=== PATIENT | female | born 1965 | race Caucasian/White ===

== ENCOUNTER 2018-06-22 06:37 | Emergency (ER) | payer BC, SELFPAY ==
[2018-06-22 06:39] VITALS: BP 158/102; PULSE 84; RESP 18; TEMP 36.4; O2SAT 100; BMI 28.0
--- NOTE | 2018-06-22 06:44 | RAD_ITS ---
STUDY: X-RAY CHEST REASON FOR EXAM: Female, 52 years old. Chest pain TECHNIQUE: Frontal and lateral views of the chest. COMPARISON: None. FINDINGS: The lungs are clear and expanded. There is no demonstrated pleural abnormality. Normal size heart. Normal mediastinum and luiza. Normal visualized pulmonary arteries. Normal visualized aortic arch and descending thoracic aorta. There are diffuse degenerative changes of the visualized thoracic spine. Normal visualized ribs, clavicles, and shoulders. There is no demonstrated abnormality of the visualized soft tissue structures of the upper abdomen. RAD/Chest PA and Lateral IMPRESSION: Degenerative changes, as described above. No demonstrated acute cardiopulmonary process. Electronically Signed: Miles Raines, at 7:30 EST Tel , Service support ,
--- NOTE | 2018-06-22 06:44 | EKG12_ITS ---
Test Reason : DIZZINESS Blood Pressure : / mmHG Vent. Rate : 082 BPM Atrial Rate : 082 BPM P-R Int : 146 ms QRS Dur : 076 ms QT Int : 386 ms P-R-T Axes : 075 027 036 degrees QTc Int : 450 ms Normal sinus rhythm Normal ECG Confirmed by PAL MCDONOUGH, DAVID ([id number]), news editor JUANITA SAGASTUME ([id number]) on 06/23/2018 3:33:01 PM Referred By: DAVON Confirmed By:DAVID AGUILLON MD
[2018-06-22 06:47] VITALS: O2SAT 98
[2018-06-22] MEDS: Aspirin 81 MG TAB.CHEW 324 MG PO (06:50)
[2018-06-22] MEDS: 0.9% Normal Saline 1,000 ML 1000 ML IV (06:50)
[2018-06-22 06:57] LABS: Basophil% 1.2 % (0-1); Eosinophil# 0.12 X10^3/uL; Eosinophils% 1.5 % (0-5); Hematocrit 43.6 % (37-47); Hemoglobin 14.9 g/dl (12.0-15.0); Lymphocyte % 14.8 % (19-41); Mean Corp Hgb Conc 34.2 g/gl (32-36); Mean Corpuscular Hgb 33.9 pg (27.0-32.0); Mean Corpuscular Volume 99.1 fL (81-99); Mean Platelet Vol. 9.8 fl (6.2-12.0); Monocyte# 0.66 X10^3/uL; Monocyte% 8.2 % (0-10); Neutrophil # 5.98 X10^3/uL (2.7-7.7); Neutrophil % 73.9 % (47-70); Platelet Count 222 K/mm3 (150-450); RBC Distribution Width CV 12.8 % (11.6-14.6); RBC Distribution Width SD 46.5 fl (35.1-43.9); White Blood Count 8.1 K/mm3 (4.4-11.0)
[2018-06-22 06:59] LABS: POSITIVE COUNT NO; POSITIVE DIFFERENTIAL NO; POSITIVE MORPHOLOGY NO
--- NOTE | 2018-06-22 07:10 | CT_ITS ---
STUDY: CTA CHEST REASON FOR EXAM: Female, 52 years old. Chest and upper back pain RADIATION DOSAGE (If Supplied By Facility): CTDIvol = ( 11.07 ) mGy, DLP = ( 438.33 ) mGycm TECHNIQUE: The examination was performed with the intravenous administration of 100 ml of Isovue 300 contrast material. Post-processing of the angiographic images was performed, with multiplanar reformation and 3D reconstruction. Individualized dose optimization techniques were used for this CT. COMPARISON: None. FINDINGS: Normal enhancement of the main pulmonary artery and right and left pulmonary arteries. Normal enhancement of the bilateral peripheral pulmonary arteries. There is no demonstrated pulmonary embolism. Normal thoracic aorta and visualized great vessels. There is no demonstrated aortic dissection. Normal heart and pericardium. Normal mediastinum. Normal hilar regions. Normal visualized trachea and bronchi. The lungs are well expanded. Normal pulmonary parenchyma. Normal pleura. Normal chest wall structures. Normal osseous structures. Normal visualized upper abdomen. CT/CTA Chest W/WO Contrast IMPRESSION: Normal CTA chest examination, without a demonstrated pulmonary embolism or arterial dissection. Electronically Signed: Rico Ward DO at 8:36 EST Tel , Service support ,
[2018-06-22 07:15] LABS: ALB/GLOB Ratio 1.1 RATIO (0.9-2.4); AST(SGOT) 19 U/L (15-37); Alanine Aminotransfer ALT/SGPT 26 U/L (13-56); Albumin, Serum 3.8 g/dL (3.2-5.0); Alkaline Phosphatase 73 U/L (45-117); Anion Gap 8 (5-15); BUN 10 mg/dL (7-18); BUN/Creat Ratio 13.5 RATIO (10-20); Calcium,Total 8.9 mg/dL (8.5-10.1); Chloride 106 mmol/L (98-107); Creatinine, Serum 0.74 mg/dL (0.55-1.02); EST Glomerular Filtration Rate 87 mL/min (>60); Est Glom Filt Rate - Afr Amer 105 mL/min (>60); Estimated Creatinine Clearance 73.56 ml/min; Globulin 3.5 g/dL (2.2-4.2); Glucose 88 mg/dL (74-106); Lipase 77 U/L (73-393); Magnesium 2.1 mg/dL (1.6-2.6); Potassium 3.5 mmol/L (3.5-5.1); Protein, Total 7.3 g/dL (6.4-8.2); Sodium Level 140 mmol/L (136-145)
--- NOTE | 2018-06-22 07:17 | ED.DCSUM_ITS ---
- ER Visit Summary Date of Service: 06/22/18 Chief Complaint: Chest and upper back pain History of Present Illness: The patient is a 52 F past medical history of anxiety. She has not seen a primary care physician for some time her physician retired and she has not followed up with anybody. She denies any history of cardiac disease or hypertension. She states the last several months she has had intermittent chest pain not specifically associated with exertion. Said this morning while getting around at home she developed upper back between her shoulder blades and chest discomfort. She denied any nausea she did have mild dyspnea. No specific radiation to her arms. She states she has had chest pain before typically not in her back. She denies ever having a cardiac workup. She is a smoker. Has family history of hypertension but not necessarily coronary disease. She denies ever having a stress test or heart cath. Currently she is still having symptoms. Physical Examination: White female initial blood pressure 158/102 temperature 97 pulse ox 98% on room air no hypoxia. HEENT exam unremarkable smell tobacco on her breath. Neck nontender no JVD no lymphadenopathy. Lungs clear to auscultation bilaterally. Heart regular rhythm rate about 80 no murmur. Chest wall nontender. No ecchymosis or bruising no subcu air. Abdomen is soft and nontender normal bowel sounds no peritoneal signs. Patient is moving all 4 extremities. Calves are nontender without edema. Both upper and lower extremities are neurovascularly intact. 5 out of 5 doll wig maker strength. Dorsi plantar flexion intact. Equal symmetrical radial pulses. She has no reproducible back pain. She describes it in her upper back between her shoulder blades but there is no signs of trauma. Neurologically she is awake alert with no focal motor deficits. Test Results: Patient undergo a cardiac workup. Her initial EKG shows a sinus rhythm rate of 82 with no signs of [place] CBC is normal with a white count 8. Hemoglobin 14. Initial chest x-ray 2 views shows a normal cardiac silhouette and mediastinum. Normal aorta. There are chronic changes. No obvious masses. CBC normal white count 8. Hemoglobin 14. Electrolytes unremarkable normal creatinine and gap. Liver enzymes normal. Lipase normal. Troponin normal. Due to the patient's chest and back pain and her elevated blood pressure no other acute causes for her pain I did obtain a CTA of the chest which shows no acute signs of dissection or pulmonary emboli. Read by the radiologist and reviewed by myself. Second troponin performed and was normal also. Emergency Department Course and Treatment: Patient treated with p.o. aspirin. Patient is doing well on repeat exam. I have gone over all of her tests with her. She denies discussed strongly that she needs to stop smoking. Discussed with patient option of being admitted did not want to be admitted. She will be referred to a local primary care physician to follow-up with outpatient stress testing. I attempted to order the stress test myself but was unable due to restrictions on who can order the test. Treatment Plan: Stop smoking. Follow-up with local PCP. Outpatient stress testing. Disposition: Discharge Impression: Acute chest pain of uncertain etiology. History of tobacco abuse This note was generated with [facility] dictation software. It may contain incorrect words, spelling, and punctuation that were not noted in review of the chart prior to signing ED Disposition - Plan for ED Patient: Chief Complaint: Chest Pain Referrals: NOT,DEFINED [NON-STAFF] -
[2018-06-22 07:49] VITALS: BP 140/92; PULSE 83; RESP 16; O2SAT 98
[2018-06-22 08:13] VITALS: PULSE 81; RESP 16; O2SAT 97
[2018-06-22 09:34] VITALS: BP 130/84; PULSE 81; RESP 16; O2SAT 97
--- NOTE | 2018-06-22 10:22 | ED.DEP ---
ED Disposition - Plan for ED Patient: Disposition: Home or Assisted Living Chief Complaint: Chest Pain Instructions: ED Chest Pain Atypical Unkn Cause Referrals: Abdoulaye Ross MD [STAFF PHYSICIAN] - As soon as possible Additional Instructions: Stop smoking !! Call follow-up Dr. Abdoulaye Ross or another local primary care physician. Discussed with him possible outpatient stress testing.
== END 2018-06-22 10:28 | disposition home or self-care (01) ==
PROVIDERS: Emergency Medicine; Emergency Provider Emergency Medicine
DX: R07.9 Chest pain, unspecified (principal); F17.200 Nicotine dependence, unspecified, uncomplicated
CPT/HCPCS: 71046; 71275; 80053; 83690; 83735; 84484; 85025; 93005; 96360; 99284; J7030; Q9967; A4216

== ENCOUNTER → 2018-08-30 15:45 | Outpatient (CLI) | payer BC, SELFPAY ==
--- NOTE | 2018-08-30 15:47 | BI_ITS ---
MAMMOGRAPHY - BILATERAL SCREENING 3-D JD SYNTHESIS REASON FOR EXAM: Female, 53 years old. Bilateral Screening 3-D tomosynthesis PERTINENT HISTORY: No significant family history. TECHNIQUE: 2-D mammograms and 3-D Jd synthesis of the breast (s) were performed. CAD was performed. COMPARISON: October 03, 2013 FINDINGS: The breast composition is heterogeneously dense that can obscure small breast masses. There are stable lymph nodes. No dense spiculated masses or suspicious microcalcifications are identified. No architectural distortion is identified. There is no skin thickening or retraction. There has been no significant change since the prior study. BI/SCREENING MAMM (CAD), BILAT IMPRESSION: No mammographic signs of malignancy. Routine yearly mammograms recommended. ASSESSMENT CATEGORY: BIRADS Category 2: Benign. A letter regarding these results will be sent to the patient by the facility within 30 days. FOLLOW UP RECOMMENDATION: Yearly follow up mammogram recommended. (A) Approximately 10% of breast cancers are not detected by mammography. A normal mammogram should not delay biopsy of a clinically suspicious abnormality. Electronically Signed: Dennis Montana MD at 17:16 EDT , Service support ,
== END ==
PROVIDERS: Family Provider Family Medicine; PCP Family Medicine; Referring Provider Family Medicine; Visit Provider Family Medicine
DX: Z12.31 Encounter for screening mammogram for malignant neoplasm of breast (principal)
CPT/HCPCS: 77063; 77067

== ENCOUNTER 2019-01-25 21:59 | Emergency (ER) | payer BC, SELFPAY ==
[2019-01-25 22:00] VITALS: BP 164/105; PULSE 87; RESP 16; TEMP 36.8; O2SAT 98; BMI 25.7
[2019-01-25 22:04] VITALS: TEMP 36.8
--- NOTE | 2019-01-25 22:13 | ED.VIS.GEN ---
History of Present Illness Chief Complaint: Abd Pain Informant: Patient Onset: Days - Onset of discomfort January 23. She said initially was upper abdomen now it is bilateral. Context: Sudden Onset Timing: Continuous Quality: Discomfort and distention Location: Generalized presently Current Severity: Mild Maximum Severity: Moderate Worsened by: Supine position Relieved by: Nothing Associated Symptoms: Nausea, bloating and 3 bowel movements today Narrative: Patient is a 53-year-old woman who has no history of GERD, food intolerance, biliary disease, gynecologic disease or urologic. There is no history of renal or ureteral calculus. She has a chronic cough secondary to smoking. She denies abdominal surgery. She denies fever, chills night sweats. She denies chest pain, pressure or tightness. She denies dyspnea or dyspnea with exertion. She denies orthopnea or PND. She denies leg pain, swelling or discoloration. There is no history of PE or DVT. She denies dysuria, frequency, urgency or hematuria. Prior similar symptoms: No Recent Illness/Hospitalization: No - Past Medical History (1) No significant past medical history Status: Acute Past Medical History - Allergies and Home Meds Allergies/Adverse Reactions: Allergies Penicillins [PCN] Allergy (Verified 01/25/19 22:04) Rash omeprazole [From Prilosec] Adverse Reaction (Verified 01/25/19 22:04) Nausea/Vom/Diarrhea omeprazole magnesium [From Prilosec] Adverse Reaction (Verified 01/25/19 22:04) Nausea/Vom/Diarrhea Primary Care Physician: Sara Swanson MD [Primary Care Provider] - Prior records reviewed: Yes Surgical History: - - EGD, laryngoscopy Lives: With Family Smoking Status: Current every day smoker Alcohol: Rare Drugs: None Review of Systems General: Denies: Chills, Fever, Sweats Eyes: Denies: Visual changes - bilaterally, Diplopia ENT: Denies: Rhinorrhea, Sore throat Cardiovascular: Denies: Chest pain, Palpitations, Heart racing Respiratory: Denies: Dyspnea, Cough, Dyspnea on exertion, Orthopnea, Paroxysmal nocturnal dyspnea Gastrointestinal: Reports: Abdominal pain, Nausea, Diarrhea. Denies: Vomiting, Constipation, Melena, Hematochezia Genitourinary: Denies: Dysuria, Hematuria, Frequency Musculoskeletal: Denies: Myalgias, Arthralgias, Neck pain, Back pain, Swelling, Extremity Pain Skin: Denies: Rash, Wounds Neurological: Denies: Headache, Weakness, Numbness Hematologic: Denies: Easy bruising, Easy bleeding Allergy: Denies: Uticaria, Swelling of the mouth Physical Exam Vital Signs/Narrative: Vital Signs Temp Pulse Resp BP Pulse Ox 01/25/19 22:00 98.2 F 87 16 164/105 H 98 Inital Vital Signs reviewed: Yes General: Well nourished, Well developed, No Acute Distress Head: Normocephalic, Atraumatic Eyes: Perrl, EOMI. Negative for: Pale conjunctiva, Scleral icterus ENT: Moist mucous membranes, No rhinorrhea Neck: Supple, Nontender, No lymphadenopathy, No JVD Cardiovascular: Regular rate, Regular rhythm, No murmurs, Normal S1, Normal S2 Respiratory: No distress, CTA bilaterally, Chest nontender Abdomen: Soft, Nontender, Hypoactive bowel sounds - Tenderness distended and tympanitic to percussion. Negative for: Nondistended, Hepatomegaly, Splenomegaly, Pulsatile mass, Ventral hernia, Inguinal hernia, Umbilical hernia Rectal: Deferred Back: Nontender, Normal Inspection Extremities: Nontender, No edema Skin: Normal color, No rash Neurological: Alert, Oriented x3, Cranial nerves II-XII grossly intact, Normal Strength, Normal Sensation, Normal Gait Psychological: Normal affect, Normal Mood Diagnostic/Tx/Re-eval Chest X-Ray - ED: Read by ED Physician, - - Review x-ray of the abdomen was interpreted by me at 2234. Chest portion reveals no acute process. Cardiac silhouette is normal. Mediastinum is normal. Lung parenchyma is normal. Osseous structures appear normal. The abdominal portion reveals no ossific increased gas pattern with increased fecal matter left side of the colon. Also increase feces noted sigmoid region. No evidence of renal calculus. Impressions Acute Abdomen Series 01/25/19 22:30 IMPRESSION: Normal x-ray examination of the chest, abdomen, and pelvis. Electronically Signed: Johnnie Duque MD at 22:44 EDT , Service support , 01/25/19 22:30 Acute Abdomen Inc Chest [RAD] Stat Laboratory Results 01/25/19 01/25/19 22:21 22:21 WBC 8.2 RBC 4.60 Hgb 16.2 H Hct 46.2 MCV 100.4 H MCH 35.2 H MCHC 35.1 RDW Std Deviation 47.3 H RDW Coeff of Nikko 12.6 Plt Count 236 MPV 9.6 Immature Gran % (Auto) 0.700 Neut % (Auto) 71.3 H Lymph % (Auto) 15.7 L [place] % (Auto) 9.0 Eos % (Auto) 2.3 Baso % (Auto) 1.0 Absolute Neuts (auto) 5.8 Absolute Lymphs (auto) 1.29 Nucleated RBC % 0 Sodium 138 Potassium 3.8 Chloride 104 Carbon Dioxide 30.0 Anion Gap 4 L BUN 12 Creatinine 0.74 Estim Creat Clear Calc 75.92 Est GFR (MDRD) Af Amer 105 Est GFR (MDRD) Non-Af 87 BUN/Creatinine Ratio 16.2 Glucose 100 Calcium 9.8 - Medical Decision Making With complaint of bloating and distended tympanitic abdomen with no sniffing a tenderness and decreased bowel sounds concern patient may have ileus versus obstipation since she describes small stool today. She states this is diarrhea because she went 3 times. He was treated with 20 mg of Bentyl p.o. If laboratory results are normal suspect patient's abdominal discomfort is secondary to obstipation. ED Disposition - Plan for ED Patient: Disposition: Home or Assisted Living Diagnosis: Abdominal pain, bilateral upper quadrant, Obstipation Prescriptions: Dicyclomine HCl [Bentyl] 20 mg PO TIDAC #10 cap Prescription Printed Referrals: Sara Swanson MD [Primary Care Provider] - 3-5 Days if not improving Additional Instructions: Recommend Metamucil 3 times a day for the next week then twice a day.
[2019-01-25] MEDS: Dicyclomine 10 MG Capsule 20 MG PO (22:17)
--- NOTE | 2019-01-25 22:30 | RAD_ITS ---
STUDY: X-RAY - ACUTE ABDOMINAL SERIES REASON FOR EXAM: Female, 53 years old. Abdominal distention and pain TECHNIQUE: Single view of the chest. Supine, and erect view(s) of the abdomen were obtained. COMPARISON: 06/22/2018. FINDINGS: The lungs are clear and expanded. Normal size heart. Normal mediastinum and luiza. Normal visualized pulmonary arteries. Normal visualized aortic arch and descending thoracic aorta. There is a non-specific bowel gas pattern. No dilated loops of bowel. No evidence for obstruction. The soft tissue structures of the abdomen and pelvis are unremarkable. Normal visualized osseous structures. RAD/Acute Abdomen Inc Chest IMPRESSION: Normal x-ray examination of the chest, abdomen, and pelvis. Electronically Signed: Johnnie Duque MD at 22:44 EDT , Service support ,
[2019-01-25 22:32] LABS: Absolute Lymphocyte Count 1.29 X10^3/uL (0.83-4.51); Absolute Neutrophil Count 5.8 X10^3/uL (2.0-7.7); Basophil# 0.08 X10^3/uL; Eosinophil# 0.19 X10^3/uL; Eosinophils% 2.3 % (0-5); Hematocrit 46.2 % (37-47); Hemoglobin 16.2 g/dL (12.0-15.0); Lymphocyte # 1.29 X10^3/ul (4.0); Lymphocyte % 15.7 % (19-41); Mean Corp Hgb Conc 35.1 g/dL (32-36); Mean Corpuscular Hgb 35.2 pg (27.0-32.0); Mean Corpuscular Volume 100.4 fL (81-99); Mean Platelet Vol. 9.6 fl (6.2-12.0); Monocyte# 0.74 X10^3/uL; NRBC Flagged by Analyzer 0 % (0-5); Neutrophil # 5.84 X10^3/uL (2.7-7.7); Neutrophil % 71.3 % (47-70); Platelet Count 236 K/mm3 (150-450); RBC Distribution Width CV 12.6 % (11.6-14.6); RBC Distribution Width SD 47.3 fl (35.1-43.9); White Blood Count 8.2 K/mm3 (4.4-11.0)
[2019-01-25 22:43] LABS: Anion Gap 4 (5-15); BUN 12 mg/dL (7-18); BUN/Creat Ratio 16.2 RATIO (10-20); Calcium,Total 9.8 mg/dL (8.5-10.1); Chloride 104 mmol/L (98-107); Creatinine, Serum 0.74 mg/dL (0.55-1.02); EST Glomerular Filtration Rate 87 mL/min (>60); Est Glom Filt Rate - Afr Amer 105 mL/min (>60); Estimated Creatinine Clearance 75.92 ml/min; Glucose 100 mg/dL (74-106); Potassium 3.8 mmol/L (3.5-5.1); Sodium Level 138 mmol/L (136-145)
== END 2019-01-25 22:59 | disposition home or self-care (01) ==
PROVIDERS: Emergency Provider Emergency Medicine; Family Provider Family Medicine; PCP Family Medicine
DX: R10.11 Right upper quadrant pain (principal); R10.12 Left upper quadrant pain; K59.00 Constipation, unspecified; F17.200 Nicotine dependence, unspecified, uncomplicated
CPT/HCPCS: 74022; 80048; 85025; 99283; A4216

== ENCOUNTER 2020-08-01 04:54 | Emergency (ER) | payer OTHER, SELFPAY ==
[2020-08-01 04:55] VITALS: BP 170/100; PULSE 85; RESP 17; TEMP 36.9; O2SAT 100; BMI 29.2
[2020-08-01 04:57] VITALS: BP 170/100; PULSE 85; RESP 17; TEMP 36.9; O2SAT 100
[2020-08-01 05:01] VITALS: BP 162/97
--- NOTE | 2020-08-01 05:03 | ED.RN ---
called for ekg per rn request, pulled old ekgs for
--- NOTE | 2020-08-01 05:08 | RAD_ITS ---
STUDY: X-RAY CHEST REASON FOR EXAM: Female, 54 years old. covid+16 days ago. Continues coughing, coughed all night. Chest pain/pressure. Can''t get a deep breath. Pain on left side of chest with deep inspiration. TECHNIQUE: Single AP portable view of the chest. COMPARISON: 01/25/2019 FINDINGS: Lungs are mildly hyperinflated. The lungs are clear. There is no demonstrated pleural abnormality. Normal size heart. Normal mediastinum and luiza. Normal visualized pulmonary arteries. Normal visualized aortic arch and descending thoracic aorta. Normal visualized thoracic spine. Normal visualized ribs, clavicles, and shoulders. There is no demonstrated abnormality of the visualized soft tissue structures of the upper abdomen. RAD/Chest 1 View (Portable) IMPRESSION: Hyperinflated lungs. Lungs are clear. Electronically Signed: Rico Ward DO at 5:27 EST Tel , Service support ,
--- NOTE | 2020-08-01 05:08 | EKG12_ITS ---
Test Reason : CP Blood Pressure : / mmHG Vent. Rate : 080 BPM Atrial Rate : 080 BPM P-R Int : 138 ms QRS Dur : 082 ms QT Int : 372 ms P-R-T Axes : 050 052 032 degrees QTc Int : 429 ms Normal sinus rhythm Normal ECG Confirmed by RALPH PARISH MD ([id number]), newspaper editor managing CHERRIE ENRIQUEZ ([id number]) on 08/06/2020 10:34:15 AM Referred By: LYDIA Confirmed By:RALPH PARISH MD
[2020-08-01 05:11] VITALS: O2SAT 99
[2020-08-01 05:20] LABS: Absolute Lymphocyte Count 1.23 X10^3/uL (0.83-4.51); Absolute Neutrophil Count 4.5 X10^3/uL (2.0-7.7); Basophil# 0.09 X10^3/uL; Basophil% 1.3 % (0-1); Eosinophil# 0.07 X10^3/uL; Hematocrit 42.3 % (37-47); Hemoglobin 14.6 g/dL (12.0-15.0); Lymphocyte # 1.23 X10^3/ul (4.0); Lymphocyte % 18.4 % (19-41); Mean Corp Hgb Conc 34.5 g/dL (32-36); Mean Corpuscular Hgb 33.3 pg (27.0-32.0); Mean Corpuscular Volume 96.6 fL (81-99); Mean Platelet Vol. 10.3 fl (6.2-12.0); Monocyte# 0.75 X10^3/uL; Monocyte% 11.2 % (0-10); NRBC Flagged by Analyzer 0 % (0-5); Neutrophil # 4.51 X10^3/uL (2.7-7.7); Neutrophil % 67.7 % (47-70); Platelet Count 259 K/mm3 (150-450); RBC Distribution Width CV 12.7 % (11.6-14.6); RBC Distribution Width SD 45.8 fl (35.1-43.9); Red Blood Count 4.38 M/mm3 (4.2-5.4); White Blood Count 6.7 K/mm3 (4.4-11.0)
[2020-08-01 05:25] LABS: Prothrombin Time (Protime)PT. 12.2 SECONDS (11.7-14.9)
[2020-08-01 05:27] LABS: D-Dimer Quantitative (DVT/PE) 0.33 FEU/ug/m (0.27-0.49)
--- NOTE | 2020-08-01 05:31 | ED.RN ---
DISCONTINUED ISOLATION PRECAUTIONS.
--- NOTE | 2020-08-01 05:33 | ED.VIS.DYS ---
History of Present Illness Chief Complaint: Chest Pain Informant: Patient Onset: Days Quality: Wheezing Associated Symptoms: Clear sputum, Cough. Negative for: Fever, Rhinorrhea, Sweats Chest Pain: Pressure Narrative: Patient is a 54-year-old female with history of tobacco use presenting with cough. Patient states she had Covid 21 days ago and has a positive after 5 days of symptoms. She states her course was relatively mild. Her symptoms had resolved however over the past week she has had a worsening cough. She states her cough is productive of clear sputum. She states last night she could not sleep because she was coughing all night which is why she came to the ER today. She notes that she is also had chest pressure and tightness. Patient denies any fever or chills. She denies any swelling of her legs. She has a history of DVT or PE. Patient states she had a telehealth appointment yesterday afternoon but canceled because she did not think that actually able to do anything for her. She is concerned she might have an associated pneumonia. No GI or symptoms. No other complaints at this time. Prior similar symptoms: No Recent Illness/Hospitalization: Yes - Covid 21 days ago Past Medical History - Allergies and Home Meds Allergies/Adverse Reactions: Allergies Penicillins [PCN] Allergy (Verified 01/25/19 22:04) Rash omeprazole [From Prilosec] Adverse Reaction (Verified 01/25/19 22:04) Nausea/Vom/Diarrhea omeprazole magnesium [From Prilosec] Adverse Reaction (Verified 01/25/19 22:04) Nausea/Vom/Diarrhea Primary Care Physician: Sara Swanson MD [Primary Care Provider] - Past Medical History: None Surgical History: - - EGD, laryngoscopy Smoking Status: Current every day smoker Review of Systems General: Denies: Chills, Fever, Sweats Eyes: Denies: Visual changes - bilaterally, Diplopia ENT: Denies: Rhinorrhea, Sore throat Cardiovascular: Reports: - - Chest tightness. Denies: Chest pain, Palpitations Respiratory: Reports: Cough, Sputum. Denies: Dyspnea, Dyspnea on exertion Gastrointestinal: Denies: Abdominal pain, Nausea, Vomiting, Diarrhea, Melena, Hematochezia Genitourinary: Denies: Dysuria, Hematuria, Frequency Musculoskeletal: Denies: Back pain, Extremity Pain Skin: Denies: Rash, Wounds Neurological: Denies: Headache, Weakness, Numbness Physical Exam Vital Signs/Narrative: Vital Signs Temp Pulse Resp BP Pulse Ox 08/01/20 05:11 99 08/01/20 05:01 162/97 H 08/01/20 04:57 98.4 F 85 17 170/100 H 100 08/01/20 04:55 98.4 F 85 17 170/100 H 100 Inital Vital Signs reviewed: Yes General: Well nourished, Well developed, No Acute Distress Head: Normocephalic, Atraumatic Eyes: Perrl, EOMI ENT: Moist mucous membranes, No rhinorrhea Neck: Supple, Nontender, No JVD Cardiovascular: Regular rate, Regular rhythm, No murmurs Respiratory: No distress, CTA bilaterally, Chest nontender. Negative for: Wheezing, Diminished Abdomen: Soft, Nontender, Nondistended, Normal bowel sounds Back: Nontender, Normal Inspection Extremities: Nontender, No edema Skin: Normal color, No rash Neurological: Alert, Oriented x3, Cranial nerves II-XII grossly intact, Normal Strength, Normal Sensation Psychological: Normal affect, Normal Mood Diagnostic/Tx/Re-eval Chest X-Ray - ED: 1 View, Read by ED Physician, Read by Radiologist, No Acute Disease, - - Hyperinflated Clinical Impression(s) from Imaging Studies Chest X-Ray 08/01/20 05:08 IMPRESSION: Hyperinflated lungs. Lungs are clear. Electronically Signed: Rico Ward DO at 5:27 EST Tel , Service support , Laboratory Data 08/01/20 08/01/20 08/01/20 05:10 05:10 05:10 WBC 6.7 RBC 4.38 Hgb 14.6 Hct 42.3 MCV 96.6 MCH 33.3 H MCHC 34.5 RDW Std Deviation 45.8 H RDW Coeff of Nikko 12.7 Plt Count 259 MPV 10.3 Immature Gran % (Auto) 0.400 Neut % (Auto) 67.7 Lymph % (Auto) 18.4 L [place] % (Auto) 11.2 H Eos % (Auto) 1.0 Baso % (Auto) 1.3 H Absolute Neuts (auto) 4.5 Absolute Lymphs (auto) 1.23 Nucleated RBC % 0 PT 12.2 INR 1.0 D-Dimer Quant (PE/DVT) 0.33 Sodium 137 Potassium 3.4 L Chloride 104 Carbon Dioxide 28.0 Anion Gap 5 BUN 13 Creatinine 0.80 Estim Creat Clear Calc 66.50 Est GFR (MDRD) Af Amer 96 Est GFR (MDRD) Non-Af 80 BUN/Creatinine Ratio 16.3 Glucose 122 H Calcium 9.2 Troponin I < 0.015 - Rhythm Strip Rhythm Strip: Sinus Rhythm Rate: 80 Ectopy: None - EKG Initial EKG Interpretation: Sinus Rhythm, - - Normal sinus rhythm at a rate of 80Normal intervalsNormal axisNormal ST segmentsNo change prior to prior EKG on 06/22/2018Interpreted by emergency medicine physician - Medical Decision Making Patient is evaluated for cough. She also has associated chest tightness. Her symptoms going on for a week. They were worse tonight. Patient's vital signs are significant only for hypertension. She does not have a presentation consistent with a hypertensive emergency. Her symptoms are atypical for ACS. EKG does not show any acute ischemic changes and her troponin is negative. Patient's only PE risk factor is age. Her D-dimer is normal and I do not suspect a PE or think a CTA is indicated at this time. Chest x-ray does not show any acute infiltrates or or other acute process. Patient lung sounds are clear. While she did have Covid 3+ weeks ago her symptoms have resolved and I do not think this is necessarily related to her Covid infection. Especially as she describes it as being a mild 1. Patient has a benign physical exam. Patient reports of postnasal drip sensation. Likely she has a viral illness/bronchitis. I do not appreciate any wheezing on exam however patient will be given an albuterol inhaler she does have hyperinflation and a history of tobacco use. I do not think steroids are indicated at this time. Patient is not hypoxic. Patient is counseled to avoid medications with decongestants in them as this might be causing her blood pressure be elevated. She states she has been taking Advil D all week. She is encouraged to follow-up with her primary care doctor. Patient is counseled on signs and symptoms requiring return to the emergency room. Patient verbalizes agreement and understand this plan. Patient discharged home in stable and improved condition. ED Disposition - Plan for ED Patient: Disposition: Home or Assisted Living Diagnosis: Cough, Tobacco abuse, Tightness in chest Instructions: ED Bronchitis, No Antibiotic (Adult) Prescriptions: Benzonatate [Tessalon Perle] 200 mg PO TID PRN PRN #20 cap PRN Reason: Cough Transmission Status: Pending to [id number] Albuterol Inhaler [Ventolin Hfa] 1 - 2 puff INHALATION Q4H PRN PRN #1 inhaler PRN Reason: Wheezing Transmission Status: Pending to [id number] Referrals: Sara Swanson MD [Primary Care Provider] - Additional Instructions: You do not have any findings consistent with pneumonia, blood clots or heart attack. You are safe to go home today. I suspect you have a viral syndrome that is causing you to have your symptoms. Please follow-up with your primary care doctor. Try to avoid medications with decongestants in them as they can cause your blood pressure to become elevated.
[2020-08-01 05:34] LABS: Anion Gap 5 (5-15); BUN 13 mg/dL (7-18); BUN/Creat Ratio 16.3 RATIO (10-20); Calcium,Total 9.2 mg/dL (8.5-10.1); Chloride 104 mmol/L (98-107); EST Glomerular Filtration Rate 80 mL/min (>60); Est Glom Filt Rate - Afr Amer 96 mL/min (>60); Glucose 122 mg/dL (74-106); Potassium 3.4 mmol/L (3.5-5.1); Sodium Level 137 mmol/L (136-145)
[2020-08-01 06:07] VITALS: BP 160/99; PULSE 86; RESP 18; O2SAT 100
== END 2020-08-01 06:07 | disposition home or self-care (01) ==
PROVIDERS: Emergency Provider Emergency Medicine; PCP Family Medicine
DX: R05 Cough (principal); F17.200 Nicotine dependence, unspecified, uncomplicated; R07.89 Other chest pain; Z86.718 Personal history of other venous thrombosis and embolism
CPT/HCPCS: 71045; 80048; 84484; 85025; 85379; 85610; 93005; 99283; A4216

== ENCOUNTER → 2020-10-12 13:22 | Outpatient (CLI) | payer OTHER, SELFPAY ==
--- NOTE | 2020-10-12 13:24 | VDLE_ITS ---
Reason For Study: Pain, Swelling Procedure LEFT Exam performed in department. GSV is normal. This is a venous duplex using B-mode, color CFV is compressible, spontaneous, phasic, flow and spectral Doppler. competent, and demonstrates normal A preliminary report was called and/or faxed augmentation. to Dr. Swanson. FV is compressible, spontaneous, phasic, competent and demonstrates normal augmentation. POP V is compressible, spontaneous, phasic, competent and demonstrates normal augmentation. T/P Trunk is compressible. PTV is compressible. LT PerV is compressible. Hypoechoic, non vascular structure noted Lt Pop Fossa measuring 4.94cm x 1.04cm. VL/Venous Duplex US, Unilateral Interpretation Summary There is no evidence of left lower extremity deep vein thrombosis. Left great s aphenous vein appears patent and compressible segmentally. Left popliteal space 4.94 x 1.04 cm cystic structure location tejeda consistent with a Gale's cyst Ordering Physician: Sara Swanson Referring Physician: Sara Swanson Performed By: Alee Curry, IKZZY, RVT
== END ==
PROVIDERS: PCP Family Medicine; Referring Provider Family Medicine; Visit Provider Family Medicine
DX: M71.22 Synovial cyst of popliteal space [Baker], left knee (principal); M79.662 Pain in left lower leg
CPT/HCPCS: 93971

== ENCOUNTER 2021-02-03 11:58 | Emergency (ER) | payer OTHER, SELFPAY ==
[2021-02-03 11:59] VITALS: BP 152/92; PULSE 79; RESP 16; TEMP 36.5; O2SAT 97; BMI 24.6
--- NOTE | 2021-02-03 12:56 | ED.RN ---
1256: Pt states i feel fine and i dont want to wait here all day. This RN explained the importance of being evaluated by an ED physician, but pt insists on leaving. Informed pt that if she feels worse she may always return.
--- NOTE | 2021-02-03 13:30 | EKG12_ITS ---
Test Reason : CP Blood Pressure : / mmHG Vent. Rate : 071 BPM Atrial Rate : 071 BPM P-R Int : 148 ms QRS Dur : 082 ms QT Int : 398 ms P-R-T Axes : 045 015 017 degrees QTc Int : 432 ms Normal sinus rhythm with sinus arrhythmia Normal ECG Confirmed by JEM MCDONOUGH, RALPH ([id number]), photo editor CHERRIE ENRIQUEZ ([id number]) on 02/07/2021 10:56:14 AM Referred By: JENNIFER/AYO Confirmed By:RALPH PARISH MD
== END 2021-02-03 12:56 | disposition left against medical advice (07) ==
LOC: ED 13:08
PROVIDERS: PCP Family Medicine
DX: R07.9 Chest pain, unspecified (principal); Z53.21 Procedure and treatment not carried out due to patient leaving prior to being seen by health care provider
CPT/HCPCS: 93005

== ENCOUNTER → 2021-02-05 06:23 | Outpatient (CLI) | payer OTHER, SELFPAY ==
--- NOTE | 2021-02-05 06:33 | MRI_ITS ---
STUDY: MRI CERVICAL SPINE WITHOUT CONTRAST REASON FOR EXAM: Female, 55 years old. WEAKNESS RIGHT ARM, HX DISC HERNIATIONS TECHNIQUE: Standardized fat and water weighted pulse sequences were obtained in the sagittal and axial planes. COMPARISON: 01/17/2013 FINDINGS: Normal foramen magnum and brainstem-cervical cord junction. Normal craniovertebral junction. Normal anterior atlantoaxial articulation. Normal odontoid process. Normal cervical lordosis. Normal vertebral bodies and posterior osseous elements. C2-3: Normal endplates. Normal disc height, signal and morphology. Normal central canal and intervertebral neural foramina. C3-4: Narrowed disc space and mild endplate spurring. Normal central canal. Moderate right neuroforaminal stenosis and mild to moderate narrowing on the left secondary to bony hypertrophy. C4-5: Mild endplate spurring.. Normal disc height, signal and morphology. Mild narrowing of the central canal.. Moderate bilateral neuroforaminal stenosis secondary to bony hypertrophy. C5-6: Mild endplate spurring.. Normal disc height, signal and large right posterolateral/foraminal disc protrusion.. Mild narrowing of central canal. Severe right neuroforaminal stenosis secondary to disc disease and bony hypertrophy C6-7: Normal endplates. Normal disc height, signal and morphology. Normal central canal and moderate to severe bilateral neuroforaminal stenosis secondary to bony hypertrophy. C7-T1: Normal endplates. Normal disc height, signal and morphology. Normal central canal and intervertebral neural foramina. Normal cervical cord. Normal visualized soft tissue structures. There has been mild interval progression of the degenerative disease when compared with previous exam MRI/Spine Cervical (Routine) IMPRESSION: No evidence for acute fracture or other significant bony pathology.. Spondylosis and multilevel spinal stenosis secondary to disc disease and bony hypertrophy most severe at C5-6 and C6-7 Findings as above Electronically Signed: Dawson Ramos MD at 15:49 EDT , Service support ,
== END ==
PROVIDERS: PCP Family Medicine; Referring Provider Family Medicine; Visit Provider Family Medicine
DX: M47.22 Other spondylosis with radiculopathy, cervical region (principal)
CPT/HCPCS: 72141

== ENCOUNTER 2021-02-06 08:00 | Outpatient (RCR) | payer OTHER, SELFPAY ==
--- NOTE | 2021-01-15 12:48 | HP.PTEVAL_ITS ---
Patient's Visit Information DEWEY KIM is a 55 year old F referred to Physical Therapy by Dr. Sara Swanson MD with a diagnosis of R CERVICAL RADICULOPATHY. Date of Evaluation: 01/15/21 Physical Therapist: Angie Shay PT, Cert MDT - Visit Plan Frequency: 2-3x /Week Duration: 4-6 Weeks Plan: START SLOW AND PROGRESS TOLERATED. US TO RIGHT SHLD AND ELBOW NEEDED. FOCUS ON RIGHT UE PAIN RELIEF, ROM AND STRENGTH. POSTURE CORRECTION/STRENGTHENING, INSTRUCTION IN APPROPRIATE BODY MECHANICS AND ACTIVITY MODIFICATIONS. SHANNAN UE ROM, STRETCHING AND STRENGTHENING. HEP INSTRUCTION. CONSIDER: REP RET IN SITTING. REP RET IN LYING. SCAP SQUEEZES. DEEP NECK F LEXOR LIFT. PRONE W'S. UE WALL SLIDES. PRONE ROWS. UE TBAND WALL WALKS. ANTERIOR/MIDDLE SCALENE STRETCH. UPPER TRAP STRETCH. LEVATOR SCAPULAE STRETCH. CHEST/PEC MAJOR AND MINOR STRETCH - Subjective Work/Leisure: [employer]. ON MEDICAL LEAVE FOR THIS SINCE 01/03/21 FOR THIS. HAS BEEN WORKING AT [employer] ABOUT 5 YEARS. WORK INVOLVES STANDING MOST OF THE TIME AND CONSTANT MOVEMENT OF ARMS AND LIFTING. SOMETIMES LIFTS 75 LBS. Present symptoms: PAIN DOWN ENTIRE RIGHT ARM FROM SHLD TO WRIST. NUMBNESS AND TINGLING SOMETIMES AT NIGHT. RIGHT UE IS VERY WEAK. FATIGUE. Present since: FLARE UP STARTED ABOUT 2-3 WEEKS AGO. Pain Scale: Worst - 8/10 Least - 4/10. Currently: 5/10. Commenced as a result of: NO APPARENT REASON. Symptoms at onset: RIGHT UPPER ARM PAIN AND ELBOW SWELLING AND R UE WEAKNESS. Worse: LIFTING, REACHING, BENDING ELBOW. Better: SUPPORTING ARM AND NOT USING IT. Disturbed sleep: YES - WAKES HER UP AT NIGHT. Previous history/Previous treatment: PATIENT HAS HISTORY OF RIGHT CERVICAL RADICULOPATHY WITH NERVE DAMAGE 2012 TO 2014 TREATED WITH PT AND INJECTIONS BUT NO SURGERY. PATIENT RPEORTS ABOUT 75% IMPROVEMENT IN HER RIGHT UE PRIOR TO THIS FLARE UP. NO TREATMENT SINCE ABOUT 2014 FOR THIS. This episode: AT ONSET: AIR CAST, ICE AND IBUPROFEN WITH DX OF TENNIS ELBOW AT WORK INITIALLY. Dizziness: NO. Tinnitis: NO. Nausea: NO. Shortness of Breath: NO. Difficulty Swollowing: NO. Gait: NORMAL. Accidents: NO. Unexplained weight loss: NO. Imagin EMG'S AND 3 MRI'S IN THE PAST FOR CERVICAL RADICULOPATHY. MRI ORDERED BUT NOT SCHEDULED YET. PMH/Recent major surgery: SMOKER. ANXIETY. - Objective Sitting Posture/Standing Posture: POOR. FH. RSH'S. Active Correction of posture: NE. Other Observations: INDEP GAIT AND TRANSFERS. Motor deficit: RIGHT APPLICATION SUPPORT LEAD STRENGTH 22 LBS, LEFT 35 LBS. PATIENT IS RIGHT HAND DOMINANT BUT HAS H/O RIGHT UE N. DAMAGE. RIGHT WRIST STRENGTH INTO FLEX AND EXT 4/5. RIGHT ELBOW FLEX 3-/5, ELBOW EXT 4-/5, SHLD FLEX 3-/5, ABD 3-/5, IR 4-/5, ER 3-/5. ROM deficit: 145 DEG RIGHT SHLD FLEX (ABOUT 20% LIMITED COMPARED TO THE LEFT) AND FULL RIGHT ELBOW EXTENSION. 125 DEG ACTIVE RIGHT SHLD FLEXION AND 106 DEG ABD. SUPINE PASSIVE R SHLD ER TO 55 DEG AND IR TO 43 DEG BUT ACTIVE ER TO 30 DEG. AROM TESTING OF RIGHT UE IN SITTING INCREASES C/O RIGHT SHLD PAIN AND ELBOW PAIN. Dural Signs: POSITIVE RIGHT UE. Cervical Mvmt Loss: Flex: NIL. Pro: NIL. Ext: MOD TO URMILA. Ret: MOD. RSB: MOD. LSB: MOD. R Rot: MIN. L Rot: MIN. PATIENT C/O INCREASED PAIN IN NECK WITH CERVCIAL ROM TESTING ALL PLANES ESPECIALL CERVICAL EXTENSION. CERVICAL ROM TESTING HAS NE ON RIGHT UE SX'S. Postural strength: POOR. Palpation: TENDERNESS WITH PALPATION OF SHANNAN UT REGIONS AND INCREASED MUSCLE TONE AND TRIGGER POINTS OF UT'S BUT NO ACUTE UPPER THORACIC, CERVICAL OR RIGHT SHLD TENDERNESS. SHE IS TENDER HOWEVER IN THE RIGHT LATERAL ELBOW REGION. OTHER: POSITIVE RIGHT LATERAL EPICONDYLITIS TEST. TREATMENT: INSTRUCTED PATIENT TO CONTINUE WITH ICE AND REST. ALSO INSTRUCTED PATIENT IN STANDING TABLE WALK AWAYS FOR GENTLE PASSIVE SHLD FLEXION. - Balance/Special Test Scores Oswestry Neck Score: 22 - Goals Goal 1:: DECREASE C/O NECK AND RIGHT UE SX'S. Goal Time Frame: 4-6 Weeks Goal 2:: IMPROVE PERSONAL CARE, LIFTING, READING, SLEEP, WORK, DRIVING AND RECREATIONAL FUNCTION. Goal Time Frame: 4-6 Weeks Goal 3:: INSTRUCT IN PROPHYLAXIS Goal Time Frame: 4-6 Weeks Goal 4:: INCREASE RIGHT UE FUNCTIONAL ROM TO WFL TO ALLOW FOR RETURN TO PLOF. Goal Time Frame: 4-6 Weeks Goal 5:: INCREASE R UE FUNCTIONAL STRENGTH TO WFL TO ALLOW FOR RETURN TO PLOF. Goal Time Frame: 4-6 Weeks - Anticipated Interventions Patient/Client Instruction: Educate patient on: Condition, Plan of Care, Risk Factors For the Purpose of:: To improve self management Therapeutic Exercise to Include: Strength training, Body mechanics, Postural training, Flexibilty training, Neuromotor development, Passive ROM, Active ROM, Scapular Strength/Stabilization For the Purpose of:: To decrease pain, To increase ROM, To improve muscle performance and motor function, To improve ability to perform ADL's, To increase tolerance to activity/condition/position, To improve ability of physical actions for home/community/work/leisure Thank you for the opportunity to evaluate your patient. For Medicare and Medicare HMO plans, please review the plan of care and approve it. It will need to be FAXED BACK to us at [phone] for Medicare purposes. For Medicare only, by signing this I certify the plan of care. Please let me know if there are questions or concerns regarding this plan of care. Physician Signature: Date:
--- NOTE | 2021-04-23 13:15 | HP.PT.NRP ---
DEWEY KIM was seen in my office for initial evaluation on 01/15/21. The following Plan of Care was established for this patient: Initial Frequency: 2-3x /Week Initial Duration: 4-6 Weeks Patient/Client Instruction: Educate patient on: Condition, Plan of Care, Risk Factors For the Purpose of:: To improve self management Therapeutic Exercise to Include: Strength training, Body mechanics, Postural training, Flexibilty training, Neuromotor development, Passive ROM, Active ROM, Scapular Strength/Stabilization For the Purpose of:: To decrease pain, To increase ROM, To improve muscle performance and motor function, To improve ability to perform ADL's, To increase tolerance to activity/condition/position, To improve ability of physical actions for home/community/work/leisure This patient was last seen in our office 02/06/21. Pertinent comments regarding their Physical therapy will appear below: This patient has not returned to Physical Therapy and is appropriate to return to MD for further follow-up as needed. At this point I will be discontinuing this patient from physical therapy. I would be happy to see this patient again in the future if found appropriate by the physician. Thank you! Angie Shay, PT, Cert MDT Balance/Gait/Functional tests - Balance/Special Test Scores Oswestry Neck Score: 22
== END 2021-02-06 19:00 | disposition home or self-care (01) ==
LOC: PT 08:00
PROVIDERS: PCP Family Medicine; Referring Provider Family Medicine; Visit Provider Family Medicine
DX: M47.22 Other spondylosis with radiculopathy, cervical region (principal)
CPT/HCPCS: 97035; 97140; 97162; 97530

== ENCOUNTER → 2021-06-13 07:31 | Outpatient (CLI) | payer MEDICAID, SELFPAY ==
--- NOTE | 2021-06-13 07:33 | BI_ITS ---
MAMMOGRAPHY - BILATERAL SCREENING 3-D TOMOSYNTHESIS REASON FOR EXAM: Female, 55 years old. SCREENING PERTINENT HISTORY: No significant family history. TECHNIQUE: 2-D mammograms and 3-D Tomosynthesis of the breast (s) were performed. CAD was performed. COMPARISON: 08/30/2018 FINDINGS: The breast composition is heterogeneously dense that can obscure small breast masses. Scattered benign calcifications are seen. No dense spiculated masses or suspicious microcalcifications are identified. No architectural distortion is identified. There is no skin thickening or retraction. There has been no significant change since the prior study. BI/SCRN MAMM (CAD)W/JD BILAT IMPRESSION: No mammographic signs of malignancy. Routine yearly mammograms recommended. ASSESSMENT CATEGORY: BIRADS Category 1: Negative. A letter regarding these results will be sent to the patient by the facility within 30 days. FOLLOW UP RECOMMENDATION: Yearly follow up mammogram recommended. (A) Approximately 10% of breast cancers are not detected by mammography. A normal mammogram should not delay biopsy of a clinically suspicious abnormality. Electronically Signed: Fritz Torres MD at 9:36 EST Tel , Service support ,
== END ==
PROVIDERS: PCP Family Medicine; Visit Provider Family Medicine
DX: Z12.31 Encounter for screening mammogram for malignant neoplasm of breast (principal)
CPT/HCPCS: 77063; 77067

== ENCOUNTER 2024-09-02 08:24 | Emergency (ER) | payer OTHER, SELFPAY ==
[2024-09-02 08:25] VITALS: BP 206/107; PULSE 91; RESP 16; TEMP 36.4; O2SAT 100; BMI 27.6
--- NOTE | 2024-09-02 08:56 | EKG12_ITS ---
Test Reason : CP Blood Pressure : */* mmHG Vent. Rate : 73 BPM Atrial Rate : 73 BPM P-R Int : 150 ms QRS Dur : 76 ms QT Int : 394 ms P-R-T Axes : -5 37 29 degrees QTcB Int : 434 ms Normal sinus rhythm with sinus arrhythmia Normal ECG Confirmed by JEM MCDONOUGH, RALPH ([id number]), supervising editor trailer CHERRIE ENRIQUEZ ([id number]) on 09/05/2024 7:29:31 AM Referred By: BB Confirmed By: RALPH PARISH MD
--- NOTE | 2024-09-02 09:01 | ED.VIS.CHEST ---
HPI History of Present Illness Chief Complaint: Chest Pain Informant: patient Narrative Narrative: 59-year-old female presenting with chest pain. She states she has had what felt like indigestion off and on for the past week, but daily. She states she has been under quite a bit of stress lately, and her elderly mother is having health problems adding to that. She states last night when she laid down, she was having chest heaviness that was giving her discomfort in her left arm. That was off-and-on, and was there again this morning, but sitting up seem to make it dissipate with some short time, and right now she does not have the chest discomfort, just some mild left arm discomfort. No pleuritic nature to her discomfort. No dyspnea, palpitations, syncope, diaphoresis. She has not tried taking any medication to see if it helped, but exertion did not bring any of it on or make anything worse. She did take 2 baby aspirin today before coming here out of concern maybe this was her heart. She does have a PCP and she sees her fairly regularly although it has been 2 to 3 years since her last visit but when she has had her blood pressure and cholesterol checked, she has required no medications or prescriptions. [facility] Medical History no medical history no medical history Home Medications ?Medication ?Instructions ?Recorded ?Last Taken ?Type pantoprazole 20 mg tablet,delayed 20 mg PO DAILY #14 tabs 09/02/24 Unknown Rx release Allergy/AdvReac Type Severity Reaction Status Date / Time Penicillins (PCN) Allergy Rash Verified 09/02/24 08:24 omeprazole (From Prilosec) AdvReac Nausea/Vom/ Verified 09/02/24 08:24 Diarrhea omeprazole magnesium (From AdvReac Nausea/Vom/ Verified 09/02/24 08:24 Prilosec) Diarrhea Family History Mother Hypertension Thyroid disorder Arthritis Father , cancer Cancer liver, esophageal Surgical History no surgical history Social History Smoking Status: Current every day smoker tobacco type: cigarettes ROS ROS ED Constitutional Constitutional ED: Denies chills or fever(s) Eyes Eyes: Denies change in vision or diplopia ENT ENT ED: Denies rhinorrhea or sore throat Cardiovascular Cardiovascular: Reports as per HPI, chest pain and radiating jaw, neck or arm pain; Denies palpitations Respiratory/Chest Respiratory/Chest: Denies cough or dyspnea Gastrointestinal Gastrointestinal: Reports abdominal pain; Denies diarrhea, nausea or vomiting Genitourinary Genitourinary ED: Denies dysuria or hematuria Musculoskeletal Musculoskeletal: Denies back pain or neck pain Integumentary Denies abscess or rash Neurologic Neurologic: Denies headache(s), paresthesias or weakness Psychiatric Psychiatric: Denies anxiety or suicidal thoughts EXAM Physical Exam Const Vital Signs: 09/02/24 08:25 09/02/24 09:14 09/02/24 09:14 Temperature 97.6 F L Temperature Source Temporal Pulse Rate 91 Respiratory Rate 16 Respiratory Effort Normal Non-Labored Respiratory Pattern Normal Blood Pressure 206/107 H Blood Pressure Mean 140 Pulse Ox 100 98 Oxygen Delivery Method Room Air Room Air 09/02/24 13:00 Temperature Temperature Source Pulse Rate 83 Respiratory Rate 16 Respiratory Effort Respiratory Pattern Blood Pressure 206/103 H Blood Pressure Mean 137 Pulse Ox 97 Oxygen Delivery Method Room Air Positive well nourished and well developed General Appearance ED: well developed and NAD HEENT Reports moist mucous membranes normocephalic and atraumatic Eyes PERRL and EOMs intact bilaterally Neck full ROM and supple Chest Wall inspection of chest normal and palpation of chest normal Resp normal respiratory effort and clear to auscultation bilaterally Cardio regular rate, regular rhythm and no murmurs Rate: Negative for tachycardic Peripheral Pulses: pulses 2+ throughout GI non-distended GI Narrative: Very mild subjective tenderness left upper quadrant no pulsatile mass palpable. Auscultation: normoactive bowel sounds Palpation: soft Back/Spine no CVA tenderness General Back: other FROM Extremity normal to inspection General Extremety ED: Negative for edema, pulses abnormal or tenderness General Extremity: Negative for edema or pulses abnormal Neuro oriented x3, CN's II-XII intact bilaterally and no sensory deficits noted Sensorium / Orientation: awake and alert Motor Exam: strength 5/5 throughout Skin no rashes or lesions noted and no wounds Heart Score History: Moderately Suspicious ECG: Normal Age: >45 - <65 years Risk Factors: 1 or 2 Risk Factors (Smoking) Troponin: </= Normal Limit Score: 3 MDM MDM MDM Narrative Medical decision making narrative: Patient's triage blood pressure very high 206/107, but she feels relatively well right now and states that she is nervous about being here and thinks that is why her blood pressure is up which certainly may be the case. We will trend that. Her EKG is reassuringly normal, but as the patient discussed she is not having the heaviness right now. She will need 2 troponin measurements at least, and we will start by giving her a GI cocktail since the history could also be consistent with GI etiologies. Patient states that the GI cocktail helped her symptoms immediately. She had 2 sequential troponin measurements 2 hours apart that are negative and actually decreasing in their actual measurements. Chest x-ray 2 views of my interpretation is normal. Her labs are otherwise unremarkable. However blood pressure remained high, and again she is relatively asymptomatic with this. I gave her a dose of clonidine orally here because it is 206/103, but we do not know the trend of her blood pressure, and for now instead of starting her on a chronic medication, I recommend checking it periodically at home when she is feeling well, and following up with her doctor soon as possible. She comfortable with that plan we discussed reasons to return and we are going to put her on pantoprazole daily for 2 weeks, she prefers the lowest dose because she is sensitive to medications. Lab Data Attestation: I reviewed the patient's lab results. Labs: Laboratory Results - last 24 hr 09/02/24 09/02/24 09:08 12:18 WBC 7.4 RBC 4.77 Hgb 15.8 H Hct 45.9 MCV 96.2 MCH 33.1 H MCHC 34.4 RDW Std Deviation 46.1 H RDW Coeff of Nikko 12.8 Plt Count 221 MPV 10.0 Immature Gran % (Auto) 0.500 Neut % (Auto) 79.2 H Lymph % (Auto) 12.2 L [place] % (Auto) 6.6 Eos % (Auto) 0.4 Baso % (Auto) 1.1 H Absolute Neuts (auto) 5.8 Absolute Lymphs (auto) 0.90 Nucleated RBC % 0 Sodium 137 Potassium 3.7 Chloride 100 Carbon Dioxide 22.4 Anion Gap 14 BUN 10 Creatinine 0.64 L Estim Creat Clear Calc 89.35 Est GFR (MDRD) Non-Af 102 BUN/Creatinine Ratio 16.1 Glucose 106 H Calcium 9.9 Troponin T High Sens 10 Troponin T Hi Sens 2 Hr 9 Radiography Diagnostic Testing: Clinical Impression(s) from Imaging Studies Chest X-Ray 09/02/24 09:25 IMPRESSION: No acute cardiopulmonary process. Reading Location: [facility] Rhythm Strip Rhythm Strip: Sinus Rhythm Rate: 70 Ectopy: None EKG Initial EKG: Attestation: I personally reviewed and interpreted this EKG as follows: Interpretation: Sinus Rhythm and No Acute Injury Pattern Comments: Nml axis & intervals; nml EKG Discharge Plan Triage Chief Complaint: Chest Pain ED Provider: Brigido Knapp Dx/Rx/DC Orders Clinical Impression: Chest pain, unspecified, Acute epigastric pain, Episode of hypertension Instructions: ED GERD (Adult), ED Hypertension, To Be Confirmed Prescriptions: New pantoprazole 20 mg tablet,delayed release (DR/EC) 20 mg PO DAILY Qty: 14 0RF Primary Care Provider: Sara Swanson Referrals: Sara Swanson MD [Primary Care Provider] - As soon as possible Print Language: Macedonian Disposition Disposition: Home, Self Care
[2024-09-02] MEDS: Lidocaine 2% Viscous15 ML UDC 15 ML PO (09:12)
[2024-09-02] MEDS: Mag Hydrox/Al Hydrox/Simeth 30 ML UDC PO (09:12)
[2024-09-02 09:14] VITALS: O2SAT 98
[2024-09-02 09:18] LABS: Absolute Neutrophil Count 5.8 X10^3/uL (2.0-7.7); Basophil# 0.08 X10^3/uL; Basophil% 1.1 % (0-1); Eosinophil# 0.03 X10^3/uL; Eosinophils% 0.4 % (0-5); Hematocrit 45.9 % (37-47); Hemoglobin 15.8 g/dL (12.0-15.0); Lymphocyte % 12.2 % (19-41); Mean Corp Hgb Conc 34.4 g/dL (32-36); Mean Corpuscular Hgb 33.1 pg (27.0-32.0); Mean Corpuscular Volume 96.2 fL (81-99); Monocyte# 0.49 X10^3/uL; Monocyte% 6.6 % (0-10); NRBC Flagged by Analyzer 0 % (0-5); Neutrophil # 5.83 X10^3/uL (2.7-7.7); Neutrophil % 79.2 % (47-70); Platelet Count 221 K/mm3 (150-450); RBC Distribution Width CV 12.8 % (11.6-14.6); RBC Distribution Width SD 46.1 fl (35.1-43.9); Red Blood Count 4.77 M/mm3 (4.2-5.4); White Blood Count 7.4 K/mm3 (4.4-11.0)
--- NOTE | 2024-09-02 09:25 | RAD_ITS ---
EXAM: XR Chest, 2 Views CLINICAL INDICATION: CHEST PAIN TECHNIQUE: Frontal and lateral views of the chest. COMPARISON: No relevant prior studies available. FINDINGS: LUNGS AND PLEURAL SPACES: Unremarkable. No consolidation. No pneumothorax. HEART: Unremarkable. No cardiomegaly. MEDIASTINUM: Unremarkable. Normal mediastinal contour. BONES/JOINTS: Unremarkable. No acute fracture. RAD/Chest PA and Lateral IMPRESSION: No acute cardiopulmonary process. Reading Location: [facility]
[2024-09-02 09:40] LABS: Anion Gap 14 (5-15); BUN 10 mg/dL (4-19); BUN/Creat Ratio 16.1 RATIO (10-20); Calcium,Total 9.9 mg/dL (7.6-11.0); Carbon Dioxide 22.4 mmol/L (21.0-32.0); Chloride 100 mmol/L (98-108); Creatinine, Serum 0.64 mg/dL (0.70-1.20); EST Glomerular Filtration Rate 102 (>60); Estimated Creatinine Clearance 89.35 ml/min (50-250); Glucose 106 mg/dL (70-99); Potassium 3.7 mmol/L (3.3-5.1); Sodium Level 137 mmol/L (133-145); Troponin T High Sensitivity 10 ng/L (<=14)
[2024-09-02 12:56] LABS: Troponin T High Sens 2 HR 9 ng/L (<=14)
[2024-09-02 13:00] VITALS: BP 206/103; PULSE 83; RESP 16; O2SAT 97
[2024-09-02 13:38] VITALS: BP 198/100; PULSE 89; RESP 16; TEMP 36.3; O2SAT 98
[2024-09-02] MEDS: cloNIDine HCl 0.2 MG Tablet PO (13:38)
--- NOTE | 2024-09-02 13:39 | ED.RN ---
PT EDUCATED ON RISK WITH BP BEING ELEVATED. PT ADVISED TO TAKE MULTIPLE READINGS AT HOME AND FOLLOW UP WITH PCP, TAKE LOG OF BP READINGS WITH HER FOR THE DR TO SEE THE TREND. PT GIVEB PO CATAPRES BEFORE D/C TODAY. PT DENIES H/A OR ANY SX
== END 2024-09-02 13:41 | disposition home or self-care (01) ==
PROVIDERS: Emergency Provider Emergency Medicine; PCP Family Medicine; Visit Provider Emergency Medicine
DX: R07.9 Chest pain, unspecified (principal); R10.13 Epigastric pain; I10 Essential (primary) hypertension; F17.210 Nicotine dependence, cigarettes, uncomplicated
CPT/HCPCS: 71046; 80048; 84484; 85025; 93005; 99284; A4216

== ENCOUNTER → 2024-11-10 | Outpatient (CLI) | payer OTHER, SELFPAY ==
[2024-11-10 10:41] LABS: Absolute Lymphocyte Count 1.36 X10^3/uL (0.83-4.51); Absolute Neutrophil Count 5.4 X10^3/uL (2.0-7.7); Basophil# 0.07 X10^3/uL; Basophil% 0.9 % (0-1); Eosinophils% 1.3 % (0-5); Hemoglobin 15.5 g/dL (12.0-15.0); Lymphocyte # 1.36 X10^3/ul (0.83-4.51); Lymphocyte % 17.6 % (19-41); Mean Corp Hgb Conc 35.2 g/dL (32-36); Mean Corpuscular Hgb 33.8 pg (27.0-32.0); Mean Corpuscular Volume 95.9 fL (81-99); Mean Platelet Vol. 10.9 fl (6.2-12.0); Monocyte# 0.74 X10^3/uL; Monocyte% 9.6 % (0-10); NRBC Flagged by Analyzer 0 % (0-5); Neutrophil % 70.1 % (47-70); Platelet Count 252 K/mm3 (150-450); RBC Distribution Width CV 13.2 % (11.6-14.6); RBC Distribution Width SD 47.3 fl (35.1-43.9); Red Blood Count 4.59 M/mm3 (4.2-5.4); White Blood Count 7.7 K/mm3 (4.4-11.0)
[2024-11-10 11:38] LABS: ALB/GLOB Ratio 1.7 RATIO (0.9-2.4); AST(SGOT) 42 U/L (<=31); Alanine Aminotransfer ALT/SGPT 31 U/L (<=34); Albumin, Serum 4.8 g/dL (3.5-5.0); Alkaline Phosphatase 89 U/L (35-104); Anion Gap 16 (5-15); BUN 9 mg/dL (4-19); BUN/Creat Ratio 15.9 RATIO (10-20); Carbon Dioxide 20.3 mmol/L (21.0-32.0); Chloride 99 mmol/L (98-108); Cholesterol 253 mg/dL (<=200); Creatinine, Serum 0.59 mg/dL (0.70-1.20); EST Glomerular Filtration Rate 104 (>60); Globulin 2.9 g/dL (2.2-4.2); Glucose 90 mg/dL (70-99); High Density Lipoprotein 98 mg/dL; Low Density Lipoprotein Calc. 140 mg/dL; Potassium 4.5 mmol/L (3.3-5.1); Protein, Total 7.7 g/dL (5.9-8.4); Sodium Level 136 mmol/L (133-145); Triglycerides 76 mg/dL; Very Low Density Lipoprotein 15 mg/dL (5-40); cholesterol:hdl ratio screen 2.59
[2024-11-15 22:06] LABS: Age Gdln ACOG Testing 30-65 (.); HPV APTIMA, High Risk Positive (Negative); HPV Genotype 16, Aptima Negative (Negative); HPV Genotype 18,45 Aptima Positive (Negative)
== END | disposition home or self-care (01) ==
PROVIDERS: PCP Family Medicine; Referring Provider Family Medicine; Visit Provider Family Medicine
DX: Z01.419 Encounter for gynecological examination (general) (routine) without abnormal findings (principal); Z12.4 Encounter for screening for malignant neoplasm of cervix; I10 Essential (primary) hypertension; R74.8 Abnormal levels of other serum enzymes
CPT/HCPCS: 36415; 80053; 80061; 85025; 88175; G0145

== ENCOUNTER → 2024-11-23 | Outpatient (CLI) | payer OTHER, SELFPAY ==
--- NOTE | 2024-11-23 07:42 | BI_ITS ---
EXAM: SCRN MAMM (CAD)W/JD BILAT 11/23/2024 CLINICAL HISTORY: F, Age 59 y/o , SCREENING TECHNIQUE: Bilateral screening digital breast tomosynthesis with 2D and 3D images. Computer aided detection. COMPARISON: Prior exam(s) dated 06/13/2021, 08/30/2018. FINDINGS: TISSUE DENSITY: The breast tissue is heterogenously dense, which may obscure small masses. The mammogram demonstrates that the patient has dense breasts. Supplemental screening with whole breast ultrasound or MRI may be considered for further evaluation. Bilateral Breast Mammographic Findings: No significant masses, calcifications or other abnormalities are identified. BI/SCRN MAMM (CAD)W/JD BILAT IMPRESSION: Right Breast: BIRADS 1 NEGATIVE. Left Breast: BIRADS 1 NEGATIVE. OVERALL FINAL ASSESSMENT: BIRADS 1 NEGATIVE. RECOMMENDATION: Routine annual follow-up in 1 Year A letter with findings and recommendations will be mailed to the patient. Reading Location: [id number]
--- OUTSIDE RECORDS SUMMARY | 2024-11-23 08:00 | XMS RPT_ITS | CCD ---
Author Organization [facility] Care Team Providers Care Lens Grinder Name Role Phone Sara Swanson Primary Care Provider SARA SWANSON Primary Care Unavailable SARA SWANSON Primary Care Unavailable SARA SWANSON Primary Care Unavailable Sky MCDONOUGH, Dr. Ruiz Primary Care Provider Ra MCDONOUGH, Dr. Fofana Emergency Provider Ra MCDONOUGH, Dr. Fofana Attending Provider Sky MCDONOUGH, Dr. Ruiz Attending Provider Dr. Sara Swanson MD Referring Provider [phone] Sara Swanson Primary Care Unavailable Sara Swanson Attending Unavailable Sara Swanson Referring Unavailable Sara Swanson Primary Care Unavailable Brigido Knapp Attending Unavailable Sara Swanson Primary Care Unavailable Sara Swanson Attending Unavailable Sara Swanson Referring Unavailable Allergies Allergy Classification Reported Allergen(s) Allergy Type Date of Onset Reaction(s) Facility (4 sources) Amoxicillin; Translations: [[facility]OXICILLIN] [facility] [address] [facility] Omeprazole Drug Allergy [address] [facility] (2 sources) Omeprazole Drug Allergy 5 Nausea/Vom/Diar anju [facility] (2 sources) Penicillins Allergy to substance 5 Rash [facility] (1 source) Omeprazole Drug Allergy 5 [facility] (1 source) Omeprazole Drug Allergy 5 [facility] (1 source) Penicillins Drug allergy (disorder) [facility] Medications Current Medications Medication Drug Class(es) Dates Sig (Normalized) Sig (Original) ofloxacin 3 mg/ml otic solution (1 source) Quinolone Antimicrobial Start: 04-28-2022 End: 05-03-2022 ofloxacin (FLOXIN) 0.3 % otic solution Indications: Perforated tympanic membrane, right Use 5 Drops in the right ear twice daily for 5 days. 5 mL 0 04/28/2022 05/03/2022 Active Comment on above: Use 5 Drops in the r ight ear twice daily for 5 days. pantoprazole 20 mg delayed release oral tablet (2 sources) Proton Pump Inhibitor Start: 09-02-2024 take 1 tablet by mouth once daily Pantoprazole 20 mg tablet,delayed release (DR/EC) Active 20 mg PO DAILY September 02, 2024 12:00am Completed/Discontinued Medications Medication Drug Class(es) Dates Sig (Normalized) Sig (Original) [id number] 200 actuat albuterol 0.09 mg/actuat metered dose inhaler (2 sources) beta2-Adrenergic Agonist Start: 08-01-2020 End: 05-06-2021 Albuterol Sulfate 1 INHALER inhaler Discontinued 1 - 2 NMA INHALATION EVERY 4 HOURS NEEDED as needed for Wheezing August 01, 2020 1:00am May 06, 2021 9:33am azithromycin 250 mg oral tablet (3 sources) Macrolide Antimicrobial Start: 12-03-2017 azithromycin (ZITHROMAX) 250 mg tablet Take 1 tablet by mouth once daily. Instructions: Take 2 tablets today then one tablet daily for 4 days. 1 Package 0 12/03/2017 Active Comment on above: Take 1 tablet by toni once daily. Instructions: Take 2 tablets today then one tablet daily for 4 days. benzonatate 100 mg oral capsule (2 sources) Non-narcotic Antitussive Start: 08-01-2020 End: 02-20-2021 take 2 capsules by mouth three times daily as needed for cough Benzonatate 100 MG capsule Discontinued 200 mg PO 3 TIMES DAILY NEEDED as needed for Cough August 01, 2020 1:00am February 20, 2021 11:08am fluticasone propionate 0.05 mg/actuat metered dose nasal spray (3 sources) Corticosteroid Start: 12-02-2017 take 2 spray(s) by mouth once daily fluticasone (FLONASE) 50 mcg/actuation nasal spray Use 2 Sprays in each nostril once daily. Rinse mouth after use. 1 Bottle 0 12/02/2017 Active Comment on above: Use 2 Sprays in each nostril once daily. Rinse mouth after use. LORazepam 1 mg oral tablet (5 sources) Benzodiazepine Start: 08-18-2014 End: 09-02-2024 take 1 tablet by mouth once daily as needed Lorazepam (Ativan) 1 mg tablet Discontinued 1 mg PO DAILY as needed February 20, 2021 12:00am September 02, 2024 9:17am Problems Active Problems Problem Classification Problem Date Documented Da te Episodic/Chronic Abdominal pain (4 sources) Epigastric pain; Translations: [Epigastric pain] 09-02-2024 Episodic Anxiety disorders (3 sources) Anxiety state; Translations: [Generalized anxiety disorder] Onset: 04-21-2011 04-21-2011 Chronic Essential hypertension (2 sources) Elevated blood pressure; Translations: [Essential (primary) hypertension] 09-02-2024 Chronic Menstrual disorders (3 sources) Irregular periods; Translations: [Irregular menstruation, unspecified] Onset: 04-21-2011 04-21-2011 Chronic Mood disorders (3 sources) Depressive disorder; Translations: [Other specified depressive episodes] Onset: 04-21-2011 04-21-2011 Chronic Nonspecific chest pain (5 sources) Tight chest; Translations: [Other chest pain] Onset: 09-08-2024 08-02-2020 Episodic Other gastrointestinal disorders (2 sources) Obstipation; Translations: [Constipation, unspecified] 01-26-2019 Episodic Other lower respiratory disease (2 sources) Cough; Translations: [Cough] 08-02-2020 Episodic Other nervous system disorders (2 sources) Tremor; Translations: [Tremor, unspecified] 05-06-2021 Episodic Other screening for suspected conditions (not mental disorders or infectious disease) (1 source) Encounter for screening mammogram for malignant neoplasm of breast; Translations: [Encounter for screening mammogram for malignant neoplasm of breast] Onset: 11-21-2024 Episodic Other upper respiratory infections (2 sources) Sore throat symptom; Translations: [Acute pharyngitis, unspecified] 12-23-2022 Episodic Otitis media and related conditions (1 source) Perforation of right tympanic membrane; Translations: [Unspecified perforation of tympanic membrane, right ear] Episodic Residual codes; unclassified (2 sources) Tobacco user; Translations: [Tobacco use] 08-02-2020 Episodic Skin and subcutaneous tissue infections (1 source) Infection of finger; Translations: [Local infection of the skin and subcutaneous tissue, unspecified] Episodic Spondylosis; intervertebral disc disorders; other back problems (2 sources) Degeneration of intervertebral disc; Translations: [Degeneration of intervertebral disc, site unspecified] 03-25-2021 Chronic Unclassified (2 sources) No history of clinical finding in subject 01-25-2019 Past or Other Problems Problem Classification Problem Date Documented Da te Episodic/Chronic Other upper respiratory disease (3 sources) Hoarse; Translations: [Dysphonia] Onset: 09-14-2014 09-14-2014 Episodic Results Test Name Value Interpretation Reference Range Facility PAP IG w/Reflex HPV GDLNon 0 11-15-2024 ADEQ Comment Normal . [facility] Comment on above: Order Comment: Speci robb Comment: [id number] Specimen Comment: No. of containers..01 ThinPrep Vial Result Comment: Sati sfactory for evaluation. Endocervical and/or squamous metaplastic cells (endocervical component) are present. Performed By: #### L 7400.0290 #### [facility] [address] [place], [place], [id number] Age Gdln ACOG T 30-65 Normal . [facility] Comment on above: Order Comment: Rolando zamudio Comment: [id number] Specimen Comment: No. of containers..01 ThinPrep Vial Performed By: #### L 7400.0290 #### [facility] [address] [place], [place], [id number] COMM . Normal . [facility] Comment on above: Order Comment: Rolando zamudio Comment: [id number] Specimen Comment: No. of containers..01 ThinPrep Vial Performed By: #### L 7400.0290 #### [facility] [address] [place], [place], [id number] COMMENT Comment Normal . [facility] Comment on above: Order Comment: Speci men Comment: [id number] Specimen Comment: No. of containers..01 ThinPrep Vial Result Comment: This liquid based ThinPrep(R) pap test was screened with the use of an image guided system. Performed By: #### L 7400.0290 #### [facility] [address] [place], [place], [address] DIAG Comment Normal . [facility] Comment on above: Order Comment: Speci men Comment: [id number] Specimen Comment: No. of containers..01 ThinPrep Vial Result Comment: NEGA TIVE FOR INTRAEPITHELIAL LESION OR MALIGNANCY. Performed By: #### L 7400.0290 #### [facility] [address] [place], [place], [id number] HPV APTIMA, HR Positive Abnormal Negative [facility] Comment on above: Order Comment: Speci men Comment: [id number] Specimen Comment: No. of containers..01 ThinPrep Vial Result Comment: This nucleic acid amplification test detects fourteen high- risk HPV types (16,18,31,33,35,39,45,51,52,56,58,59,66,68) without differentiation. Performed By: #### L 7400.0290 #### [facility] [address] [place], [place], [address] HPV Kellen 18,45 Positive Abnormal Negative [facility] Comment on above: Order Comment: Speci men Comment: [id number] Specimen Comment: No. of containers..01 ThinPrep Vial Result Comment: Perf ormed at: =[facility] [id number] Application Dba: Bobbi Cosme MD, Phone: [phone] Performed at: [facility] [id number] Application Dba: Bobbi Cosme MD, Phone: [phone] Performed By: #### L 7400.0290 #### [facility] [address] [place], [address] HPV Kellen Rfx Comment Normal . [facility] Comment on above: Order Comment: Speci men Comment: [id number] Specimen Comment: No. of containers..01 ThinPrep Vial Result Comment: Erika garcia, see HPV Genotype results. Performed By: #### L 7400.0290 #### [facility] [address] [place], [address] HPV Genotype 16 Negative Normal Negative [facility] Comment on above: Order Comment: Speci men Comment: [id number] Specimen Comment: No. of containers..01 ThinPrep Vial Performed By: #### L 7400.0290 #### [facility] [address] [place], [address] PAPSMR Comment Normal . [facility] Comment on above: Order Comment: Speci men Comment: [id number] Specimen Comment: No. of containers..01 ThinPrep Vial Result Comment: The Pap smear is a screening test designed to aid in the detection of premalignant and malignant conditions of the uterine cervix. It is not a diagnostic procedure and should not be used as the sole means of detecting cervical cancer. Both false-positive and false-negative reports do occur. Performed By: #### L 7400.0290 #### [facility] [address] [place], [address] PERFORM Comment Normal . [facility] Comment on above: Order Comment: Speci men Comment: [id number] Specimen Comment: No. of containers..01 ThinPrep Vial Result Comment: Faviola Elizondo, Sales Merchandiser (ASCP) Performed By: #### L 7400.0290 #### [facility] [address] [place], [address] Absolute lymphocyte countOrd ered By: Sara Swanson on 11-10-2024 Lymphocytes Auto (Unsp spec) [#/Vol] 1.36 10*3/uL 0.83-4.51 [facility] Absolute neutrophil countOrd ered By: Sara Swanson on 11-10-2024 Neutrophils (Bld) [#/Vol] 5.4 10*3/uL 2.0-7.7 [facility] Anion gap in Serum or Plasma Ordered By: Sara Swanson on 11-10-2024 Anion gap [Moles/Vol] 16 mmol/L High 5-15 [facility] Automated lymphocyte count a s percentage of total leukocytesOrdered By: Sara Swanson on 11-10-2024 Lymphocytes/100 WBC Auto (Unsp spec) 17.6 % Low 19-41 [facility] BUN/creatinine ratioOrdered By: Sara Codevon on 11-10-2024 Urea nitrogen/Creatinine [Mass ratio] 15.9 mg/mg 10-20 [facility] Basophil percentageOrdered B y: Sara Swanson on 11-10-2024 Basophils/100 WBC (Bld) 0.9 % 0-1 [facility] Bilirubin, totalOrdered By: Sara Swanson on 11-10-2024 Bilirubin [Mass/Vol] 0.70 mg/dL 0.00-1.30 [facility] CBC W/Diff, Automatedon 10-14 Absolute Lymph 1.36 X10 3/uL Normal 0.83-4.51 [facility] Comment on above: Performed By: #### L 100.0100, L500.4100, L500.4050 #### [facility] [address] [place], [address] Absolute Neut 5.4 X10 3/uL Normal 2.0-7.7 [facility] Comment on above: Performed By: #### L 100.0100, L500.4100, L500.4050 #### [facility] [address] [place], [address] Basophils/100 WBC (Bld) 0.9 % Normal 0-1 [facility] Comment on above: Performed By: #### L 100.0100, L500.4100, L500.4050 #### [facility] [address] [place], [address] Eosinophils/100 WBC (Bld) 1.3 % Normal 0-5 [facility] Comment on above: Performed By: #### L 100.0100, L500.4100, L500.4050 #### [facility] [address] [place], [address] Erythrocyte distribution width (RBC) [Ratio] 13.2 % Normal 11.6-14.6 [facility] Comment on above: Performed By: #### L 100.0100, L500.4100, L500.4050 #### [facility] [address] [place], [address] Hematocrit (Bld) [Volume fraction] 44.0 % Normal 37-47 [facility] Comment on above: Performed By: #### L 100.0100, L500.4100, L500.4050 #### [facility] [address] [place], [address] Hemoglobin (Bld) [Mass/Vol] 15.5 g/dL High 12.0-15.0 [facility] Comment on above: Performed By: #### L 100.0100, L500.4100, L500.4050 #### [facility] [address] [place], [address] IG% 0.500 Normal 0.0-0.9 [facility] Comment on above: Result Comment: IG% - Immature Granulocytes (promyelocytes, myelocytes and metamyelocytes) > 1% indicates that a LEFT SHIFT is Present. Performed By: #### L 100.0100, L500.4100, L500.4050 #### [facility] [address] [place], [address] Lymphocytes/100 WBC (Bld) 17.6 % Low 19-41 [facility] Comment on above: Performed By: #### L 100.0100, L500.4100, L500.4050 #### [facility] [address] [place], [address] MCH (RBC) [Entitic mass] 33.8 pg High 27.0-32.0 [facility] Comment on above: Performed By: #### L 100.0100, L500.4100, L500.4050 #### [facility] [address] [place], [address] MCHC (RBC) [Mass/Vol] 35.2 g/dL Normal 32-36 [facility] Comment on above: Performed By: #### L 100.0100, L500.4100, L500.4050 #### [facility] [address] [place], [address] MCV (RBC) [Entitic vol] 95.9 fL Normal 81-99 [facility] Comment on above: Performed By: #### L 100.0100, L500.4100, L500.4050 #### [facility] [address] [place], [address] Monocytes/100 WBC (Bld) 9.6 % Normal 0-10 [facility] Comment on above: Performed By: #### L 100.0100, L500.4100, L500.4050 #### [facility] [address] [place], [address] Neutrophils/100 WBC (Bld) 70.1 % High 47-70 [facility] Comment on above: Performed By: #### L 100.0100, L500.4100, L500.4050 #### [facility] [address] [place], [address] Nucleated RBC (Bld) [#/Vol] 0 10*3/uL Normal 0-5 [facility] Comment on above: Performed By: #### L 100.0100, L500.4100, L500.4050 #### [facility] [address] [place], [address] Platelet mean volume (Bld) [Entitic vol] 10.9 fL Normal 6.2-12.0 [facility] Comment on above: Performed By: #### L 100.0100, L500.4100, L500.4050 #### [facility] [address] [place], [address] Platelets (Bld) [#/Vol] 252 10*3/uL Normal 150-450 [facility] Comment on above: Performed By: #### L 100.0100, L500.4100, L500.4050 #### [facility] [address] [place], [address] RBC (Bld) [#/Vol] 4.59 10*6/uL Normal 4.2-5.4 [facility] Comment on above: Performed By: #### L 100.0100, L500.4100, L500.4050 #### [facility] [address] [place], [address] RDW SD 47.3 fl High 35.1-43.9 [facility] Comment on above: Performed By: #### L 100.0100, L500.4100, L500.4050 #### [facility] [address] [place], [address] WBC (Bld) [#/Vol] 7.7 10*3/uL Normal 4.4-11.0 [facility] Comment on above: Performed By: #### L 100.0100, L500.4100, L500.4050 #### [facility] [address] [place], [address] Calculated very low density lipoprotein (VLDL) cholesterol measurementOrdered By: Sara Swanson on 11-10-2024 Calculated very low density lipoprotein (VLDL) cholesterol measurement 15 mg/dL 5-40 [facility] Carbon dioxide, total [Moles /volume] in Central venous bloodOrdered By: Sara Swanson on 11-10-2024 CO2 [Moles/Vol] 20.3 mmol/L Low 21.0-32.0 [facility] Chloride assayOrdered By: Walter Swanson on 11-10-2024 Chloride [Moles/Vol] 99 mmol/L 98-108 [facility] Comprehensive Metabolic Prof ilon 11-10-2024 Albumin [Mass/Vol] 4.8 g/dL Normal 3.5-5.0 [facility] Comment on above: Performed By: #### L 100.0100, L500.4100, L500.4050 #### [facility] [address] [place], [address] Albumin/Globulin [Mass ratio] 1.7 {ratio} Normal 0.9-2.4 [facility] Comment on above: Performed By: #### L 100.0100, L500.4100, L500.4050 #### [facility] [address] [place], [address] ALK PHOS 89 U/L Normal 35-104 [facility] Comment on above: Performed By: #### L 100.0100, L500.4100, L500.4050 #### [facility] [address] [place], [address] ALT [Catalytic activity/Vol] 31 U/L Normal <=34 [facility] Comment on above: Performed By: #### L 100.0100, L500.4100, L500.4050 #### [facility] [address] [place], [address] AST [Catalytic activity/Vol] 42 U/L High <=31 [facility] Comment on above: Performed By: #### L 100.0100, L500.4100, L500.4050 #### [facility] [address] [place], [address] Bilirubin [Mass/Vol] 0.70 mg/dL Normal 0.00-1.30 [facility] Comment on above: Performed By: #### L 100.0100, L500.4100, L500.4050 #### [facility] [address] [place], [address] BUN/CRE 15.9 RATIO Normal 10-20 [facility] Comment on above: Performed By: #### L 100.0100, L500.4100, L500.4050 #### [facility] [address] [place], [address] Calcium [Mass/Vol] 10.0 mg/dL Normal 7.6-11.0 [facility] Comment on above: Performed By: #### L 100.0100, L500.4100, L500.4050 #### [facility] [address] [place], [address] Chloride [Moles/Vol] 99 mmol/L Normal 98-108 [facility] Comment on above: Performed By: #### L 100.0100, L500.4100, L500.4050 #### [facility] [address] [place], [address] CO2 [Moles/Vol] 20.3 mmol/L Low 21.0-32.0 [facility] Comment on above: Performed By: #### L 100.0100, L500.4100, L500.4050 #### [facility] [address] [place], [address] Creatinine [Mass/Vol] 0.59 mg/dL Low 0.70-1.20 [facility] Comment on above: Performed By: #### L 100.0100, L500.4100, L500.4050 #### [facility] [address] [place], [address] GAP 16 High 5-15 [facility] Comment on above: Performed By: #### L 100.0100, L500.4100, L500.4050 #### [facility] [address] [place], [address] GFR/1.73 sq M.predicted among non-blacks MDRD (S/P/Bld) [Vol rate/Area] 104 mL/min/{1.73_m2} Normal >60 [facility] Comment on above: Result Comment: mL/m in/1.73m2 CKD-EPI Creatinine Equation (2020) Performed By: #### L 100.0100, L500.4100, L500.4050 #### [facility] [address] [place], [address] Globulin (S) [Mass/Vol] 2.9 g/dL Normal 2.2-4.2 [facility] Comment on above: Performed By: #### L 100.0100, L500.4100, L500.4050 #### [facility] [address] [place], [address] Glucose [Mass/Vol] 90 mg/dL Normal 70-99 [facility] Comment on above: Performed By: #### L 100.0100, L500.4100, L500.4050 #### [facility] [address] [place], [address] Potassium [Moles/Vol] 4.5 mmol/L Normal 3.3-5.1 [facility] Comment on above: Performed By: #### L 100.0100, L500.4100, L500.4050 #### [facility] [address] [place], [address] Sodium [Moles/Vol] 136 mmol/L Normal 133-145 [facility] Comment on above: Performed By: #### L 100.0100, L500.4100, L500.4050 #### [facility] [address] [place], [address] T PROT 7.7 g/dL Normal 5.9-8.4 [facility] Comment on above: Performed By: #### L 100.0100, L500.4100, L500.4050 #### [facility] [address] [place], [address] Urea nitrogen [Mass/Vol] 9 mg/dL Normal 4-19 [facility] Comment on above: Performed By: #### L 100.0100, L500.4100, L500.4050 #### [facility] [address] [place], [address] Eosinophil percentageOrdered By: Sara Swanson on 11-10-2024 Eosinophils/100 WBC (Bld) 1.3 % 0-5 [facility] Erythrocyte distribution wid th ratioOrdered By: Sara Swanson on 11-10-2024 Erythrocyte distribution width (RBC) [Ratio] 13.2 % 11.6-14.6 [facility] Erythrocyte distribution wid th standard deviationOrdered By: Sara Swanson on 11-10-2024 Erythrocyte distribution width (RBC) [Ratio] 47.3 fl High 35.1-43.9 [facility] Glomerular filtration rate ( GFR) estimation/1.73 sq m using serum, plasma, or whole bOrdered By: Sara Swanson on 11-10-2024 GFR/1.73 sq M.predicted among non-blacks MDRD (S/P/Bld) [Vol rate/Area] 104 mL/min/{1.73_m2} >60 [facility] Comment on above: mL/min/1.73m2 CKD-EP I Creatinine Equation (2020) Hematocrit Auto (Bld) [Volum e fraction]Ordered By: Sara Swanson on 05-29-2025 Hematocrit (Bld) [Volume fraction] 44.0 % 37-47 [facility] Hemoglobin measurementOrdere d By: Sara Swanson on 11-10-2024 Hemoglobin (Bld) [Mass/Vol] 15.5 g/dL High 12.0-15.0 [facility] Immature granulocytes/100 WB C Auto (Bld)Ordered By: Sara Swanson on 11-10-2024 Immature granulocytes/100 WBC (Bld) 0.500 % 0.0-0.9 [facility] Comment on above: IG% - Immature Granu locytes (promyelocytes, myelocytes and metamyelocytes) > 1% indicates that a LEFT SHIFT is Present. LDL calc ser/plasOrdered By: Sara Swanson on 11-10-2024 Cholesterol in LDL [Mass/Vol] 140 mg/dL [facility] Comment on above: Bpppietetl=989-355 m g/dL & Higher Jgvf=037 mg/dL or greater Laboratory - Chemistry and C hemistry - challengeOrdered By: Sara Swanson on 11-10-2024 AST [Catalytic activity/Vol] 42 U/L High <32 [facility] Lipid Profileon 11-10-2024 CHOL:HDL 2.59 Normal [facility] Comment on above: Performed By: #### L 500.2500, L501.4021, L100.0100 #### [facility] [address] [place], [address] Cholesterol [Mass/Vol] 253 mg/dL High <=200 [facility] Comment on above: Result Comment: Chol esterol level, Desirable <200 mg/dL Borderline high cholesterol 200-239 mg/dL High cholesterol >=240 mg/dL Recommendations of the NCEP Adult Treatment Panel for the following risk-cutoff thresholds for the [place] population. Performed By: #### L 500.2500, L501.4021, L100.0100 #### [facility] [address] [place], [address] Cholesterol in HDL [Mass/Vol] 98 mg/dL Normal [facility] Comment on above: Result Comment: Angelina onal Cholesterol Education Program (NCEP) guidelines: <40 mg/dL: Low HDL-cholesterol (major risk factor for CHD) >= 60 mg/dL: High HDL-cholesterol (negative risk factor for CHD) HDL-cholesterol is affected by a number of factors, e.g. smoking, exercise, hormones, sex and age. Performed By: #### L 500.2500, L501.4021, L100.0100 #### [facility] [address] [place], [address] Cholesterol in LDL [Mass/Vol] 140 mg/dL Normal [facility] Comment on above: Result Comment: Bord lfivrm=702-406 mg/dL Higher Sdrz=432 mg/dL or greater Performed By: #### L 500.2500, L501.4021, L100.0100 #### [facility] [address] [place], [address] Cholesterol in VLDL [Mass/Vol] 15 mg/dL Normal 5-40 [facility] Comment on above: Performed By: #### L 500.2500, L501.4021, L100.0100 #### [facility] [address] [place], [address] Triglyceride [Mass/Vol] 76 mg/dL Normal [facility] Comment on above: Result Comment: The drugs N-Acetylcysteine and Metamizole may falsely depress this assay. Normal range: <150 mg/dL Borderline High: 150-199 mg/dL High: 200-499 mg/dL Very High: >500 mg/dL Performed By: #### L 500.2500, L501.4021, L100.0100 #### [facility] [address] [place], [address] MCV (mean corpuscular volume ) determinationOrdered By: Sara Swanson on 11-10-2024 MCV (RBC) [Entitic vol] 95.9 fL 81-99 [facility] Mean corpuscular hemoglobin (MCH) determinationOrdered By: Sara Swanson on 11-10-2024 MCH (RBC) [Entitic mass] 33.8 pg High 27.0-32.0 [facility] Mean corpuscular hemoglobin concentration (MCHC) determinationOrdered By: Sara Swanson on 11-10-2024 MCHC (RBC) [Mass/Vol] 35.2 g/dL 32-36 [facility] Mean platelet volume determi nationOrdered By: Sara Swanson on 11-10-2024 Platelet mean volume (Bld) [Entitic vol] 10.9 fL 6.2-12.0 [facility] Monocyte percentageOrdered B y: Sara Swanson on 11-10-2024 Monocytes/100 WBC (Bld) 9.6 % 0-10 [facility] Neutrophil percentageOrdered By: Sara Swanson on 11-10-2024 Neutrophils/100 WBC (Bld) 70.1 % High 47-70 [facility] Nucleated red blood cell per centageOrdered By: Sara Swanson on 11-10-2024 Nucleated RBC/100 WBC (Bld) [Ratio] 0 % 0-5 [facility] Platelet countOrdered By: Walter Swanson on 11-10-2024 Platelets (Bld) [#/Vol] 252 10*3/uL 150-450 [facility] Potassium measurement (mass/ volume)Ordered By: Sara Swanson on 11-10-2024 Potassium (Unsp spec) [Mass/Vol] 4.5 mmol/L 3.3-5.1 [facility] RBC Auto (Bld) [#/Vol]Ordere d By: Sara Swanosn on 11-10-2024 RBC (Bld) [#/Vol] 4.59 10*6/uL 4.2-5.4 [facility] Screening total cholesterol/ high density lipoprotein (HDL) cholesterol ratioOrdered By: Sara Swanson on 11-10-2024 Cholesterol.total/Cholest ralf in HDL [Mass ratio] 2.59 {ratio} [facility] Serum creatinine measurement (mass/volume)Ordered By: Sara Swanson on 11-10-2024 Creatinine [Mass/Vol] 0.59 mg/dL Low 0.70-1.20 [facility] Serum globulin measurementOr dered By: Sara Swanson on 11-10-2024 Globulin (S) [Mass/Vol] 2.9 g/dL 2.2-4.2 [facility] Serum glucose measurement (m ass/volume)Ordered By: Sara Swanson on 11-10-2024 Glucose [Mass/Vol] 90 mg/dL 70-99 [facility] Serum or plasma alanine house otransferase (ALT) measurementOrdered By: Sara Swanson on 11-10-2024 ALT [Catalytic activity/Vol] 31 U/L <35 [facility] Serum or plasma albumin rowena urement (mass/volume)Ordered By: Sara Swanson on 11-10-2024 Albumin [Mass/Vol] 4.8 g/dL 3.5-5.0 [facility] Serum or plasma albumin/glob ulin mass ratioOrdered By: Sara Swanson on 11-10-2024 Albumin/Globulin [Mass ratio] 1.7 {ratio} 0.9-2.4 [facility] Serum or plasma alkaline su sphatase measurementOrdered By: Sara Swanson on 11-10-2024 ALP [Catalytic activity/Vol] 89 U/L 35-104 [facility] Serum or plasma calcium rowena urement (mass/volume)Ordered By: Sara Swanson on 11-10-2024 Calcium [Mass/Vol] 10.0 mg/dL 7.6-11.0 [facility] Serum or plasma cholesterol in HDL measurement (mass/volume)Ordered By: Sara Swanson on 11-10-2024 Cholesterol in HDL [Mass/Vol] 98 mg/dL >40 [facility] Comment on above: National Cholesterol Education Program (NCEP) guidelines:<40 mg/dL: Low HDL-cholesterol (major risk factor for CHD)>= 60 mg/dL: High HDL-cholesterol (negative risk factor for CHD)HDL-cholesterol is affected by a number of factors, e.g. smoking, exercise, hormones, sex and age. Serum or plasma cholesterol measurement (mass/volume)Ordered By: Sara Swanson on 11-10-2024 Cholesterol [Mass/Vol] 253 mg/dL High <201 [facility] Comment on above: Cholesterol level, D esirable <200 mg/dLBorderline high cholesterol 200-239 mg/dLHigh cholesterol >=240 mg/dLRecommendations of the NCEP Adult Treatment Panel for the following risk-cutoff thresholds for the [place] population. Serum or plasma urea nitroge n measurement (mass/volume)Ordered By: Sara Swanson on 11-10-2024 Urea nitrogen [Mass/Vol] 9 mg/dL 4-19 [facility] Sodium levelOrdered By: Rui Swanson on 11-10-2024 Sodium [Moles/Vol] 136 mmol/L 133-145 [facility] Total proteinOrdered By: Evin Swanson on 11-10-2024 Protein [Mass/Vol] 7.7 g/dL 5.9-8.4 [facility] Triglycerides measurementOrd ered By: Sara Swanson on 11-10-2024 Triglyceride [Mass/Vol] 76 mg/dL <199 [facility] Comment on above: The drugs N-Acetylcy steine and Metamizole may falsely depress this assay. Normal range: <150 mg/dLBorderline High: 150-199 mg/dLHigh: 200-499 mg/dLVery High: >500 mg/dL White blood cell (WBC) count Ordered By: Sara Swanson on 11-10-2024 WBC (Bld) [#/Vol] 7.7 10*3/uL 4.4-11.0 [facility] 12 Lead EKGon 09-02-2024 12 Lead EKG [facility] Cardiovascular Services [address] [place] [address] 12 Lead EKG 09/02/24 0829 MR#: [id number] Acct: [id number] Name: DEWEY KIM Rep #: [id number] : 1965 59 From: Diego Sheth MD Attending Dr: Status: DEP ER Ordering Dr: Brigido Knapp MD Date: 09/02/24 Location: ED Sex: F C Admitted: Test Reason : CP Blood Pressure : */* mmHG Vent. Rate : 73 BPM Atrial Rate : 73 BPM P-R Int : 150 ms QRS Dur : 76 ms QT Int : 394 ms P-R-T Axes : -5 37 29 degrees QTcB Int : 434 ms Normal sinus rhythm with sinus arrhythmia Normal ECG Confirmed by JEM MCDONOUGH, DIEGO ([id number]), video effects editor CHERRIE ENRIQUEZ ([id number]) on 09/05/2024 7:29:31 AM Referred By: BB Confirmed By: DIEGO SHETH MD 09/05/24728 Diego Sheth MD CC: Dr. Brigido Knapp MD; Dr. Sara Swanson MD Signed Normal [facility] Absolute lymphocyte countOrd ered By: Brigido Knapp on 09-02-2024 Lymphocytes Auto (Unsp spec) [#/Vol] 0.90 10*3/uL 0.83-4.51 [facility] Absolute neutrophil countOrd ered By: Brigido Knapp on 09-02-2024 Neutrophils (Bld) [#/Vol] 5.8 10*3/uL 2.0-7.7 [facility] Anion gap in Serum or Plasma Ordered By: Brigido Knapp on 09-02-2024 Anion gap [Moles/Vol] 14 mmol/L 5- [facility] Automated lymphocyte count a s percentage of total leukocytesOrdered By: Brigido Knapp on 09-02-2024 Lymphocytes/100 WBC Auto (Unsp spec) 12.2 % Low 19-41 [facility] BUN/creatinine ratioOrdered By: Brigido Knapp on 09-02-2024 Urea nitrogen/Creatinine [Mass ratio] 16.1 mg/mg - [facility] Basic Metabolic Profile (BMP )on 09-02-2024 BUN/CRE 16.1 RATIO Normal 04-03 [facility] Comment on above: Performed By: #### L 500.2500, L501.4021, L100.0100 #### [facility] [address] [place], [address] Calcium [Mass/Vol] 9.9 mg/dL Normal 7.6-11.0 [facility] Comment on above: Performed By: #### L 500.2500, L501.4021, L100.0100 #### [facility] [address] [place], [address] Chloride [Moles/Vol] 100 mmol/L Normal 98-108 [facility] Comment on above: Performed By: #### L 500.2500, L501.4021, L100.0100 #### [facility] [address] [place], [address] CO2 [Moles/Vol] 22.4 mmol/L Normal 21.0-32.0 [facility] Comment on above: Performed By: #### L 500.2500, L501.4021, L100.0100 #### [facility] [address] [place], [address] Creatinine [Mass/Vol] 0.64 mg/dL Low 0.70-1.20 [facility] Comment on above: Performed By: #### L 500.2500, L501.4021, L100.0100 #### [facility] [address] [place], [address] ECRCL 89.35 ml/min Normal 50-250 [facility] Comment on above: Performed By: #### L 500.2500, L501.4021, L100.0100 #### [facility] [address] [place], [address] GAP 14 Normal 5-15 [facility] Comment on above: Performed By: #### L 500.2500, L501.4021, L100.0100 #### [facility] [address] [place], [address] GFR/1.73 sq M.predicted among non-blacks MDRD (S/P/Bld) [Vol rate/Area] 102 mL/min/{1.73_m2} Normal >60 [facility] Comment on above: Result Comment: mL/m in/1.73m2 CKD-EPI Creatinine Equation (2020) Performed By: #### L 500.2500, L501.4021, L100.0100 #### [facility] [address] [place], [address] Glucose [Mass/Vol] 106 mg/dL High 70-99 [facility] Comment on above: Performed By: #### L 500.2500, L501.4021, L100.0100 #### [facility] [address] [place], [address] Potassium [Moles/Vol] 3.7 mmol/L Normal 3.3-5.1 [facility] Comment on above: Performed By: #### L 500.2500, L501.4021, L100.0100 #### [facility] [address] [place], [address] Sodium [Moles/Vol] 137 mmol/L Normal 133-145 [facility] Comment on above: Performed By: #### L 500.2500, L501.4021, L100.0100 #### [facility] [address] [place], [address] Urea nitrogen [Mass/Vol] 10 mg/dL Normal 4-19 [facility] Comment on above: Performed By: #### L 500.2500, L501.4021, L100.0100 #### [facility] [address] [place], [address] Basophil percentageOrdered B y: Brigido Knapp on 09-02-2024 Basophils/100 WBC (Bld) 1.1 % High 0-1 [facility] CBC W/Diff, Automatedon 08-14 Absolute Lymph 0.90 X10 3/uL Normal 0.83-4.51 [facility] Comment on above: Performed By: #### L 500.2500, L501.4021, L100.0100 #### [facility] [address] [place], [address] Absolute Neut 5.8 X10 3/uL Normal 2.0-7.7 [facility] Comment on above: Performed By: #### L 500.2500, L501.4021, L100.0100 #### [facility] [address] [place], [address] Basophils/100 WBC (Bld) 1.1 % High 0-1 [facility] Comment on above: Performed By: #### L 500.2500, L501.4021, L100.0100 #### [facility] [address] [place], [address] Eosinophils/100 WBC (Bld) 0.4 % Normal 0-5 [facility] Comment on above: Performed By: #### L 500.2500, L501.4021, L100.0100 #### [facility] [address] [place], [address] Erythrocyte distribution width (RBC) [Ratio] 12.8 % Normal 11.6-14.6 [facility] Comment on above: Performed By: #### L 500.2500, L501.4021, L100.0100 #### [facility] [address] [place], [address] Hematocrit (Bld) [Volume fraction] 45.9 % Normal 37-47 [facility] Comment on above: Performed By: #### L 500.2500, L501.4021, L100.0100 #### [facility] [address] [place], [address] Hemoglobin (Bld) [Mass/Vol] 15.8 g/dL High 12.0-15.0 [facility] Comment on above: Performed By: #### L 500.2500, L501.4021, L100.0100 #### [facility] [address] [place], [address] IG% 0.500 Normal 0.0-0.9 [facility] Comment on above: Result Comment: IG% - Immature Granulocytes (promyelocytes, myelocytes and metamyelocytes) > 1% indicates that a LEFT SHIFT is Present. Performed By: #### L 500.2500, L501.4021, L100.0100 #### [facility] [address] [place], [address] Lymphocytes/100 WBC (Bld) 12.2 % Low 19-41 [facility] Comment on above: Performed By: #### L 500.2500, L501.4021, L100.0100 #### [facility] [address] [place], [address] MCH (RBC) [Entitic mass] 33.1 pg High 27.0-32.0 [facility] Comment on above: Performed By: #### L 500.2500, L501.4021, L100.0100 #### [facility] [address] [place], [address] MCHC (RBC) [Mass/Vol] 34.4 g/dL Normal 32-36 [facility] Comment on above: Performed By: #### L 500.2500, L501.4021, L100.0100 #### [facility] [address] [place], [address] MCV (RBC) [Entitic vol] 96.2 fL Normal 81-99 [facility] Comment on above: Performed By: #### L 500.2500, L501.4021, L100.0100 #### [facility] [address] [place], [address] Monocytes/100 WBC (Bld) 6.6 % Normal 0-10 [facility] Comment on above: Performed By: #### L 500.2500, L501.4021, L100.0100 #### [facility] [address] [place], [address] Neutrophils/100 WBC (Bld) 79.2 % High 47-70 [facility] Comment on above: Performed By: #### L 500.2500, L501.4021, L100.0100 #### [facility] [address] [place], [address] Nucleated RBC (Bld) [#/Vol] 0 10*3/uL Normal 0-5 [facility] Comment on above: Performed By: #### L 500.2500, L501.4021, L100.0100 #### [facility] [address] [place], [address] Platelet mean volume (Bld) [Entitic vol] 10.0 fL Normal 6.2-12.0 [facility] Comment on above: Performed By: #### L 500.2500, L501.4021, L100.0100 #### [facility] [address] [place], [address] Platelets (Bld) [#/Vol] 221 10*3/uL Normal 150-450 [facility] Comment on above: Performed By: #### L 500.2500, L501.4021, L100.0100 #### [facility] [address] [place], [address] RBC (Bld) [#/Vol] 4.77 10*6/uL Normal 4.2-5.4 [facility] Comment on above: Performed By: #### L 500.2500, L501.4021, L100.0100 #### [facility] [address] [place], [address] RDW SD 46.1 fl High 35.1-43.9 [facility] Comment on above: Performed By: #### L 500.2500, L501.4021, L100.0100 #### [facility] [address] [place], [address] WBC (Bld) [#/Vol] 7.4 10*3/uL Normal 4.4-11.0 [facility] Comment on above: Performed By: #### L 500.2500, L501.4021, L100.0100 #### [facility] [address] [place], [address] Carbon dioxide, total [Moles /volume] in Central venous bloodOrdered By: Brigido Knapp on 09-02-2024 CO2 [Moles/Vol] 22.4 mmol/L 21.0-32.0 [facility] Chest PA and Lateralon 09-02 Chest PA and Lateral [facility] Imaging Services [address], [place] [address] Chest PA and Lateral MR#: [id number] Acct: [id number] Name: DEWEY KIM Rep #: [id number] : 1965 F 59 From: Arnulfo Hoang MD PCP: Dr. Sara Swanson MD Status: REG ER Study: Chest PA and Lateral Date of Exam: 09/02/24 Exam# [id number] Ordering Dr: Brigido Knapp MD EXAM: XR Chest, 2 Views CLINICAL INDICATION: CHEST PAIN TECHNIQUE: Frontal and lateral views of the chest. COMPARISON: No relevant prior studies available. FINDINGS: LUNGS AND PLEURAL SPACES: Unremarkable. No consolidation. No pneumothorax. HEART: Unremarkable. No cardiomegaly. MEDIASTINUM: Unremarkable. Normal mediastinal contour. BONES/JOINTS: Unremarkable. No acute fracture. RAD/Chest PA and Lateral IMPRESSION: No acute cardiopulmonary process. Reading Location: [facility]- CC: Dr. Brigido Knapp MD; Dr. Sara Swanson MD Beet Topper: Signed Normal [facility] Chloride assayOrdered By: Robby Knapp on 09-02-2024 Chloride [Moles/Vol] 100 mmol/L 98-108 [facility] Emergency Department Summary on 09-02-2024 Emergency Department Summary [facility] Medical Records Department [address] [place] [address] Emergency Department Summary 09/02/24 MR#: [id number] Acct: [id number] Name: DEWEY KIM Rep #: [id number] : 1965 59 From: Brigido Knapp MD PCP: Dr. Sara Swanson MD Status:REG ER Location: ED HPI History of Present Illness Chief Complaint: Chest Pain Informant: patient Narrative Narrative: 59-year-old female presenting with chest pain. She states she has had what felt like indigestion off and on for the past week, but daily. She states she has been under quite a bit of stress lately, and her elderly mother is having health problems adding to that. She states last night when she laid down, she was having chest heaviness that was giving her discomfort in her left arm. That was off-and-on, and was there again this morning, but sitting up seem to make it dissipate with some short time, and right now she does not have the chest discomfort, just some mild left arm discomfort. No pleuritic nature to her discomfort. No dyspnea, palpitations, syncope, diaphoresis. She has not tried taking any medication to see if it helped, but exertion did not bring any of it on or make anything worse. She did take 2 baby aspirin today before coming here out of concern maybe this was her heart. She does have a PCP and she sees her fairly regularly although it has been 2 to 3 years since her last visit but when she has had her blood pressure and cholesterol checked, she has required no medications or prescriptions. [facility] Medical History no medical history no medical history Home Medications ???Medication ???Instructions ???Recorded ???Last Taken ???Type pantoprazole 20 mg tablet,delayed 20 mg PO DAILY #14 tabs 09/02/24 Unknown Rx release Allergy/AdvReac Type Severity Reaction Status Date / Time Penicillins (PCN) Allergy Rash Verified 09/02/24 08:24 omeprazole (From Prilosec) AdvReac Nausea/Vom/ Verified 09/02/24 08:24 Diarrhea omeprazole magnesium (From AdvReac Nausea/Vom/ Verified 09/02/24 08:24 Prilosec) Diarrhea Family History Mother Hypertension Thyroid disorder Arthritis Father , cancer Cancer liver, esophageal Surgical History no surgical history Social History Smoking Status: Current every day smoker tobacco type: cigarettes ROS ROS ED Constitutional Constitutional ED: Denies chills or fever(s) Eyes Eyes: Denies change in vision or diplopia ENT ENT ED: Denies rhinorrhea or sore throat Cardiovascular Cardiovascular: Reports as per HPI, chest pain and radiating jaw, neck or arm pain; Denies palpitations Respiratory/Chest Respiratory/Chest: Denies cough or dyspnea Gastrointestinal Gastrointestinal: Reports abdominal pain; Denies diarrhea, nausea or vomiting Genitourinary Genitourinary ED: Denies dysuria or hematuria Musculoskeletal Musculoskeletal: Denies back pain or neck pain Integumentary Denies abscess or rash Neurologic Neurologic: Denies headache(s), paresthesias or weakness Psychiatric Psychiatric: Denies anxiety or suicidal thoughts EXAM Physical Exam Const Vital Signs: 09/02/24 08:25 09/02/24 09:14 09/02/24 09:14 Temperature 97.6 F L Temperature Source Temporal Pulse Rate 91 Respiratory Rate 16 Respiratory Effort Normal Non-Labored Respiratory Pattern Normal Blood Pressure 206/107 H Blood Pressure Mean 140 Pulse Ox 100 98 Oxygen Delivery Method Room Air Room Air 09/02/24 13:00 Temperature Temperature Source Pulse Rate 83 Respiratory Rate 16 Respiratory Effort Respiratory Pattern Blood Pressure 206/103 H Blood Pressure Mean 137 Pulse Ox 97 Oxygen Delivery Method Room Air Positive well nourished and well developed General Appearance ED: well developed and NAD HEENT Reports moist mucous membranes normocephalic and atraumatic Eyes PERRL and EOMs intact bilaterally Neck full ROM and supple Chest Wall inspection of chest normal and palpation of chest normal Resp normal respiratory effort and clear to auscultation bilaterally Cardio regular rate, regular rhythm and no murmurs Rate: Negative for tachycardic Peripheral Pulses: pulses 2+ throughout GI non-distended GI Narrative: Very mild subjective tenderness left upper quadrant no pulsatile mass palpable. Auscultation: normoactive bowel sounds Palpation: soft Back/Spine no CVA tenderness General Back: other FROM Extremity normal to inspection General Extremety ED: Negative for edema, pulses abnormal or tenderness General Extremity: Negative for edema or pulses abnormal Neuro oriented x3, CN's II-XII intact bilaterally and no sensory (more content not included)... Normal [facility] Eosinophil percentageOrdered By: Brigido Knapp on 09-02-2024 Eosinophils/100 WBC (Bld) 0.4 % 0-5 [facility] Erythrocyte distribution wid th ratioOrdered By: Brigido Knapp on 09-02-2024 Erythrocyte distribution width (RBC) [Ratio] 12.8 % 11.6-14.6 [facility] Erythrocyte distribution wid th standard deviationOrdered By: Brigido Knapp on 09-02-2024 Erythrocyte distribution width (RBC) [Entitic vol] 46.1 fL High 35.1-43.9 [facility] Erythrocyte distribution width (RBC) [Ratio] 46.1 fl High 35.1-43.9 [facility] Estimation of creatinine jordan aranceOrdered By: Brigido Knapp on 09-02-2024 Estimated Creatinine Clearance Calc 89.35 ml/min 50-250 [facility] GFR/1.73 sq M.predicted wilman g non-blacks MDRD (S/P/Bld) [Vol rate/Area]Ordered By: Brigido Knapp on 09-02-2024 Estimated GFR (MDRD) Non-Af Amer 102 >60 [facility] Comment on above: mL/min/1.73m2 CKD-EP I Creatinine Equation (2020) Glomerular filtration rate ( GFR) estimation/1.73 sq m using serum, plasma, or whole bOrdered By: Brigido Knapp on 09-02-2024 GFR/1.73 sq M.predicted among non-blacks MDRD (S/P/Bld) [Vol rate/Area] 102 mL/min/{1.73_m2} >60 [facility] Comment on above: mL/min/1.73m2 CKD-EP I Creatinine Equation (2020) Hematocrit Auto (Bld) [Volum e fraction]Ordered By: Brigido Knapp on 09-02-2024 Hematocrit (Bld) [Volume fraction] 45.9 % 37-47 [facility] Hemoglobin measurementOrdere d By: Brigido Knapp on 09-02-2024 Hemoglobin (Bld) [Mass/Vol] 15.8 g/dL High 12.0-15.0 [facility] Immature granulocytes/100 WB C Auto (Bld)Ordered By: Brigido Knapp on 09-02-2024 Immature granulocytes/100 WBC (Bld) 0.500 % 0.0-0.9 [facility] Comment on above: IG% - Immature Granu locytes (promyelocytes, myelocytes and metamyelocytes) > 1% indicates that a LEFT SHIFT is Present. L499.0042on 09-02-2024 Trop T High Sen 9 ng/L Normal <=14 [facility] Comment on above: Performed By: #### L 500.2500, L501.4021, L100.0100 #### [facility] [address] [place], [address] L499.0043on 09-02-2024 Trop T High Sen Normal <=14 [facility] Comment on above: Result Comment: KATTY ENT DISCHARGED- NO SPECIMEN REC'D Performed By: #### L 499.0043 #### [facility] [address] [place], [address] L501.4021on 09-02-2024 Trop T High Sen 10 ng/L Normal <=14 [facility] Comment on above: Performed By: #### L 500.2500, L501.4021, L100.0100 #### [facility] [address] [place], [address] Lymphocytes Auto (Unsp spec) [#/Vol]Ordered By: Brigido Knapp on 09-02-2024 Lymphocytes (Bld) [#/Vol] 0.90 10*3/uL 0.83-4.5 1 [facility] Lymphocytes/100 WBC Auto (Un sp spec)Ordered By: Brigido Knapp on 09-02-2024 Lymphocytes/100 WBC (Bld) 12.2 % Low 19-41 [facility] MCV (mean corpuscular volume ) determinationOrdered By: Brigido Knapp on 09-02-2024 MCV (RBC) [Entitic vol] 96.2 fL 81-99 [facility] Mean corpuscular hemoglobin (MCH) determinationOrdered By: Brigido Knapp on 09-02-2024 MCH (RBC) [Entitic mass] 33.1 pg High 27.0-32.0 [facility] Mean corpuscular hemoglobin concentration (MCHC) determinationOrdered By: Brigido Knapp on 09-02-2024 MCHC (RBC) [Mass/Vol] 34.4 g/dL 32-36 [facility] Mean platelet volume determi nationOrdered By: Brigido Knapp on 09-02-2024 Platelet mean volume (Bld) [Entitic vol] 10.0 fL 6.2-12.0 [facility] Monocyte percentageOrdered B y: Brigido Knapp on 09-02-2024 Monocytes/100 WBC (Bld) 6.6 % 0-10 [facility] Neutrophil percentageOrdered By: Brigido Knapp on 09-02-2024 Neutrophils/100 WBC (Bld) 79.2 % High 47-70 [facility] No Panel InformationOrdered By: Brigido Knapp on 09-02-2024 Troponin T High Sensitivity 10 ng/L <14 [facility] Nucleated red blood cell per centageOrdered By: Brigido Knapp on 09-02-2024 Nucleated RBC/100 WBC (Bld) [Ratio] 0 % 0-5 [facility] Platelet countOrdered By: Robby Knapp on 09-02-2024 Platelets (Bld) [#/Vol] 221 10*3/uL 150-450 [facility] Potassium (Unsp spec) [Mass/ Vol]Ordered By: Brigido Knapp on 09-02-2024 Potassium [Moles/Vol] 3.7 mmol/L 3.3-5.1 [facility] Potassium measurement (mass/ volume)Ordered By: Brigido Knapp on 09-02-2024 Potassium (Unsp spec) [Mass/Vol] 3.7 mmol/L 3.3-5.1 [facility] RBC Auto (Bld) [#/Vol]Ordere d By: Brigido Knapp on 09-02-2024 RBC (Bld) [#/Vol] 4.77 10*6/uL 4.2-5.4 [facility] Serum creatinine measurement (mass/volume)Ordered By: Brigido Knapp on 09-02-2024 Creatinine [Mass/Vol] 0.64 mg/dL Low 0.70-1.20 [facility] [facility] Serum glucose measurement (m ass/volume)Ordered By: Brigido Knapp on 09-02-2024 Glucose [Mass/Vol] 106 mg/dL High 70-99 [facility] Serum or plasma calcium rowena urement (mass/volume)Ordered By: Brigido Knapp on 09-02-2024 Calcium [Mass/Vol] 9.9 mg/dL 7.6-11.0 [facility] Serum or plasma urea nitroge n measurement (mass/volume)Ordered By: Brigido Knapp on 09-02-2024 Urea nitrogen [Mass/Vol] 10 mg/dL 4-19 [facility] Sodium levelOrdered By: Eugenio Knapp on 09-02-2024 Sodium [Moles/Vol] 137 mmol/L 133-145 [facility] Troponin T.cardiac High sens itivity method [Mass/Vol]Ordered By: Brigido Knapp on 09-02-2024 Troponin T High Sensitivity 2 Hour 9 ng/L <14 [facility] Troponin T.cardiac [Mass/vol ume] in Serum or Plasma by High sensitivity methodOrdered By: Brigido Knapp on 09-02-2024 Troponin T.cardiac High sensitivity method [Mass/Vol] 9 ng/L <14 [facility] White blood cell (WBC) count Ordered By: Brigido Knapp on 09-02-2024 WBC (Bld) [#/Vol] 7.4 10*3/uL 4.4-11.0 [facility] CNOVon 12-23-2022 CNOV Office Visit (UCWSTR) ---- DEWEY KIM ([id number]) 1965 F Date Time Provider Department 12/23/22 7:15 AM TESS BENITEZ [facility] During your visit today, we recorded the following information about you: Temperature Pulse Respiration Blood pressure 98.8 degrees 104/minute 20/minute 148/86 Weight 71.4 kg Tess Benitez APRN.CNP 12/23/2022 7:37 AM Signed Subjective HPI Dewey Kim is a 57 year old female who presents with a sore throat x 2 days. She rates her pain 8/10. States her throat feels raw. She has a productive cough. She denies any known sick contacts. She has had some body aches. She used chloraseptic spray yesterday for her sore throat. Review of Systems Constitutional: Negative for chills, fever and malaise/fatigue. HENT: Positive for sore throat. Negative for congestion and ear pain. Respiratory: Positive for cough and sputum production. Cardiovascular: Negative for chest pain. Gastrointestinal: Negative for diarrhea, nausea and vomiting. Neurological: Negative for headaches. BP 148/86 Pulse 104 Temp 37.1 ?C (98.8 ?F) (Temporal) Resp 20 Wt 71.4 kg (157 lb 6.4 oz) LMP (LMP Unknown) SpO2 97% BMI 27.02 kg/m? PAST MEDICAL HISTORY Diagnosis Date Anxiety state, unspecified Depression Irregular menstrual cycle Irregular periods PMH - PAST MEDICAL HISTORY OF digestive /chest painsr/t anxiety,stress Snoring Urinary calculus, unspecified Renal stones PAST SURGICAL HISTORY Procedure Laterality Date CERVICAL OR THORACIC EPID STEROID INJECTION 2013 [facility] EGD 09/22/14 ALLERGIES Amoxicillin and Omeprazole Magnesium MEDICATIONS azithromycin (ZITHROMAX) 250 mg tablet Take 1 tablet by mouth once daily. Instructions: Take 2 tablets today then one tablet daily for 4 days. (Patient not taking: No sig reported) fluticasone (FLONASE) 50 mcg/actuation nasal spray Use 2 Sprays in each nostril once daily. Rinse mouth after use. (Patient not taking: Reported on 04/28/2022) LORazepam (ATIVAN) 1 mg tablet (Patient not taking: Reported on 04/28/2022) FAMILY HISTORY Problem Relation Age of Onset Cancer Father lung/and esophogeal cancer Hypertension Mother Diabetes Maternal Grandmother other (cva/parkinsons/art erioscerosis [Other]) Paternal Grandfather and heart aneurysm Stroke Paternal Grandmother Breast Cancer Maternal Grandmother Allergies Mother Social History Tobacco Use Smoking status: Every Day Packs/day: 1.00 Years: 1.00 Total pack years: 1.00 Types: Cigarettes Start date: 09/14/2004 Smokeless tobacco: Never Vaping Use Vaping Use: Never used Substance Use Topics Alcohol use: Yes Alcohol/week: 25.0 standard drinks of alcohol Types: 10 Glasses of Wine (5oz) per week Drug use: No Objective Physical Exam Vitals and nursing note reviewed. Constitutional: General: She is not in acute distress. Appearance: Normal appearance. She is not ill-appearing. HENT: Mouth/Throat: Mouth: Mucous membranes are moist. Pharynx: Posterior oropharyngeal erythema present. No oropharyngeal exudate. Cardiovascular: Rate and Rhythm: Normal rate and regular rhythm. Heart sounds: Normal heart sounds. Pulmonary: Effort: Pulmonary effort is normal. No respiratory distress. Breath sounds: Normal breath sounds. No wheezing or rales. Skin: General: Skin is warm and dry. Findings: No erythema or rash. Neurological: Mental Status: She is alert. ASSESSMENT/PLAN: 1. Sore throat - ICD9: 462, ICD10: J02.9 (primary diagnosis) - suspect viral - Alere Strep Test negative, no culture pending - Discussed supportive care treatment with fluids, rest and analgesia. - STREP A MOLECULAR (POC) 2. Laryngitis - ICD9: 464.00, ICD10: J04.0 -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
== END | disposition home or self-care (01) ==
LOC: OPBI 07:39
PROVIDERS: PCP Family Medicine; Referring Provider Family Medicine; Visit Provider Family Medicine
DX: Z12.31 Encounter for screening mammogram for malignant neoplasm of breast (principal)
CPT/HCPCS: 77063; 77067

== ENCOUNTER 2025-01-18 10:00 | Emergency (ER) | payer OTHER, SELFPAY ==
[2025-01-18] VITALS (8 sets, daily range): BP systolic 83–198; BP diastolic 58–100; PULSE 66–90; RESP 14–20; TEMP 36.1–37.2; O2SAT 99–100; BMI 29.0
--- NOTE | 2025-01-18 10:15 | EDS_ITS ---
HPI History of Present Illness HPI Narrative: Patient presents with a right ankle injury that occurred last night. Patient states that she saw her neighbors dog. Patient states that the neighbors dog jumped up and her chain got caught around the patient's ankle. Patient states that she fell and twisted her ankle. Patient states she was unable to bear weight after the fall. Patient describes her pain as aching. Patient denies any paresthesias or weakness. Patient denies any head injury or loss of consc iousness. Patient denies any other injuries. Chief Complaint: Lower Extremity Injury Informant: patient Onset/Context/Timing Onset: Yesterday Context: Sudden Onset Timing: Continuous Quality of Pain: Aching Location: Right ankle Worsened by: Weightbearing, ambulation Relieved by: Nothing Associated Symptoms Associated Symptoms: Negative for Parasthesia, Weakness or Loss of Funtion [facility] Medical History (Updated 01/18/25 @ 13:[address] Abdoulaye Byrd DO) Hypertension Home Medications ?Medication ?Instructions ?Recorded ?Last Taken ?Type pantoprazole 20 mg tablet,delayed 20 mg PO DAILY #14 t abs 09/02/24 Unknown Rx release hydrocodone-acetaminophen 5-325mg 1 tab PO Q6H PRN PRN Pain 3 days 01/18/25 Unknown Rx 5mg-325mg #10 TABLETS Allergy/AdvReac Type Severity Reaction Status Date / Time Penicillins (PCN) Allergy Rash Verified 01/18/25 10:04 omeprazole (From Prilosec) AdvReac Nausea/Vom/ Verified 01/18/25 10:04 Diarrhea omeprazole magnesium (From AdvReac Nausea/Vom/ Verified 01/18/25 10:04 Prilosec) Diarrhea Family History Mother Hypertension Thyroid disorder Arthritis Father , cancer Cancer liver, esophageal Surgical History no surgical history no surgical history Social History Smoking Status: Current every day smoker tobacco type: cigarettes ROS ROS ED Constitutional Constitutional ED: Denies chills or fever(s) Eyes Eyes: Denies blurry vision or change in vision ENT ENT ED: Denies rhinorrhea or sore throat Cardiovascular Cardiovascular: Denies chest pain or palpitations Respiratory/Chest Respiratory/Chest: Denies cough or dyspnea Gastrointestinal Gastrointestinal: Denies nausea or vomiting Genitourinary Genitourinary ED: Denies dysuria or hematuria Musculoskeletal Musculoskeletal: Denies back pain or neck pain Integumentary Denies abscess or rash Neurologic Neurologic: Denies headache(s) or weakness Allergic/Immunologic Allergic/Immunologic ED: Denies mouth swelling or urticaria EXAM Physical Exam Const Vital Signs: 01/18/25 10:02 01/18/25 11:28 01/18/25 12:25 Temperature 97 F L Temperature Source Temporal Pulse Rate 90 79 Pulse Rate [1 (Initial Baseline)] Pulse Rate [2] Pulse Rate [3] Pulse Rate [4] Respiratory Rate 16 19 H Respiratory Rate [1 (Initial Baseline)] Respiratory Rate [2] Respiratory Rate [3] Respiratory Rate [4] Blood Pressure 173/95 H 198/100 H Blood Pressure [1 (Initial Baseline)] Blood Pressure [2] Blood Pressure [3] Blood Pressure [4] Blood Pressure Mean 121 Baseline BP 198/100 Pulse Ox 99 100 Oxygen Delivery Method Room Air Room Air Oxygen Delivery Method [1 (Initial Baseline)] Oxygen Delivery Method [2] Oxygen Delivery Method [3] Oxygen Delivery Method [4] Oxygen Flow Rate (L/min) [1 (Initial Baseline)] Oxygen Flow Rate (L/min) [4] EtCo2 - Document during CPR and with ROSC 33 33 EtCo2 - Document during CPR and with ROSC [1 (Initial Baseline)] EtCo2 - Document during CPR and with ROSC [2] EtCo2 - Document during CPR and with ROSC [3] 01/18/25 12:26 01/18/25 12:39 01/18/25 12:44 Temperature Temperature Source Pulse Rate 77 71 Pulse Rate [1 (Initial Baseline)] 72 Pulse Rate [2] 70 Pulse Rate [3] 74 Pulse Rate [4] 76 Respiratory Rate 16 17 Respiratory Rate [1 (Initial Baseline)] 14 Respiratory Rate [2] 14 Respiratory Rate [3] 14 Respiratory Rate [4] 17 Blood Pressure 137/90 H 185/94 H Blood Pressure [1 (Initial Baseline)] 198/100 H Blood Pressure [2] 83/58 L Blood Pressure [3] 112/67 Blood Pressure [4] 130/90 H Blood Pressure Mean Baseline BP Pulse Ox 100 99 Oxygen Delivery Method Room Air Room Air Oxygen Delivery Method [1 (Initial Baseline)] Nasal Cannula Oxygen Delivery Method [2] Nasal Cannula Oxygen Delivery Method [3] Nasal Cannula Oxygen Delivery Method [4] Nasal Cannula Oxygen Flow Rate (L/min) [1 (Initial Baseline)] 2 Oxygen Flow Rate (L/min) [4] 2 EtCo2 - Document during CPR and with ROSC 35 33 EtCo2 - Document during CPR and with ROSC [1 (Initial Baseline)] 32 EtCo2 - Document during CPR and with ROSC [2] 36 EtCo2 - Document during CPR and with ROSC [3] 37 01/18/25 12:49 Temperature Temperature Source Pulse Rate 77 Pulse Rate [1 (Initial Baseline)] Pulse Rate [2] Pulse Rate [3] Pulse Rate [4] Respiratory Rate 20 H Respiratory Rate [1 (Initial Baseline)] Respiratory Rate [2] Respiratory Rate [3] Respiratory Rate [4] Blood Pressure 180/99 H Blood Pressure [1 (Initial Baseline)] Blood Pressure [2] Blood Pressure [3] Blood Pressure [4] Blood Pressure Mean Baseline BP Pulse Ox 100 Oxygen Delivery Method Room Air Oxygen Delivery Method [1 (Initial Baseline)] Oxygen Delivery Method [2] Oxygen Delivery Method [3] Oxygen Delivery Method [4] Oxygen Flow Rate (L/min) [1 (Initial Baseline)] Oxygen Flow Rate (L/min) [4] EtCo2 - Document during CPR and with ROSC 33 EtCo2 - Document during CPR and with ROSC [1 (Initial Baseline)] EtCo2 - Document during CPR and with ROSC [2] EtCo2 - Document during CPR and with ROSC [3] Positive well nourished and well developed General Appearance ED: well developed and NAD HEENT Reports moist mucous membranes normocephalic and atraumatic Neck full ROM and supple Extremity Extremity Narrative: There is tenderness, edema, and ecchymosis over the right ankle. There is no tenderness over the proximal fibula. There is no tenderness over the fifth metatarsal. Range of motion was limited in all motions of the right ankle secondary to pain. Pedal pulses are equal bilaterally. Strength is 5/5 bilaterally in the lower extremities. There are no sensory deficits noted. Neuro oriented x3, CN's II-XII intact bilaterally, moves all extremities and no sensory deficits noted Sensorium / Orientation: alert Motor Exam: strength 5/5 throughout Psych mental status grossly normal MDM MDM MDM Narrative Medical decision making narrative: Differential diagnosis includes fracture, sprain, and contusion. X-rays of the right ankle will be obtained to assess for fracture. Radiography Diagnostic Testing: Clinical Impression(s) from Imaging Studies Ankle X-Ray 01/18/25 10:42 IMPRESSION: Comminuted fracture of the distal fibular shaft with lateral displacement of the distal fibula fragment. Displaced avulsion fracture of the medial malleolus. Disruption of the ankle mortise as well as the distal tibial fibular joint. Soft tissue swelling. Reading Location: [id number] Ankle X-Ray 01/18/25 12:45 IMPRESSION: Essentially stable exam. Reading Location: [id number] X-rays of the right ankle were obtained. There are 3 views. On my independent interpretation, there is a bimalleolar fracture. There is comminution of the distal fibula fragment. There is displacement of the fracture fragment laterally. There is soft tissue swelling. Radiologist also interpreted the x- rays and agrees. Repeat x-rays of the right ankle were obtained. There are 3 views. On my independent interpretation, there is minimal improvement of the fracture fragments. There is soft tissue swelling. Radiologist also interpreted the x- rays and agrees. Management Discussion w/another healthcare provider: [employer] (Dr. Escudero from podiatry) Treatment and Re-Evaluation Narrative: Patient was given an injection of morphine here. Patient was advised of the need for sedation and reduction. Patient is agreeable with this. Patient was given the opportunity to ask questions. Patient had no further questions. Patient was placed on continuous cardiac and pulse oximeter monitors. After informed written consent was obtained, the patient was sedated with a total of 140 mg of propofol. After adequate sedation, the fracture was attempted to be reduced using traction and countertraction. Patient was placed in a well-padded custom made posterior and sugar-tong splint. Patient tolerated the procedure well. Neurovascular exam was intact before and after the procedure. Repeat x- rays were obtained. There is minimal improvement of the fracture fragments. Case was discussed with Dr. Escudero from podiatry. He will follow-up with the patient as an outpatient in 2 to 3 days. Patient was given a prescription for a short course of Finley. Patient was instructed to follow-up in 2 to 3 days. Patient was instructed to return if worse in any way. Patient understood and was agreeable with the plan. All questions were answered. Procedures Procedural Sedation 1 (Initial Baseline): Consent Signed: Yes Any Problems With Anesthesia: No You/Your family experience fever (hyperthermia) w/anesthesia: No Sedation medication: Propofol Dose: 140 Route: IV Maliampati Score: Class II ASA Classification: II Discharge Plan Triage Chief Complaint: Lower Extremity Injury ED Provider: Abdoulaye Byrd Dx/Rx/DC Orders Clinical Impression: Bimalleolar fracture of right ankle, Hypertension Instructions: ED Ankle Fracture Prescriptions: New hydrocodone-acetaminophen 5-325 mg tablet 1 tab PO Q6H PRN PRN (Reason: Pain) 3 Days Qty: 10 0RF No Action pantoprazole 20 mg tablet,delayed release (DR/EC) 20 mg PO DAILY Qty: 14 0RF Primary Care Provider: Sara Swanson Referrals: Sara Swanson MD [Primary Care Provider] - Jonathon Escudero DPM [Med Staff - Courtesy Staff] - As soon as possible (Call his office today to schedule a follow-up appointment.) Activity Restrictions/Additional Instructions: Use crutches to help with ambulation. Do not put any weight on your right foot or ankle. Print Language: Hebrew Disposition Disposition: Home, Self Care
--- NOTE | 2025-01-18 10:42 | RAD_ITS ---
PROCEDURE: ANKLE MIN 3 VIEWS 01/18/2025 REASON FOR EXAM: INJURY/PAIN TECHNIQUE: ANKLE MIN 3 VIEWS COMPARISON: None FINDINGS: Bones: There is evidence of a comminuted fracture of the distal fibular shaft with the lateral subluxation of the distal fracture fragment. There is evidence of an avulsion fracture of the medial malleolus. Joints: There is disruption of the ankle mortise as well as the distal tibial fibular joint. Soft tissues: Soft tissue swelling. Other: RAD/Ankle min 3 Views IMPRESSION: Comminuted fracture of the distal fibular shaft with lateral displacement of th e distal fibula fragment. Displaced avulsion fracture of the medial malleolus. Disruption of the ankle mortise as well as the distal tibial fibular joint. Soft tissue swelling. Reading Location: [id number]
--- NOTE | 2025-01-18 12:45 | RAD_ITS ---
PROCEDURE: ANKLE MIN 3 VIEWS 01/18/2025 REASON FOR EXAM: INJURY/PAIN Postreduction TECHNIQUE: ANKLE MIN 3 VIEWS COMPARISON: Prior study done earlier in the day. FINDINGS: Bones: Once again, comminuted fracture of the distal fibular shaft as well as avulsion fracture of the medial malleolus. The alignment is maintained. Joints: Disruption of the ankle mortise. Soft tissues: Soft tissue swelling Other: RAD/Ankle min 3 Views IMPRESSION: Essentially stable exam. Reading Location: [id number]
== END 2025-01-18 14:20 | disposition home or self-care (01) ==
PROVIDERS: Emergency Provider Emergency Medicine; PCP Family Medicine; Visit Provider Emergency Medicine
DX: S82.841A Displaced bimalleolar fracture of right lower leg, initial encounter for closed fracture (principal); I10 Essential (primary) hypertension; F17.210 Nicotine dependence, cigarettes, uncomplicated; W54.8XXA Other contact with dog, initial encounter
CPT/HCPCS: 27810; 73610; 99152; 99285; A4216

== ENCOUNTER 2025-01-26 07:01 | Day surgery (SDC) | payer OTHER, SELFPAY ==
--- NOTE | 2025-01-24 16:42 | PAT.ANE_ITS ---
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 When Was Last Pacemaker Check QUESTION #4 FULL TEXT: You/Your Family Experience fever (hyperthermia) with Anesthesia Last Oral Intake Last Oral intake: Last Oral Intake NPO since Meds taken in AM with sips of water? 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 Female Yes 01/24/25 10:38 HX of Motion Sickness No 01/24/25 10:38 HX of N/V After Surgery No 01/24/25 10:38 Non-Smoker No 01/24/25 10:38 Duration of Surgery greater Yes 01/24/25 10:38 than 60 minutes Number of Risk Factors 2 01/24/25 10:38 PONV Score Moderate Risk 01/24/25 10:38 Height & Weight Height & Weight: Anesthesia: Height & Weight Height 5 ft 3 in 01/18/25 10:02 Respiratory Assessment Respiratory Assessment - lecturer in marketing: Respiratory Tract Infection Hx - lecturer in marketing Hx Respiratory Tract Infection No 01/24/25 10:38 STOP Sleep Apnea STOP Sleep Apnea - lecturer in marketing: STOP Sleep Apnea - lecturer in marketing Hx Hypertension No 01/24/25 10:38 Hx Sleep Apnea No 01/24/25 10:38 CPAP No 01/24/25 10:38 BIPAP No 01/24/25 10:38 Do you snore loudly (louder No 01/24/25 10:38 than talking or can be heard Do you often feel tired/ No 01/24/25 10:38 fatigued/ sleepy during daytime? Has anyone observed you stop No 01/24/25 10:38 breathing during sleep? STOP Results Negative 01/24/25 10:38 QUESTION #5 FULL TEXT : Do you snore loudly (louder than talking or can be heard through closed doors)? 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 Specify any problems Hx of Preganancy in last 3 No 01/24/25 10:38 Months Nurse Filling Out Transfusion VCHRISTIN 01/24/25 10:38 & Questions: Date: 01/24/25 01/24/25 10:38 Time: 10:40 01/24/25 10:38 Patient unable to answer at this time (ie. 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: /Reproductive Hx- lecturer in marketing Hx Now No 01/24/25 10:38 Gestational Age (in weeks): EDC: Hx Hx Para Hx Section SAB No 01/24/25 10:38 PFSH Medical History (Updated 01/24/25 @ 10:38 by Kiley Alvarado) Wears glasses Post-menopausal Alcohol use Arthritis Kidney stones Easy bruising Injury of head and neck Smoker Hypertension Home Medications ?Medication ?Instructions ?Recorded ?Last Taken ?Type hydrocodone-acetaminophen 5-325mg 1 tab PO Q6H PRN PRN Pain 3 days 01/18/25 Unknown Rx 5mg-325mg #10 TABLETS losartan 25 mg tablet 25 mg PO DAILY 01/24/25 Unkn own History Allergy/AdvReac Type Severity Reaction Status Date / Time Penicillins (PCN) Allergy Rash Verified 01/24/25 10:29 omeprazole (From Prilosec) AdvReac Nausea/Vom/ Verified 01/24/25 10:29 Diarrhea omeprazole magnesium (From AdvReac Nausea/Vom/ Verified 01/24/25 10:29 Allie) Diarrhea Family History Mother Hypertension Thyroid disorder Arthritis Father , cancer Cancer liver, esophageal Surgical History (Updated 01/24/25 @ 11:09 by Kiley Alvarado) History of laryngoscopy Social History Smoking Status: Current every day smoker tobacco type: cigarettes Audit: Pertinent Findings Pertinent Findings EKG Perinent findings: September 02, 2024. Normal sinus rhythm with sinus arrhythmia. Recommendation Anesthesia Recommendation Anesthesia recommendation: OPTIMIZED for anesthesia
[2025-01-26] VITALS (11 sets, daily range): BP systolic 128–163; BP diastolic 75–96; PULSE 78–92; RESP 16–18; TEMP 36.8–36.9; O2SAT 95–100; BMI 26.5
--- OUTSIDE RECORDS SUMMARY | 2025-01-26 07:08 | XMS RPT_ITS | CCD ---
Author Organization [facility] Care Team Providers Care Line Helper Name Role Phone Sara Swanson Primary Care Provider SARA SWANSON Primary Care Unavailable SARA SWANSON Primary Care Unavailable SARA SWANSON Primary Care Unavailable Sky MCDONOUGH, Dr. Ruiz Primary Care Provider Ra MCDONOUGH, Dr. Fofana Emergency Provider Ra MCDONOUGH, Dr. Fofana Attending Provider Sky MCDONOUGH, Dr. Ruiz Attending Provider Dr. Sara Swanson MD Referring Provider Sky MCDONOUGH, Dr. Ruiz Primary Care Provider Dr. Abdoulaye Byrd DO Emergency Provider Sara Swanson Primary Care Unavailable Abdoulaye Byrd Attending Unavailable Brigido Knapp Attending Unavailable Sara Swanson Primary Care Unavailable Sara Swanson Primary Care Unavailable Jonathon Escudero Attending Unavailable Sara Swanson Attending Unavailable Sara Swanson Referring Unavailable Sara Swanson Primary Care Unavailable Sara Swanson Referring Unavailable Sara Swanson Primary Care Unavailable Sara Swanson Attending Unavailable Allergies Allergy Classification Reported Allergen(s) Allergy Type Date of Onset Reaction(s) Facility (4 sources) Amoxicillin; Translations: [AMOXICILLIN] [facility] (5 sources) Omeprazole Drug Allergy 1 [facility] (4 sources) Omeprazole Drug Allergy 5 Nausea/Vom/Diar anju [facility] (4 sources) Penicillins Allergy to substance 5 Rash [facility] (1 source) Omeprazole Drug Allergy 5 [facility] (1 source) Omeprazole Drug Allergy 5 [facility] (1 source) Penicillins Drug allergy (disorder) 5 [facility] Medications Current Medications Medication Drug Class(es) Dates Sig (Normalized) Sig (Original) acetaminophen 325 mg / HYDROcodone bitartrate 5 mg oral tablet (1 source) Opioid Agonist Start: 01-18-2025 take 1 tablet by mouth every six hours as needed for pain Hydrocodone-Acetam inophen 5-325 mg tablet Active 1 {tbl} PO EVERY 6 HOURS NEEDED as needed for Pain 10 3 0 January 18, 2025 Bimalleolar fracture of right ankle ofloxacin 3 mg/ml otic solution (1 source) [...] pantoprazole 20 mg delayed release oral tablet (4 sources) Proton Pump Inhibitor Start: 09-02-2024 take 1 tablet by mouth once daily Pantoprazole 20 mg tablet,delayed release (DR/EC) Active 20 mg PO DAILY 14 0 September 02, 2024 12:00am Completed/Discontinued Medications Medication Drug Class(es) Dates Sig (Normalized) Sig (Original) [id number] 200 actuat albuterol 0.09 mg/actuat metered dose inhaler (4 sources) beta2-Adrenergic Agonist Start: 08-01-2020 End: 05-06-2021 Albuterol Sulfate 1 INHALER inhaler Discontinued 1 - 2 NMA INHALATION EVERY 4 HOURS NEEDED as needed for Wheezing 1 0 August 01, 2020 1:00am May 06, 2021 [...] 4 days. benzonatate 100 mg oral capsule (4 sources) Non-narcotic Antitussive Start: 08-01-2020 End: 02-20-2021 take 2 capsules by mouth three times daily as needed for cough Benzonatate 100 MG capsule Discontinued 200 mg PO 3 TIMES DAILY NEEDED as needed for Cough 20 0 August 01, 2020 1:00am February 20, 2021 [...] after use. LORazepam 1 mg oral tablet (7 sources) Benzodiazepine Start: 08-18-2014 End: 09-02-2024 take 1 tablet by mouth once daily as needed Lorazepam (Ativan) 1 mg tablet Discontinued 1 mg PO DAILY as needed February 20, 2021 12:00am September 02, 2024 9:17am Problems Active Problems Problem Classification Problem Date Documented Da te Episodic/Chronic Abdominal pain (8 sources) Epigastric pain; Translations: [Epigastric pain] 09-02-2024 Episodic Anxiety disorders (3 sources) Anxiety state; Translations: [Generalized anxiety disorder] Onset: 04-21-2011 04-21-2011 Chronic Essential hypertension (5 sources) Elevated blood pressure; Translations: [Essential (primary) hypertension] 09-02-2024 Chronic Fracture of lower limb (2 sources) Displaced bimalleolar fracture of right lower leg, initial encounter for closed fracture; Translations: [Bimalleolar fracture of right ankle] Onset: 01-18-2025 01-18-2025 Episodic Menstrual disorders (3 sources) Irregular periods; Translations: [Irregular menstruation, unspecified] Onset: 04-21-2011 04-21-2011 Chronic Mood disorders (3 sources) Depressive disorder; Translations: [Other specified depressive episodes] Onset: 04-21-2011 04-21-2011 Chronic Other gastrointestinal disorders (4 sources) Obstipation; Translations: [Constipation, unspecified] 01-26-2019 Episodic Other lower respiratory disease (4 sources) Cough; Translations: [Cough] 08-02-2020 Episodic Other nervous system disorders (4 sources) Tremor; Translations: [Tremor, unspecified] 05-06-2021 Episodic Other screening for suspected conditions (not mental disorders or infectious disease) (1 source) Encounter for screening mammogram for malignant neoplasm of breast; Translations: [Encounter for screening mammogram for malignant neoplasm of breast] Onset: 11-30-2024 Episodic Other upper respiratory infections (2 sources) Sore throat symptom; Translations: [Acute pharyngitis, unspecified] 12-23-2022 Episodic Otitis media and related conditions (1 source) Perforation of right tympanic membrane; Translations: [Unspecified perforation of tympanic membrane, right ear] Episodic Residual codes; unclassified (4 sources) Tobacco user; Translations: [Tobacco use] 08-02-2020 Episodic Skin and subcutaneous tissue infections (1 source) Infection of finger; Translations: [Local infection of the skin and subcutaneous tissue, unspecified] Episodic Spondylosis; intervertebral disc disorders; other back problems (4 sources) Degeneration of intervertebral disc; Translations: [Degeneration of intervertebral disc, site unspecified] 03-25-2021 Chronic Unclassified (4 sources) No history of clinical finding in subject 01-25-2019 Unclassified (1 source) Call his office today to schedule a follow-up appointment. Past or Other Problems Problem Classification Problem Date Documented Da te Episodic/Chronic Nonspecific chest pain (9 sources) Tight chest; Translations: [Other chest pain] Onset: 09-08-2024 08-02-2020 Episodic Other upper respiratory disease (3 sources) Hoarse; Translations: [Dysphonia] Onset: 09-14-2014 09-14-2014 Episodic Results Test Name Value Interpretation Reference Range Facility MR/PATLudmila 01-24-2025 MR/SHAWN [facility] Medical Records Department [address] [place] [address] PAT - Anesthesia 01/24/25 1642 MR#: [id number] Acct: [id number] Name: ADRY KIM #: [id number] : 1965 59 From: Addison Mcgrath MD PCP: Dr. 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 When Was Last Pacemaker Check QUESTION #4 FULL TEXT: You/Your Family Experience fever (hyperthermia) with Anesthesia Last Oral Intake Last Oral intake: Last Oral Intake NPO since Meds taken in AM with sips of water? Meds patient instructed to take am of surgery PONV PONV - legislative director: PONV - legislative director Female Yes 01/24/25 10:38 HX of Motion Sickness No 01/24/25 10:38 HX of N/V After Surgery No 01/24/25 10:38 Non-Smoker No 01/24/25 10:38 Duration of Surgery greater Yes 01/24/25 10:38 than 60 minutes Number of Risk Factors 2 01/24/25 10:38 PONV Score Moderate Risk 01/24/25 10:38 Height Weight Height Weight: Anesthesia: Height Weight Height 5 ft 3 in 01/18/25 10:02 Respiratory Assessment Respiratory Assessment - legislative director: Respiratory Tract Infection Hx - legislative director Hx Respiratory Tract Infection No 01/24/25 10:38 STOP Sleep Apnea STOP Sleep Apnea - legislative director: STOP Sleep Apnea - legislative director Hx Hypertension No 01/24/25 10:38 Hx Sleep Apnea No 01/24/25 10:38 CPAP No 01/24/25 10:38 BIPAP No 01/24/25 10:38 Do you snore loudly (louder No 01/24/25 10:38 than talking or can be heard Do you often feel tired/ No 01/24/25 10:38 fatigued/ sleepy during daytime? Has anyone observed you stop No 01/24/25 10:38 breathing during sleep? STOP Results Negative 01/24/25 10:38 QUESTION #5 FULL TEXT : Do you snore loudly (louder than talking or can be heard through closed doors)? Tobacco Use History Tobacco Use History - legislative director: Tobacco Use History - legislative director Tobacco Use Smoking Status Current every day smoker 01/24/25 10:38 Hx Tobacco Use Yes 01/24/25 10:38 Years Smoking Packs Smoked per Day Smoking Cessation Date was within the last 15 years Hx Smoking Cessation Date Hx Smoking Cessation Counseling Hematologic Medial History Hematologic Hx - legislative director: Hematologic Medical Hx - rn dermatology Hx of Blood Transfusion No 01/24/25 10:38 Hx of Transfusion in last 3 No 01/24/25 10:38 Months Date of Last Transfusion (if within last 3 months) Ever experience any problems No 01/24/25 10:38 with transfusion(s)? Specify any problems Hx of Preganancy in last 3 No 01/24/25 10:38 Months Nurse Filling Out Transfusion VCHRISTIN 01/24/25 10:38 Questions: Date: 01/24/25 01/24/25 10:38 Time: 10:40 01/24/25 10:38 Patient unable to answer at this time (ie. confused, unrespo /Reproducti on History /Reproducti ve History - legislative director: /Reproducti ve Hx- legislative director Hx Now No 01/24/25 10:38 Gestational Age (in weeks): EDC: Hx Hx Para Hx Section SAB No 01/24/25 10:38 PFSH Medical History (Updated 01/24/25 @ 10:38 by Kiley Alvarado) Wears glasses Post-menopausal Alcohol use Arthritis Kidney stones Easy bruising Injury of head and neck Smoker Hypertension Home Medications ???Medication ???Instructions ???Recorded ???Last Taken ???Type hydrocodone-acetamin ophen 5-325mg 1 tab PO Q6H PRN PRN Pain 3 days 01/18/25 Unknown Rx 5mg-325mg #10 TABLETS losartan 25 mg tablet 25 mg PO DAILY 01/24/25 Unknown Hi story Allergy/AdvReac Type Severity Reaction Status Date / Time Penicillins (PCN) Allergy Rash Verified 01/24/25 10:29 omeprazole (From Prilosec) AdvReac Nausea/Vom/ Verified 01/24/25 10:29 Diarrhea omeprazole magnesium (From AdvReac Nausea/Vom/ Verified 01/24/25 10:29 Prilosec) Diarrhea Family History Mother (more content not included)... Normal [facility] Ankle min 3 Viewson 01-19-20 25 Ankle min [address] [facility] Imaging Services [address] [place], [place] [address] Ankle min 3 Views MR#: [id number] Acct: [id number] Name: ADRY KIM Rep #: [id number] : 1965 F 59 From: Denis jordan MD PCP: Dr. Sara Swanson MD Status: REG ER Study: Ankle min 3 Views Date of Exam: 01/18/25 Exam# [id number] Ordering Dr: Abdoulaye Byrd DO PROCEDURE: ANKLE MIN 3 VIEWS 01/18/2025 REASON FOR EXAM: INJURY/PAIN Postreduction TECHNIQUE: ANKLE MIN 3 VIEWS COMPARISON: Prior study done earlier in the day. FINDINGS: Bones: Once again, comminuted fracture of the distal fibular shaft as well as avulsion fracture of the medial malleolus. The alignment is maintained. Joints: Disruption of the ankle mortise. Soft tissues: Soft tissue swelling Other: RAD/Ankle min 3 Views IMPRESSION: Essentially stable exam. Reading Location: [facility] CC: Dr. Abdoulaye Byrd DO; Dr. Sara Swanson MD Brakes Inspector: Signed Normal [facility] Ankle min [address] [facility] Imaging Services [address] [place], [place] [id number] Ankle min 3 Views MR#: [id number] Acct: [id number] Name: ADRY KIM Rep #: [id number] : 1965 F 59 From: Denis jordan MD PCP: Dr. Sara Swanson MD Status: [facility] ER Study: Ankle min 3 Views Date of Exam: 01/18/25 Exam# [id number] Ordering Dr: Abdoulaye Byrd DO PROCEDURE: ANKLE MIN 3 VIEWS 01/18/2025 REASON FOR EXAM: INJURY/PAIN TECHNIQUE: ANKLE MIN 3 VIEWS COMPARISON: None FINDINGS: Bones: There is evidence of a comminuted fracture of the distal fibular shaft with the lateral subluxation of the distal fracture fragment. There is evidence of an avulsion fracture of the medial malleolus. Joints: There is disruption of the ankle mortise as well as the distal tibial fibular joint. Soft tissues: Soft tissue swelling. Other: RAD/Ankle min 3 Views IMPRESSION: Comminuted fracture of the distal fibular shaft with lateral displacement of the distal fibula fragment. Displaced avulsion fracture of the medial malleolus. Disruption of the ankle mortise as well as the distal tibial fibular joint. Soft tissue swelling. Reading Location: [facility] CC: Dr. Abdoulaye Byrd DO; Dr. Sara Swanson MD Brakes Inspector: Signed Normal [facility] Emergency Department Summary on 01-18-2025 Emergency Department Summary [facility] Medical Records Department [address] [place] [id number] Emergency Department Summary 01/18/25 MR#: [id number] Acct: [id number] Name: ADRY KIM Rep #: [id number] : 1965 59 From: Abdoulaye Byrd DO PCP: Dr. Sara Swanson MD Status:DEP ER Location: ED HPI History of Present Illness HPI Narrative: Patient presents with a right ankle injury that occurred last night. Patient states that she saw her neighbors dog. Patient states that the neighbors dog jumped up and her chain got caught around the patient's ankle. Patient states that she fell and twisted her ankle. Patient states she was unable to bear weight after the fall. Patient describes her pain as aching. Patient denies any paresthesias or weakness. Patient denies any head injury or loss of consciousness. Patient denies any other injuries. Chief Complaint: Lower Extremity Injury Informant: patient Onset/Context/Timing Onset: Yesterday Context: Sudden Onset Timing: Continuous Quality of Pain: Aching Location: Right ankle Worsened by: Weightbearing, ambulation Relieved by: Nothing Associated Symptoms Associated Symptoms: Negative for Parasthesia, Weakness or Loss of Funtion [facility] Medical History (Updated 01/18/25 @ 13:[address] Abdoulaye Byrd, DO) Hypertension Home Medications ???Medication ???Instructions ???Recorded ???Last Taken ???Type pantoprazole 20 mg tablet,delayed 20 mg PO DAILY #14 tabs 09/02/24 Unknown Rx release hydrocodone-acetamin ophen 5-325mg 1 tab PO Q6H PRN PRN Pain 3 days 01/18/25 Unknown Rx 5mg-325mg #10 TABLETS Allergy/AdvReac Type Severity Reaction Status Date / Time Penicillins (PCN) Allergy Rash Verified 01/18/25 10:04 omeprazole (From Prilosec) AdvReac Nausea/Vom/ Verified 01/18/25 10:04 Diarrhea omeprazole magnesium (From AdvReac Nausea/Vom/ Verified 01/18/25 10:04 Prilosec) Diarrhea Family History Mother Hypertension Thyroid disorder Arthritis Father , cancer Cancer liver, esophageal Surgical History no surgical history no surgical history Social History Smoking Status: Current every day smoker tobacco type: cigarettes ROS ROS ED Constitutional Constitutional ED: Denies chills or fever(s) Eyes Eyes: Denies blurry vision or change in vision ENT ENT ED: Denies rhinorrhea or sore throat Cardiovascular Cardiovascular: Denies chest pain or palpitations Respiratory/Chest Respiratory/Chest: Denies cough or dyspnea Gastrointestinal Gastrointestinal: Denies nausea or vomiting Genitourinary Genitourinary ED: Denies dysuria or hematuria Musculoskeletal Musculoskeletal: Denies back pain or neck pain Integumentary Denies abscess or rash Neurologic Neurologic: Denies headache(s) or weakness Allergic/Immunologic Allergic/Immunologic ED: Denies mouth swelling or urticaria EXAM Physical Exam Const Vital Signs: 01/18/25 10:02 01/18/25 11:28 01/18/25 12:25 Temperature 97 F L Temperature Source Temporal Pulse Rate 90 79 Pulse Rate [1 (Initial Baseline)] Pulse Rate [2] Pulse Rate [3] Pulse Rate [4] Respiratory Rate 16 19 H Respiratory Rate [1 (Initial Baseline)] Respiratory Rate [2] Respiratory Rate [3] Respiratory Rate [4] Blood Pressure 173/95 H 198/100 H Blood Pressure [1 (Initial Baseline)] Blood Pressure [2] Blood Pressure [3] Blood Pressure [4] Blood Pressure Mean 121 Baseline BP 198/100 Pulse Ox 99 100 Oxygen Delivery Method Room Air Room Air Oxygen Delivery Method [1 (Initial Baseline)] Oxygen Delivery Method [2] Oxygen Delivery Method [3] Oxygen Delivery Method [4] Oxygen Flow Rate (L/min) [1 (Initial Baseline)] Oxygen Flow Rate (L/min) [4] EtCo2 - Document during CPR and with ROSC 33 33 EtCo2 - Document during CPR and with ROSC [1 (Initial Baseline)] EtCo2 - Document during CPR and with ROSC [2] EtCo2 - Document during CPR and with ROSC [3] 01/18/25 12:26 01/18/25 12:39 01/18/25 12:44 Temperature Temperature Source Pulse Rate 77 71 Pulse Rate [1 (Initial Baseline)] 72 Pulse Rate [2] 70 Pulse Rate [3] 74 Pulse Rate [4] 76 Respiratory Rate 16 17 Respiratory Rate [1 (Initial Baseline)] 14 Respiratory Rate [2] 14 Respiratory Rate [3] 14 Respiratory Rate [4] 17 Blood Pressure 137/90 H 185/94 H Blood Pressure [1 (Initial Baseline)] 198/100 H Blood Pressure [2] 83/58 L Blood Pressure [3] 112/67 Blood Pressure [4] 130/90 H Blood Pressure Mean Baseline BP Pulse Ox 100 99 Oxygen Delivery Method Room Air Room Air Oxygen Delivery Method [1 (Initial Baseline)] Nasal Cannula Oxygen Delivery Met (more content not included)... Normal [facility] Breast imaging reportOrdered By: Minna Rosa on 11-23-2024 Study report [facility] Imaging Services [address] [place] [address] SCRN MAMM (CAD)W/JD BILAT MR#: [id number] Acct: [id number] Name: ADRY KIM Rep #: [id number] : 1965 F 59 From: Roberta Rosa MD PCP: Dr. Sara Swanson MD Status: [facility] Study:SCRN MAMM (CAD)W/JD BILAT Date of Exa m: 11/23/24 Exam# [id number] Ordering Dr: Maikol Swanson MD EXAM: SCRN MAMM (CAD)W/JD BILAT 11/23/2024 CLINICAL HISTORY: F, Age 59 y/o , SCREENING TECHNIQUE: Bilateral screening digital breast tomosynthesis with 2D and 3D images. Computeraided detection. COMPARISON: Prior exam(s) dated 06/13/2021, 08/30/2018. FINDINGS: TISSUE DENSITY: The breast tissue is heterogenously dense, which may obscure small masses. The mammogram demonstrates that the patient has dense breasts. Supplemental screening with whole breast ultrasound or MRI may be considered for further evaluation. Bilateral Breast Mammographic Findings: No significant masses, calcifications or other abnormalities are identified. BI/SCRN MAMM (CAD)W/JD BILAT IMPRESSION: Right Breast: BIRADS 1 NEGATIVE. Left Breast: BIRADS 1 NEGATIVE. OVERALL FINAL ASSESSMENT: BIRADS 1 NEGATIVE. RECOMMENDATION: Routine annual follow-up in 1 Year A letter with findings and recommendations will be mailed to the patient. Reading Location: [facility] CC: Dr. Sara Swanson MD ~ Brakes Inspector: Signed [facility] SCRN MAMM (CAD)W/JD BILATo n 11-23-2024 SCRN MAMM (CAD)W/JD BILAT [facility] Imaging Services [address] [place] [address] SCRN MAMM (CAD)W/JD BILAT MR#: [id number] Acct: [id number] Name: ADRY KIM Rep #: [id number] : 1965 F 59 From: Mnina Rosa MD PCP: Dr. Sara Swanson MD Status: REG CLI Study: SCRN MAMM (CAD)W/JD BILAT Date of Exam: 11/13 07/09 Exam# [id number] Ordering Dr: Sara Swanson MD EXAM: SCRN MAMM (CAD)W/JD BILAT 11/23/2024 CLINICAL HISTORY: F, Age 59 y/o , SCREENING TECHNIQUE: Bilateral screening digital breast tomosynthesis with 2D and 3D images. Computer aided detection. COMPARISON: Prior exam(s) dated 06/13/2021, 08/30/2018. FINDINGS: TISSUE DENSITY: The breast tissue is heterogenously dense, which may obscure small masses. The mammogram demonstrates that the patient has dense breasts. Supplemental screening with whole breast ultrasound or MRI may be considered for further evaluation. Bilateral Breast Mammographic Findings: No significant masses, calcifications or other abnormalities are identified. BI/SCRN MAMM (CAD)W/JD BILAT IMPRESSION: Right Breast: BIRADS 1 NEGATIVE. Left Breast: BIRADS 1 NEGATIVE. OVERALL FINAL ASSESSMENT: BIRADS 1 NEGATIVE. RECOMMENDATION: Routine annual follow-up in 1 Year A letter with findings and recommendations will be mailed to the patient. Reading Location: [facility] CC: Dr. Sara Swanson MD Brakes Inspector: Signed Normal [facility] PAP IG w/Reflex HPV GDLNon 0 11-15-2024 ADEQ Comment Normal . [facility] Comment on above: Order Comment: Speci men Comment: [id number] Specimen Comment: No. of containers..01 ThinPrep Vial Result Comment: Sati sfactory for evaluation. Endocervical and/or squamous metaplastic cells (endocervical component) are present. Performed By: #### L 7400.0290 #### [facility] [address] [place], [address] Age Gdln ACOG T 30-65 Normal . [facility] Comment on above: Order Comment: Speci men Comment: [id number] Specimen Comment: No. of containers..01 ThinPrep Vial Performed By: #### L 7400.0290 #### [facility] [address] [place], [place], [id number] COMM . Normal . [facility] Comment on above: Order Comment: Speci men Comment: [id number] Specimen Comment: No. of containers..01 ThinPrep Vial Performed By: #### L 7400.0290 #### [facility] [address] [place], [address] COMMENT Comment Normal . [facility] Comment on above: Order Comment: Speci men Comment: [id number] Specimen Comment: No. of containers..01 ThinPrep Vial Result Comment: This liquid based ThinPrep(R) pap test was screened with the use of an image guided system. Performed By: #### L 7400.0290 #### [facility] [address] [place], [address] DIAG Comment Normal . [facility] Comment on above: Order Comment: Speci men Comment: [id number] Specimen Comment: No. of containers..01 ThinPrep Vial Result Comment: NEGA TIVE FOR INTRAEPITHELIAL LESION OR MALIGNANCY. Performed By: #### L 7400.0290 #### [facility] [address] [place], [address] HPV APTIMA, HR Positive Abnormal Negative [facility] Comment on above: Order Comment: Speci men Comment: [id number] Specimen Comment: No. of containers..01 ThinPrep Vial Result Comment: This nucleic acid amplification test detects fourteen high- risk HPV types (16,18,31,33,35,39,45,51,52,56,58,59,66,68) without differentiation. Performed By: #### L 7400.0290 #### [facility] [address] [place], [address] HPV Kellen 18,45 Positive Abnormal Negative [facility] Comment on above: Order Comment: Speci men Comment: [id number] Specimen Comment: No. of containers..01 ThinPrep Vial Result Comment: Perf ormed at: = - [address] [id number] [employer] Operator: Bobbi Cosme MD, Phone: [phone] Performed at: - [address] [id number] [employer] Operator: Bobbi Cosme MD, Phone: [phone] Performed By: #### L [id number] #### [facility] [address] [place], [address] HPV Kellen Rfx Comment Normal . [facility] Comment on above: Order Comment: Speci men Comment: [id number] Specimen Comment: No. of containers..01 ThinPrep Vial Result Comment: Erika garcia, see HPV Genotype results. Performed By: #### L 7400.0290 #### [facility] [address] [place], [address] HPV Genotype 16 Negative Normal Negative [facility] Comment on above: Order Comment: Speci men Comment: [id number] Specimen Comment: No. of containers..01 ThinPrep Vial Performed By: #### L [id number] #### [facility] [address] [place], [address] PAPSMR Comment Normal . [facility] Comment on above: Order Comment: Speci men Comment: [id number] Specimen Comment: No. of containers..01 ThinPrep Vial Result Comment: The Pap smear is a screening test designed to aid in the detection of premalignant and malignant conditions of the uterine cervix. It is not a diagnostic procedure and should not be used as the sole means of detecting cervical cancer. Both false-positive and false-negative reports do occur. Performed By: #### L 7400.0290 #### [facility] [address] [place], [place], [id number] PERFORM Comment Normal . [facility] Comment on above: Order Comment: Speci men Comment: [id number] Specimen Comment: No. of containers..01 ThinPrep Vial Result Comment: Faviola Elizondo, Screed Person (ASCP) Performed By: #### L 7400.0290 #### [facility] [address] [place], [place], [id number] Absolute lymphocyte countOrd ered By: Sara Swanson on 11-10-2024 Lymphocytes Auto (Unsp spec) [#/Vol] 1.36 10*3/uL 0.83-4.51 [facility] Absolute neutrophil countOrd ered By: Saramichelle Swanson on 11-10-2024 Neutrophils (Bld) [#/Vol] 5.4 10*3/uL 2.0-7.7 [facility] Anion gap in Serum or Plasma Ordered By: Sara Swanson on 11-10-2024 Anion gap [Moles/Vol] 16 mmol/L High 5-15 [facility] Automated lymphocyte count a s percentage of total leukocytesOrdered By: Sara Swanson on 11-10-2024 Lymphocytes/100 WBC Auto (Unsp spec) 17.6 % Low 19-41 [facility] BUN/creatinine ratioOrdered By: Sara Swanson on 11-10-2024 Urea nitrogen/Creatinine [Mass ratio] 15.9 mg/mg 10-20 [facility] Basophil percentageOrdered B y: Sara Swanson on 11-10-2024 Basophils/100 WBC (Bld) 0.9 % 0-1 [facility] Bilirubin, totalOrdered By: Sara Swanson on 11-10-2024 Bilirubin [Mass/Vol] 0.70 mg/dL 0.00-1.30 [facility] CBC W/Diff, Automatedon 10-14 Absolute Lymph 1.36 X10 3/uL Normal 0.83-4.51 [facility] Comment on above: Performed By: #### L 100.0100, L500.4100, L500.4050 ####[facility] [address] [place], [address] Absolute Neut 5.4 X10 3/uL Normal 2.0-7.7 [facility] Comment on above: Performed By: #### L 100.0100, L500.4100, L500.4050 ####[facility] [address] [place], [address] Basophils/100 WBC (Bld) 0.9 % Normal 0-1 [facility] Comment on above: Performed By: #### L 100.0100, L500.4100, L500.4050 ####[facility] [address] [place], [address] Eosinophils/100 WBC (Bld) 1.3 % Normal 0-5 [facility] Comment on above: Performed By: #### L 100.0100, L500.4100, L500.4050 ####[facility] [address] [place], [address] Erythrocyte distribution width (RBC) [Ratio] 13.2 % Normal 11.6-14.6 [facility] Comment on above: Performed By: #### L 100.0100, L500.4100, L500.4050 ####[facility] [address] [place], [address] Hematocrit (Bld) [Volume fraction] 44.0 % Normal 37-47 [facility] Comment on above: Performed By: #### L 100.0100, L500.4100, L500.4050 ####[facility] [address] [place], [address] Hemoglobin (Bld) [Mass/Vol] 15.5 g/dL High 12.0-15.0 [facility] Comment on above: Performed By: #### L 100.0100, L500.4100, L500.4050 ####[facility] [address] [place], [address] IG% 0.500 Normal 0.0-0.9 [facility] Comment on above: Result Comment: IG% - Immature Granulocytes (promyelocytes, myelocytes and metamyelocytes) > 1% indicates that a LEFT SHIFT is Present. Performed By: #### L 100.0100, L500.4100, L500.4050 ####[facility] [address] [place], [address] Lymphocytes/100 WBC (Bld) 17.6 % Low 19-41 [facility] Comment on above: Performed By: #### L 100.0100, L500.4100, L500.4050 ####[facility] [address] [place], [address] MCH (RBC) [Entitic mass] 33.8 pg High 27.0-32.0 [facility] Comment on above: Performed By: #### L 100.0100, L500.4100, L500.4050 ####[facility] [address] [place], [address] MCHC (RBC) [Mass/Vol] 35.2 g/dL Normal 32-36 [facility] Comment on above: Performed By: #### L 100.0100, L500.4100, L500.4050 ####[facility] [address] [place], [address] MCV (RBC) [Entitic vol] 95.9 fL Normal 81-99 [facility] Comment on above: Performed By: #### L 100.0100, L500.4100, L500.4050 ####[facility] [address] [place], [address] Monocytes/100 WBC (Bld) 9.6 % Normal 0-10 [facility] Comment on above: Performed By: #### L 100.0100, L500.4100, L500.4050 ####[facility] [address] [place], [address] Neutrophils/100 WBC (Bld) 70.1 % High 47-70 [facility] Comment on above: Performed By: #### L 100.0100, L500.4100, L500.4050 ####[facility] [address] [place], [address] Nucleated RBC (Bld) [#/Vol] 0 10*3/uL Normal 0-5 [facility] Comment on above: Performed By: #### L 100.0100, L500.4100, L500.4050 ####[facility] [address] [place], [address] Platelet mean volume (Bld) [Entitic vol] 10.9 fL Normal 6.2-12.0 [facility] Comment on above: Performed By: #### L 100.0100, L500.4100, L500.4050 ####[facility] [address] [place], [address] Platelets (Bld) [#/Vol] 252 10*3/uL Normal 150-450 [facility] Comment on above: Performed By: #### L 100.0100, L500.4100, L500.4050 ####[facility] [address] [place], [address] RBC (Bld) [#/Vol] 4.59 10*6/uL Normal 4.2-5.4 [facility] Comment on above: Performed By: #### L 100.0100, L500.4100, L500.4050 ####[facility] [address] [place], [address] RDW SD 47.3 fl High 35.1-43.9 [facility] Comment on above: Performed By: #### L 100.0100, L500.4100, L500.4050 ####[facility] [address] [place], [address] WBC (Bld) [#/Vol] 7.7 10*3/uL Normal 4.4-11.0 [facility] Comment on above: Performed By: #### L 100.0100, L500.4100, L500.4050 ####[facility] [address] [place], [address] Calculated very low density lipoprotein (VLDL) cholesterol measurementOrdered By: Sara Swanson on 11-10-2024 Calculated very low density lipoprotein (VLDL) cholesterol measurement 15 mg/dL 5-40 [facility] Carbon dioxide, total [Moles /volume] in Central venous bloodOrdered By: Sara Swanson on 11-10-2024 CO2 [Moles/Vol] 20.3 mmol/L Low 21.0-32.0 [facility] Cervical or vaginal specimen microscopic examination by liquid based cytology (reportOrdered By: Sara Swanson on 11-10-2024 Cytology report Cyto stain.thin prep Doc (Cvx/Vag) Comment . [facility] Comment on above: Criteria met, see HP V Genotype results. Cervical or vagninal specime n microscopic examination by cytology stain (reported asOrdered By: Sara Swanson on 11-10-2024 Cytology report Cyto stain Doc (Cvx/Vag) Comment . [facility] Comment on above: The Pap smear is a s creening test designed to aid in thedetection of premalignant and malignant conditions of theuterine cervix. It is not a diagnostic procedure andshould not be used as the sole means of detecting cervicalcancer. Both false-positive and false-negative reports dooccur. Cervical specimen Aptima HPV assayOrdered By: Sara Swanson on 11-10-2024 HPV E6+E7 mRNA SHILPA+probe Ql (Cvx) Positive High Negative [facility] Comment on above: Performed at: [facility] [address] [id number] Director: Bobbi Cosme MD, Phone: [phone] at: WB - [facility] [address] [id number] Director: Bobbi Cosme MD, Phone: [phone] Cervical specimen human stephen lloma virus (HPV) type 16 DNA detection by probe with sigOrdered By: Saramaikol Swanson on 11-10-2024 HPV 16 DNA Probe+sig amp Ql (Cvx) Negative Negative [facility] Chloride assayOrdered By: Walter tomasalla Sky on 11-10-2024 Chloride [Moles/Vol] 99 mmol/L 98-108 [facility] Comprehensive Metabolic Prof ilon 11-10-2024 Albumin [Mass/Vol] 4.8 g/dL Normal 3.5-5.0 [facility] Comment on above: Performed By: #### L 100.0100, L500.4100, L500.4050 ####[facility] [address] [place], [address] Albumin/Globulin [Mass ratio] 1.7 {ratio} Normal 0.9-2.4 [facility] Comment on above: Performed By: #### L 100.0100, L500.4100, L500.4050 ####[facility] [address] [place], [address] ALK PHOS 89 U/L Normal 35-104 [facility] Comment on above: Performed By: #### L 100.0100, L500.4100, L500.4050 ####[facility] [address] [place], [address] ALT [Catalytic activity/Vol] 31 U/L Normal <=34 [facility] Comment on above: Performed By: #### L 100.0100, L500.4100, L500.4050 ####[facility] [address] [place], [address] AST [Catalytic activity/Vol] 42 U/L High <=31 [facility] Comment on above: Performed By: #### L 100.0100, L500.4100, L500.4050 ####[facility] [address] [place], [address] Bilirubin [Mass/Vol] 0.70 mg/dL Normal 0.00-1.30 [facility] Comment on above: Performed By: #### L 100.0100, L500.4100, L500.4050 ####[facility] [address] [place], [address] BUN/CRE 15.9 RATIO Normal 10-20 [facility] Comment on above: Performed By: #### L 100.0100, L500.4100, L500.4050 ####[facility] [address] [place], [address] Calcium [Mass/Vol] 10.0 mg/dL Normal 7.6-11.0 [facility] Comment on above: Performed By: #### L 100.0100, L500.4100, L500.4050 ####[facility] [address] [place], [address] Chloride [Moles/Vol] 99 mmol/L Normal 98-108 [facility] Comment on above: Performed By: #### L 100.0100, L500.4100, L500.4050 ####[facility] [address] [place], [address] CO2 [Moles/Vol] 20.3 mmol/L Low 21.0-32.0 [facility] Comment on above: Performed By: #### L 100.0100, L500.4100, L500.4050 ####[facility] [address] [place], [address] Creatinine [Mass/Vol] 0.59 mg/dL Low 0.70-1.20 [facility] Comment on above: Performed By: #### L 100.0100, L500.4100, L500.4050 ####[facility] [address] [place], [address] GAP 16 High 5-15 [facility] Comment on above: Performed By: #### L 100.0100, L500.4100, L500.4050 ####[facility] [address] [place], [address] GFR/1.73 sq M.predicted among non-blacks MDRD (S/P/Bld) [Vol rate/Area] 104 mL/min/{1.73_m2} Normal >60 [facility] Comment on above: Result Comment: mL/m in/1.73m2 CKD-EPI Creatinine Equation (2020) Performed By: #### L 100.0100, L500.4100, L500.4050 ####[facility] [address] [place], [address] Globulin (S) [Mass/Vol] 2.9 g/dL Normal 2.2-4.[address] [facility] Comment on above: Performed By: #### L 100.0100, L500.4100, L500.4050 ####[facility] [address] [place], [address] Glucose [Mass/Vol] 90 mg/dL Normal 70-99 [facility] Comment on above: Performed By: #### L 100.0100, L500.4100, L500.4050 ####[facility] [address] [place], [address] Potassium [Moles/Vol] 4.5 mmol/L Normal 3.3-5.1 [facility] Comment on above: Performed By: #### L 100.0100, L500.4100, L500.4050 ####[facility] [address] [place], [address] Sodium [Moles/Vol] 136 mmol/L Normal 133-145 [facility] Comment on above: Performed By: #### L 100.0100, L500.4100, L500.4050 ####[facility] [address] [place], [address] T PROT 7.7 g/dL Normal 5.9-8.4 [facility] Comment on above: Performed By: #### L 100.0100, L500.4100, L500.4050 ####[facility] [address] [place], [address] Urea nitrogen [Mass/Vol] 9 mg/dL Normal 4-19 [facility] Comment on above: Performed By: #### L 100.0100, L500.4100, L500.4050 ####[facility] [address] [place], [address] Eosinophil percentageOrdered By: Sara Swanson on 11-10-2024 Eosinophils/100 WBC (Bld) 1.3 % 0-5 [facility] Erythrocyte distribution wid th ratioOrdered By: Sara Swanson on 11-10-2024 Erythrocyte distribution width (RBC) [Ratio] 13.2 % 11.6-14.6 [facility] Erythrocyte distribution wid th standard deviationOrdered By: Sara Swanson on 11-10-2024 Erythrocyte distribution width (RBC) [Ratio] 47.3 fl High 35.1-43.9 [facility] Glomerular filtration rate ( GFR) estimation/1.73 sq m using serum, plasma, or whole bOrdered By: Sara Swanson on 11-10-2024 GFR/1.73 sq M.predicted among non-blacks MDRD (S/P/Bld) [Vol rate/Area] 104 mL/min/{1.73_m2} >60 [facility] Comment on above: mL/min/1.73m2 CKD-EP I Creatinine Equation (2020) Hematocrit Auto (Bld) [Volum e fraction]Ordered By: Sara Swanson on 11-10-2024 Hematocrit (Bld) [Volume fraction] 44.0 % 37-47 [facility] Hemoglobin measurementOrdere d By: Sara Swanson on 11-10-2024 Hemoglobin (Bld) [Mass/Vol] 15.5 g/dL High 12.0-15.0 [facility] Immature granulocytes/100 WB C Auto (Bld)Ordered By: Sara Swanson on 11-10-2024 Immature granulocytes/100 WBC (Bld) 0.500 % 0.0-0.9 [facility] Comment on above: IG% - Immature Granu locytes (promyelocytes, myelocytes and metamyelocytes) > 1% indicates that a LEFT SHIFT is Present. LDL calc ser/plasOrdered By: Sara Swanson on 11-10-2024 Cholesterol in LDL [Mass/Vol] 140 mg/dL [facility] Comment on above: Kodphvexba=945-900 m g/dL & Higher Unuz=938 mg/dL or greater Laboratory - Chemistry and C hemistry - challengeOrdered By: Sara Swanson on 11-10-2024 AST [Catalytic activity/Vol] 42 U/L High <32 [facility] - CytologyOrdered By: Sara Swanson on 11-10-2024 Screed Person Cyto stain Nom (Cvx/Vag) [ID] Comment . [facility] Comment on above: Faviola Elizondo, Cytolo gist (ASCP) Laboratory - Miscellaneous t estsOrdered By: Sara Swanson on 11-10-2024 Service comment (Unsp spec) [Interp] . . [facility] Lipid Profileon 11-10-2024 CHOL:HDL 2.59 Normal [facility] Comment on above: Performed By: #### L 100.0100, L500.4100, L500.4050 ####[facility] [address] [place], [place], [address] Cholesterol [Mass/Vol] 253 mg/dL High <=200 [facility] Comment on above: Result Comment: Chol esterol level, Desirable <200 mg/dL Borderline high cholesterol 200-239 mg/dL High cholesterol >=240 mg/dL Recommendations of the NCEP Adult Treatment Panel for the following risk-cutoff thresholds for the [place] population. Performed By: #### L 100.0100, L500.4100, L500.4050 ####[facility] [address] [place], [address] Cholesterol in HDL [Mass/Vol] 98 mg/dL Normal [facility] Comment on above: Result Comment: Angelina onal Cholesterol Education Program (NCEP) guidelines: <40 mg/dL: Low HDL-cholesterol (major risk factor for CHD) >= 60 mg/dL: High HDL-cholesterol (negative risk factor for CHD) HDL-cholesterol is affected by a number of factors, e.g. smoking, exercise, hormones, sex and age. Performed By: #### L 100.0100, L500.4100, L500.4050 ####[facility] [address] [place], [address] Cholesterol in LDL [Mass/Vol] 140 mg/dL Normal [facility] Comment on above: Result Comment: Bord nqclhn=383-917 mg/dL Higher Kfeu=715 mg/dL or greater Performed By: #### L 100.0100, L500.4100, L500.4050 ####[facility] [address] [place], [address] Cholesterol in VLDL [Mass/Vol] 15 mg/dL Normal 5-40 [facility] Comment on above: Performed By: #### L 100.0100, L500.4100, L500.4050 ####[facility] [address] [place], [address] Triglyceride [Mass/Vol] 76 mg/dL Normal [facility] Comment on above: Result Comment: The drugs N-Acetylcysteine and Metamizole may falsely depress this assay. Normal range: <150 mg/dL Borderline High: 150-199 mg/dL High: 200-499 mg/dL Very High: >500 mg/dL Performed By: #### L 100.0100, L500.4100, L500.4050 ####[facility] [address] [place], [address] MCV (mean corpuscular volume ) determinationOrdered By: Sara Swanson on 11-10-2024 MCV (RBC) [Entitic vol] 95.9 fL 81-99 [facility] Mean corpuscular hemoglobin (MCH) determinationOrdered By: Sara Swanson on 11-10-2024 MCH (RBC) [Entitic mass] 33.8 pg High 27.0-32.0 [facility] Mean corpuscular hemoglobin concentration (MCHC) determinationOrdered By: Sara Swanson on 11-10-2024 MCHC (RBC) [Mass/Vol] 35.2 g/dL 32-36 [facility] Mean platelet volume determi nationOrdered By: Sara Swanson on 11-10-2024 Platelet mean volume (Bld) [Entitic vol] 10.9 fL 6.2-12.0 [facility] Monocyte percentageOrdered B y: Sara Swanson on 11-10-2024 Monocytes/100 WBC (Bld) 9.6 % 0-10 [facility] Neutrophil percentageOrdered By: Sara Sky on 11-10-2024 Neutrophils/100 WBC (Bld) 70.1 % High 47-70 [facility] No Panel InformationOrdered By: Sara Swanson on 11-10-2024 Pap Smear Additional Comments 30-65 . [facility] Pap Smear Specimen Adequacy Comment . [facility] Comment on above: Satisfactory for gianna luation. Endocervical and/or squamous metaplasticcells (endocervical component) are present. Nucleated red blood cell per centageOrdered By: Sara Swanson on 11-10-2024 Nucleated RBC/100 WBC (Bld) [Ratio] 0 % 0-5 [facility] Platelet countOrdered By: Walter Swanson on 11-10-2024 Platelets (Bld) [#/Vol] 252 10*3/uL 150-450 [facility] Potassium measurement (mass/ volume)Ordered By: Sara Swanson on 11-10-2024 Potassium (Unsp spec) [Mass/Vol] 4.5 mmol/L 3.3-5.1 [facility] RBC Auto (Bld) [#/Vol]Ordere d By: Sara Swanson on 11-10-2024 RBC (Bld) [#/Vol] 4.59 10*6/uL 4.2-5.4 [facility] Screening total cholesterol/ high density lipoprotein (HDL) cholesterol ratioOrdered By: Sara Swanson on 11-10-2024 Cholesterol.total/Choles terol in HDL [Mass ratio] 2.59 {ratio} [facility] Serum creatinine measurement (mass/volume)Ordered By: Sara Swanson on 11-10-2024 Creatinine [Mass/Vol] 0.59 mg/dL Low 0.70-1.20 [facility] Serum globulin measurementOr dered By: Sara Swanson on 11-10-2024 Globulin (S) [Mass/Vol] 2.9 g/dL 2.2-4.2 [facility] Serum glucose measurement (m ass/volume)Ordered By: Sara Swanson on 11-10-2024 Glucose [Mass/Vol] 90 mg/dL 70-99 [facility] Serum or plasma alanine house otransferase (ALT) measurementOrdered By: Sara Swanson on 11-10-2024 ALT [Catalytic activity/Vol] 31 U/L <35 [facility] Serum or plasma albumin rowena urement (mass/volume)Ordered By: Sara Swanson on 11-10-2024 Albumin [Mass/Vol] 4.8 g/dL 3.5-5.0 [facility] Serum or plasma albumin/glob ulin mass ratioOrdered By: Sara Swanson on 11-10-2024 Albumin/Globulin [Mass ratio] 1.7 {ratio} 0.9-2.4 [facility] Serum or plasma alkaline su sphatase measurementOrdered By: Sara Swanson on 11-10-2024 ALP [Catalytic activity/Vol] 89 U/L 35-104 [facility] Serum or plasma calcium rowena urement (mass/volume)Ordered By: Sara Swanson on 11-10-2024 Calcium [Mass/Vol] 10.0 mg/dL 7.6-11.0 [facility] Serum or plasma cholesterol in HDL measurement (mass/volume)Ordered By: Sara Swanson on 11-10-2024 Cholesterol in HDL [Mass/Vol] 98 mg/dL >40 [facility] Comment on above: National Cholesterol Education Program (NCEP) guidelines:<40 mg/dL: Low HDL-cholesterol (major risk factor for CHD)>= 60 mg/dL: High HDL-cholesterol (negative risk factor for CHD)HDL-cholesterol is affected by a number of factors, e.g. smoking, exercise, hormones, sex and age. Serum or plasma cholesterol measurement (mass/volume)Ordered By: Sara Swanson on 11-10-2024 Cholesterol [Mass/Vol] 253 mg/dL High <201 [facility] Comment on above: Cholesterol level, D esirable <200 mg/dLBorderline high cholesterol 200-239 mg/dLHigh cholesterol >=240 mg/dLRecommendations of the NCEP Adult Treatment Panel for the following risk-cutoff thresholds for the [place] population. Serum or plasma urea nitroge n measurement (mass/volume)Ordered By: Sara Swanson on 11-10-2024 Urea nitrogen [Mass/Vol] 9 mg/dL 4-19 [facility] Sodium levelOrdered By: Rui Swanson on 11-10-2024 Sodium [Moles/Vol] 136 mmol/L 133-145 [facility] Total proteinOrdered By: Evin Swanson on 11-10-2024 Protein [Mass/Vol] 7.7 g/dL 5.9-8.4 [facility] Triglycerides measurementOrd ered By: Sara Swanson on 11-10-2024 Triglyceride [Mass/Vol] 76 mg/dL <199 [facility] Comment on above: The drugs N-Acetylcy steine and Metamizole may falsely depress this assay. Normal range: <150 mg/dLBorderline High: 150-199 mg/dLHigh: 200-499 mg/dLVery High: >500 mg/dL White blood cell (WBC) count Ordered By: Sara Swanson on 11-10-2024 WBC (Bld) [#/Vol] 7.7 10*3/uL 4.4-11.0 [facility] 12 Lead EKGon 09-02-2024 [address] [facility] [address] [place] [address] 12 Lead EKG 09/02/24 0829 MR#: [id number] Acct: [id number] Name: ADRY KIM Rep #: [id number] : 1965 59 From: Diego Sheth MD [...] Normal ECG Confirmed by JEM MCDONOUGH, DIEGO ([id number]), commissioning editor CHERRIE ENRIQUEZ ([id number]) on 09/05/2024 7:29:31 AM Referred By: BB Confirmed By: DIEGO SHETH MD 09/05/24 0729 Date Diego Sheth MD CC: Dr. Brigido Knapp MD; Dr. Sara Swanson MD Signed Normal [facility] Absolute lymphocyte countOrd ered By: Brigido Knapp on 09-02-2024 Lymphocytes Auto (Unsp spec) [#/Vol] 0.90 10*3/uL 0.83-4.51 [facility] Absolute neutrophil countOrd ered By: Brigido Knapp on 09-02-2024 Neutrophils (Bld) [#/Vol] 5.8 10*3/uL 2.0-7.7 [facility] Anion gap in Serum or Plasma Ordered By: Brigido Knapp on 09-02-2024 Anion gap [Moles/Vol] 14 mmol/L 5-15 [facility] Automated lymphocyte count a s percentage of total leukocytesOrdered By: Brigido Knapp on 09-02-2024 Lymphocytes/100 WBC Auto (Unsp spec) 12.2 % Low 19-41 [facility] BUN/creatinine ratioOrdered By: Brigido Knapp on 09-02-2024 Urea nitrogen/Creatinine [Mass ratio] 16.1 mg/mg - [facility] Basic Metabolic Profile (BMP )on 09-02-2024 BUN/CRE 16.1 RATIO Normal - [facility] Comment on above: Performed By: #### L 500.2500, L501.4021, L100.0100 #### [facility] [address] [place], [address] Calcium [Mass/Vol] 9.9 mg/dL Normal 7.6-11.0 [facility] Comment on above: Performed By: #### L 500.2500, L501.4021, L100.0100 #### [facility] [address] [place], [address] Chloride [Moles/Vol] 100 mmol/L Normal 98-108 [facility] Comment on above: Performed By: #### L 500.2500, L501.4021, L100.0100 #### [facility] [address] [place], [address] CO2 [Moles/Vol] 22.4 mmol/L Normal 21.0-32.0 [facility] Comment on above: Performed By: #### L 500.2500, L501.4021, L100.0100 #### [facility] [address] [place], [address] Creatinine [Mass/Vol] 0.64 mg/dL Low 0.70-1.20 [facility] Comment on above: Performed By: #### L 500.2500, L501.4021, L100.0100 #### [facility] [address] [place], [address] ECRCL 89.35 ml/min Normal 50-250 [facility] Comment on above: Performed By: #### L 500.2500, L501.4021, L100.0100 #### [facility] [address] [place], [address] GAP 14 Normal 5-15 [facility] Comment on above: Performed By: #### L 500.2500, L501.4021, L100.0100 #### [facility] [address] [place], [address] GFR/1.73 sq M.predicted among non-blacks MDRD (S/P/Bld) [Vol rate/Area] 102 mL/min/{1.73_m2} Normal >60 [facility] Comment on above: Result Comment: mL/m in/1.73m2 CKD-EPI Creatinine Equation (2020) Performed By: #### L 500.2500, L501.4021, L100.0100 #### [facility] [address] [place], [address] Glucose [Mass/Vol] 106 mg/dL High 70-99 [facility] Comment on above: Performed By: #### L 500.2500, L501.4021, L100.0100 #### [facility] [address] [place], [address] Potassium [Moles/Vol] 3.7 mmol/L Normal 3.3-5.1 [facility] Comment on above: Performed By: #### L 500.2500, L501.4021, L100.0100 #### [facility] [address] [place], [address] Sodium [Moles/Vol] 137 mmol/L Normal 133-145 [facility] Comment on above: Performed By: #### L 500.2500, L501.4021, L100.0100 #### [facility] [address] [place], [address] Urea nitrogen [Mass/Vol] 10 mg/dL Normal 4-19 [facility] Comment on above: Performed By: #### L 500.2500, L501.4021, L100.0100 #### [facility] [address] [place], [address] Basophil percentageOrdered B y: Brigido Knapp on 09-02-2024 Basophils/100 WBC (Bld) 1.1 % High 0-1 [facility] CBC W/Diff, Automatedon 08-14 Absolute Lymph 0.90 X10 3/uL Normal 0.83-4.51 [facility] Comment on above: Performed By: #### L 500.2500, L501.4021, L100.0100 #### [facility] [address] [place], [address] Absolute Neut 5.8 X10 3/uL Normal 2.0-7.7 [facility] Comment on above: Performed By: #### L 500.2500, L501.4021, L100.0100 #### [facility] [address] [place], [address] Basophils/100 WBC (Bld) 1.1 % High 0-1 [facility] Comment on above: Performed By: #### L 500.2500, L501.4021, L100.0100 #### [facility] [address] [place], [address] Eosinophils/100 WBC (Bld) 0.4 % Normal 0-5 [facility] Comment on above: Performed By: #### L 500.2500, L501.4021, L100.0100 #### [facility] [address] [place], [address] Erythrocyte distribution width (RBC) [Ratio] 12.8 % Normal 11.6-14.6 [facility] Comment on above: Performed By: #### L 500.2500, L501.4021, L100.0100 #### [facility] [address] [place], [address] Hematocrit (Bld) [Volume fraction] 45.9 % Normal 37-47 [facility] Comment on above: Performed By: #### L 500.2500, L501.4021, L100.0100 #### [facility] [address] [place], [address] Hemoglobin (Bld) [Mass/Vol] 15.8 g/dL High 12.0-15.0 [facility] Comment on above: Performed By: #### L 500.2500, L501.4021, L100.0100 #### [facility] [address] [place], [address] IG% 0.500 Normal 0.0-0.9 [facility] Comment on above: Result Comment: IG% - Immature Granulocytes (promyelocytes, myelocytes and metamyelocytes) > 1% indicates that a LEFT SHIFT is Present. Performed By: #### L 500.2500, L501.4021, L100.0100 #### [facility] [address] [place], [address] Lymphocytes/100 WBC (Bld) 12.2 % Low 19-41 [facility] Comment on above: Performed By: #### L 500.2500, L501.4021, L100.0100 #### [facility] [address] [place], [address] MCH (RBC) [Entitic mass] 33.1 pg High 27.0-32.0 [facility] Comment on above: Performed By: #### L 500.2500, L501.4021, L100.0100 #### [facility] [address] [place], [address] MCHC (RBC) [Mass/Vol] 34.4 g/dL Normal 32-36 [facility] Comment on above: Performed By: #### L 500.2500, L501.4021, L100.0100 #### [facility] [address] [place], [address] MCV (RBC) [Entitic vol] 96.2 fL Normal 81-99 [facility] Comment on above: Performed By: #### L 500.2500, L501.4021, L100.0100 #### [facility] [address] [place], [address] Monocytes/100 WBC (Bld) 6.6 % Normal 0-[address] [facility] Comment on above: Performed By: #### L 500.2500, L501.4021, L100.0100 #### [facility] [address] [place], [address] Neutrophils/100 WBC (Bld) 79.2 % High 47-70 [facility] Comment on above: Performed By: #### L 500.2500, L501.4021, L100.0100 #### [facility] [address] [place], [address] Nucleated RBC (Bld) [#/Vol] 0 10*3/uL Normal 0-5 [facility] Comment on above: Performed By: #### L 500.2500, L501.4021, L100.0100 #### [facility] [address] [place], [address] Platelet mean volume (Bld) [Entitic vol] 10.0 fL Normal 6.2-12.0 [facility] Comment on above: Performed By: #### L 500.2500, L501.4021, L100.0100 #### [facility] [address] [place], [address] Platelets (Bld) [#/Vol] 221 10*3/uL Normal 150-450 [facility] Comment on above: Performed By: #### L 500.2500, L501.4021,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
--- NOTE | 2025-01-26 07:35 | RAD_ITS ---
PROCEDURE: ANKLE 2 VIEWS 01/26/2025 REASON FOR EXAM: ORIF ANKLE TECHNIQUE: Fluoro in surgery COMPARISON: None FINDINGS: 5 images, 29 seconds fluoro, 4.9456 cGy-cm. Hardware is noted. RAD/Ankle 2 Views IMPRESSION: Fluoro was provided. Reading Location: [facility]
[2025-01-26] MEDS: Lactated Ringers 1,000 ML 15 ML IV (07:41)
--- NOTE | 2025-01-26 07:55 | PRE.ANES_ITS ---
ASA Classification* ASA Classification ASA Classification: 2 Assessment & Plan Anesthesia* Anesthesia Assessment Anesthesia Assessment: Discussed sedation and/or anesthesia options, risks, benefits, and alternatives with patient/parents/legal guardian/POA. Questions invited. The patient/parents/legal guardian/POA seems to understand and agrees to proceed with anesthesia plan. Reviewed the physical assessment, medical history, allergy history and patient home medications list prior to surgery/procedure/anesthetic and documented any changes. Performed airway and anesthesia risk assessments. Anesthesia Type Anesthesia Type: General History Source History Obtained from:: Patient and Chart Anesthesia Focused Assessment* Temperature: 98.4 F Pulse Rate: 86 Blood Pressure: 128/87 Respiratory Rate: 18 Pulse Ox: 97 Oxygen Delivery Method: Room Air Airway Assessment Mouth opens: >3 cm Mallampati Score: I Teeth Condition: Intact Neck Range of motion (ROM): Full ROM Labs Anesthesia Preop lab: CBC WBC 7.7 K/mm3 (4.4-11.0) 11/10/24 09:13 11/10/24 RBC 4.59 M/mm3 (4.2-5.4) 11/10/24 09:13 11/10/24 Hgb 15.5 g/dL (12.0-15.0) H 11/10/24 09:13 5 Hct 44.0 % (37-47) 11/10/24 09:13 11/10/24 Plt Count 252 K/mm3 (150-450) 11/10/24 09:13 11/10/24 CHEMISTRY Potassium 4.5 mmol/L (3.3-5.1) 11/10/24 09:13 11/10/24 Sodium 136 mmol/L (133-145) 11/10/24 09:13 11/10/24 Magnesium 2.1 mg/dL (1.6-2.6) 06/22/18 06:45 06/22/18 BUN 9 mg/dL (4-19) 11/10/24 09:13 11/10/24 Creatinine 0.59 mg/dL (0.70-1.20) L 11/10/24 09:13 Glucose 90 mg/dL (70-99) 11/10/24 09:13 11/10/24 COAG PT 12.2 SECONDS (11.7-14.9) 08/01/20 05:10 Urine Test Negative Negative 05/03/15 08:50 05/03/15 Pre-Assessment Diagnosis/Proposed Procedure Planned Operative Procedure(s): (R) ORIF, Ankle Anesthesia History 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 When Was Last Pacemaker Check QUESTION #4 FULL TEXT: You/Your Family Experience fever (hyperthermia) with Anesthesia Last Oral Intake Last Oral intake: Last Oral Intake NPO since 20:00 01/26/25 07:37 Meds taken in AM with sips of No 01/26/25 07:37 water? 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 Female Yes 01/24/25 10:38 HX of Motion Sickness No 01/24/25 10:38 HX of N/V After Surgery No 01/24/25 10:38 Non-Smoker No 01/24/25 10:38 Duration of Surgery greater Yes 01/24/25 10:38 than 60 minutes Number of Risk Factors 2 01/24/25 10:38 PONV Score Moderate Risk 01/24/25 10:38 Height & Weight Height & Weight: Anesthesia: Height & Weight Height 5 ft 3 in 01/26/25 07:37 Weight: 68.039 kg 01/26/25 07:37 Body Mass Index (BMI) 26.5 01/26/25 07:37 Respiratory Assessment Respiratory Assessment - check writing machine operator: Respiratory Tract Infection Hx - check writing machine operator Hx Respiratory Tract Infection No 01/24/25 10:38 STOP Sleep Apnea STOP Sleep Apnea - check writing machine operator: STOP Sleep Apnea - check writing machine operator Hx Hypertension No 01/24/25 10:38 Hx Sleep Apnea No 01/24/25 10:38 CPAP No 01/24/25 10:38 BIPAP No 01/24/25 10:38 Do you snore loudly (louder No 01/24/25 10:38 than talking or can be heard Do you often feel tired/ No 01/24/25 10:38 fatigued/ sleepy during daytime? Has anyone observed you stop No 01/24/25 10:38 breathing during sleep? STOP Results Negative 01/24/25 10:38 QUESTION #5 FULL TEXT : Do you snore loudly (louder than talking or can be heard through closed doors)? 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 Specify any problems Hx of Preganancy in last 3 No 01/24/25 10:38 Months Nurse Filling Out Transfusion VCHRISTIN 01/24/25 10:38 & Questions: Date: 01/24/25 01/24/25 10:38 Time: 10:40 01/24/25 10:38 Patient unable to answer at this time (ie. confused, unrespo /Reproduction History /Reproductive History - check writing machine operator: /Reproductive Hx- check writing machine operator Hx Now No 01/24/25 10:38 Gestational Age (in weeks): EDC: Hx Hx Para Hx Section SAB No 01/24/25 10:38 Active Medications Active Medications: Current Medications Generic Name Dose Route Start Last Admin Trade Name Freq PRN Reason Stop Dose Admin Lactated Ringer's 1,000 mls @ 15 mls/hr 01/26/25 07:15 01/26/25 07:41 IV 15 mls/hr .Q48H LESLEY Administration PFSH Medical History Wears glasses Post-menopausal Alcohol use Arthritis Kidney stones Easy bruising Injury of head and neck Smoker Hypertension Home Medications ?Medication ?Instructions ?Recorded ?Last Taken ?Type hydrocodone-acetaminophen 5-325mg 1 tab PO Q6H PRN PRN Pain 3 days 01/18/25 Unknown Rx 5mg-325mg #10 TABLETS losartan 25 mg tablet 25 mg PO DAILY 01/24/2501/13 History Allergy/AdvReac Type Severity Reaction Status Date / Time Penicillins (PCN) Allergy Rash Verified 01/26/25 07:36 omeprazole (From Prilosec) AdvReac Nausea/Vom/ Verified 01/26/25 07:36 Diarrhea Family History Mother Hypertension Thyroid disorder Arthritis Father , cancer Cancer liver, esophageal Surgical History (Updated 01/26/25 @ 08:[address] Addison Mcgrath MD) History of epidural steroid injection into cervical spine H/O esophagogastroduodenoscopy History of laryngoscopy Social History Smoking Status: Current every day smoker tobacco type: cigarettes Review of Systems (Anesthesia) ROS Narrative System reviewed and no additional complaints, except as documented.
[2025-01-26] MEDS: Midazolam 2 MG/2 ML Syringe IV (08:48)
[2025-01-26] MEDS: Lidocaine 1% (5 ml sdv) 5 ML Vial 6 ML IV (08:53)
[2025-01-26] MEDS: Bupiv/Epi 0.5% Mpf 30 ML Vial INFILT (09:06)
--- NOTE | 2025-01-26 10:41 | PCM.OPRPT ---
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 Type of Anesthesia: General RN Documented Start/Stop Times: Operation Date: 01/26/25 08:35 Case Time Into Pre-Op 01/26/25 07:08 Anesthesia Start 01/26/25 08:48 Into Room 01/26/25 08:48 Out of Pre-Op 01/26/25 09:00 Procedure Start 01/26/25 09:11 Procedure End 01/26/25 10:34 Anesthesia End 01/26/25 10:39 Out of Room 01/26/25 10:39 Procedure Start Time: 09:11 Procedure Stop Time: 10:34 Select all DRAINS/GRAFTS/IMPLANTS that apply: Implanted device Implanted device details: jose maria screws and fibula plate Estimated Blood Loss: 20ml Specimen collected: No Description of surgery: pt brought to OR and place on table in supine position with a right hip bump. general anesthesia. local 30ml jeff 0.5% with epi 1:200,000 injected locally. sterile prep and drape. long distal fibular incision, blunt disection. care to retract and preserve any vital structures. incision carried through periosteum freeing from side to side to expose the comminuted fracture with severe retraction and overlap. the foot was put in traction and bone clamp were used to reapproximate the fracture and temp pinning. the appropriate lenth fibula plate was placed over the fracture as a buttress and held in place with a distal and proximal bb tack then the clamp was used to butress the comminution and maintain length of the fibula. several lockin and nonlocking screws were inserted but the was significant space between the tib and fib so 3 transyndesmotic screws were placed and very effectively pulle the ankle mortise and syndesmosis into anatomic position. It was confirmed on mini c arm then attention was directed to the medial malleouls where an attempt to fixate percutaneously was made to avoid the fracture blister but failed to appropriately reduce the fragment so an anterior incision was made and a freer was used to reach into the medial gutter of the ankle joint and push the fragment into anatomic posistion. one 4.0 screw effectively secure the fragment. the wounds were flushed with saline. a sterile DSD was applied with a posterior splint and the tourniquet was deflated. full perfusion was noted without excess bleeding. Surgical Findings: pt tolerated anesthesia and procedure well Complications Complications: No Admit VTE Documentation VTE Mechan Device Prophylaxis: SCD's VTE Pharm Prophylaxis ordered?: No Reason prophylaxis not ordered: Procedure Not Indicated
--- NOTE | 2025-01-26 10:44 | PCM.POST.ANE ---
Anesthesia: Postop Eval I Current Vital Signs Temperature: 98.3 F Pulse Rate: 78 Blood Pressure: 150/76 Respiratory Rate: 16 Pulse Ox: 97 Assessment Airway patent: Yes Spontaneous unlabored respirations: Yes nausea: No Vomiting: No Anesthesia Complication: No Fluid Hydration Crystalloid volume administer (ml): 1,400 Total IV fluid infused: 1,400 Progress Note Anesthesia document: Postop Eval 1 completed: Yes
== END 2025-01-26 13:14 | disposition home or self-care (01) ==
LOC: SDC 07:05 → AC 07:06
PROVIDERS: PCP Family Medicine; Referring Provider Podiatrist Foot & Ankle Surgery; Visit Provider Podiatrist Foot & Ankle Surgery
PROC: (CPT 27814; principal; 2025-01-26 08:15)
DX: S82.841A Displaced bimalleolar fracture of right lower leg, initial encounter for closed fracture (principal); S93.431A Sprain of tibiofibular ligament of right ankle, initial encounter; W19.XXXA Unspecified fall, initial encounter; I10 Essential (primary) hypertension; F17.210 Nicotine dependence, cigarettes, uncomplicated; Z79.899 Other long term (current) drug therapy
CPT/HCPCS: 27814; 27829; 01480; 73600; 76000; 93005; C1713; J2405